=== PATIENT | female | born 1985 | race Caucasian/White ===

== ENCOUNTER 2019-09-05 11:25 | Emergency (ER) | payer OTHER, SELFPAY ==
--- NOTE | ~2019-09-05 | XR_ITS ---
EXAMINATION: XR foot LT min 3V DATE: 09/05/2019 11:48 INDICATION: Left foot injury and pain. TECHNIQUE: 4 views of left foot were obtained. COMPARISON: None. FINDINGS: Bone alignment is normal. No fracture. There is mild osteoarthritis of first metatarsophala ngeal joint. There are enthesophytes at the posterior and plantar aspects of calcaneal tuberosity. IMPRESSION: 1. Mild osteoarthritis of first metatarsophalangeal joint. Reviewed, dictated and finalized at location A.
[2019-09-05 11:37] VITALS: BP 122/59; PULSE 78; RESP 16; TEMP 37.4; O2SAT 98
--- NOTE | 2019-09-05 11:59 | ED.GENADULT ---
HPI - General Adult General Chief complaint: Extremity Injury, Lower Stated complaint: left foot injury Time Seen by Provider: 09/05/19 11:59 Source: patient Mode of arrival: ambulatory Limitations: no limitations History of Present Illness HPI narrative: 33-year-old female patient presents to the the medical center with complaints of left foot/ankle pain that started today. Patient states that she rolled her the left foot whenever she excellently stepped on her hose. Patient states that she heard a pop. Patient states that she did take some ibuprofen for the pain prior to arrival. Denies any numbness of the toes. Patient states it does hurt to walk on it. Patient states she has been using some old crutches that she has had at home. Denies any or breast-feeding at this time. Related Data Home Medications Medication Instructions Recorded Confirmed crisaborole [Eucrisa] 1 applic TOPICAL Q12H 09/05/19 09/05/19 levonorgestrel [Mirena] 1 device INTRAUTERINE ONCE 09/05/19 09/05/19 Allergies Allergy/AdvReac Type Severity Reaction Status Date / Time adhesive Allergy Unknown RASH Verified 09/05/19 11:52 latex Allergy Unknown Rash Verified 09/05/19 11:52 Review of Systems Review of Systems: Narrative: CONSTITUTIONAL: Denies fever, chills, or sweats. EYES: Denies visual changes, redness, or discharge. ENT: Denies rhinorrhea, congestion, sore throat, or otalgia. CARDIOVASCULAR: Denies chest pain, palpitations, or edema. RESPIRATORY: Denies cough or dyspnea. GASTROINTESTINAL: Denies abdominal pain, nausea, vomiting, or diarrhea. GENITOURINARY: Denies dysuria or hematuria. SKIN: Denies rash or itching. MUSCULOSKELETAL: Denies back pain, joint pain, or myalgia. Positive left foot/ankle pain NEUROLOGIC: Denies headache, numbness, or weakness. PSYCHIATRIC: Denies anxiety or depression. PMFSH Surgical History Surgical History (Updated 09/05/19 @ 11:59 by LILIA Brock) Hx of tonsillectomy Comments At the time of my signature I agree with nursing past medical history, surgical, social, and family history. There is no relevant family history pertinent to the presenting complaint. Exam Narrative: Exam Narrative: GENERAL: Well-appearing, well-nourished, and in no acute distress. HEAD: Normocephalic, atraumatic. EYES: PERRLA and EOMI. ENT: Nares clear, no rhinorrhea or epistaxis. Mucous membranes moist. NECK: Supple. No lymphadenopathy CHEST: Clear to auscultation. No respiratory distress. HEART: Regular rate and rhythm. No murmur heard. Normal peripheral pulses. ABDOMEN: Soft, nontender, nondistended, normal active bowel sounds. EXTREMITIES: Patient is unable to bear weight and ambulate on left foot. The L ankle is without obvious asymmetry or deformity when compared to the R ankle. Patient can flex/extend, invert/priya but has increased pain with movement. No obvious surface trauma, ecchymosis. soft tissue swelling noted to the lateral side of the left ankle. Bony tenderness to palpation over the lateral malleolus. Anterior talofibular ligament, posterior talofibular ligament, calcaneofibular ligament nontender and without swelling. No tenderness or deformity of the midfoot or over the proximal fifth metatarsal. Small abrasion noted over the fifth metatarsal. Good DP and posterior tibial pulses and sensation to light touch normal. Talar tilt test is negative for ligament laxity to valgus or vargus stress. Negative anterior draw. Peroneal nerve is intact with strong eversion and plantar flexion. SKIN: Warm, dry, no rash. NEURO: No focal deficits. Alert and oriented x3. Course Vital Signs Vital signs: Vital Signs Temperature 37.4 C 09/05/19 11:37 Pulse Rate 78 09/05/19 11:37 Respiratory Rate 16 09/05/19 11:37 Blood Pressure 122/59 L 09/05/19 11:37 Pulse Oximetry 98 09/05/19 11:37 Temperature 37.4 C 09/05/19 11:37 Pulse Rate 78 09/05/19 11:37 Respiratory Rate 16 09/05/19 11:37 Blood Pr
--- NOTE | 2019-09-05 12:08 | PC.NURSE ---
PT TAKEN TO RADIOLOGY IN WHEELCHAIR
== END 2019-09-05 12:05 | disposition home or self-care (01) ==
PROVIDERS: Emergency Provider Nurse Practitioner Family; PCP Internal Medicine
DX: S93.402A Sprain of unspecified ligament of left ankle, initial encounter (principal); X50.9XXA Other and unspecified overexertion or strenuous movements or postures, initial encounter
CPT/HCPCS: 73630; 99213; G0463

== ENCOUNTER 2021-01-14 15:30 | Outpatient (RCR) | payer OTHER, SELFPAY ==
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
--- NOTE | 2020-12-03 12:29 | PCPTNOTE ---
Patient called & cancelled scheduled appointment this date due to family exposed or positive for COVID.
--- NOTE | 2020-12-15 16:03 | PCPTNOTE ---
Patient called & cancelled scheduled appointment this date due to work issues.
--- NOTE | 2021-01-14 16:28 | PTOPEVAL ---
PHYSICAL THERAPY RE-EVALUATION Thank you for referring Florencia Gamino to [facility].? Florencia was seen for a total of 5 visits. Good progress was made towards pain and soft tissue tension relaxation, increase with sitting and standing tolerance, and ability to perform stretching to help reduce discomfort. She is being referred to a CUSTOMER SERVICE TRAINER specialist in regards to her lower abdominal cramping and pelvic pain. Discussion was had with Florencia in regards to discharge or continuation of treatment. She wants to wait until after CUSTOMER SERVICE TRAINER specialist visit to see if further PT is recommended. I agree with the above. Referring Physician Date Admitting Provider: Attending Provider: Daniel Hooks MD Referring Provider: Therapy Assessment Status Assessment Status Assessment Status Re-evaluation Evaluation Information Problem Diagnosis pelvic and perineal pain Subjective Information Florencia states that she has Query Text:As Reported By Patient/ been trying to be intentional Family in sitting normally - and not shifted to one side. Able to sit for 30 minutes now - will still get soreness - then needs to shift. Standing tolerance - no problems in standing now. Spasms that occur at last treatment lasted until next day. Also had 2-3 episodes of spasms - feels knifelike going up buttocks Did contact MD in regards to the spasms - did receive medication - helped. Also being referred to a CUSTOMER SERVICE TRAINER specialist. Not having loss of urine with sit to stand and doing much better with urge sensations. Overall, Florencia reports feeling so much better. Pain Assessment Timing of Pain Assessment Timing of Pain Assessment Assessment Self Report Pain Assessment Buttock(s) Reported Pain Level 4 Pain Description Aching,Dull,Sharp Lowest Pain Intensity 2 Greatest Pain Intensity 8 Cervical and Lumbar ROM Lumbar ROM Lumbar ROM 75% of Normal Normal Lumbar Segmental Motion Yes Lumbar Comments equal SIJ mobility Pelvic Health Evaluation Pelvic Floor Assessment Permission Received for External/ Yes Internal Perineal Exam External Perineal Body Palpation no tenderness with gluteal muscles or in region where coccyx was removed. Good soft
--- NOTE | 2021-02-18 08:11 | PCPTNOTE ---
PHYSICAL THERAPY DISCHARGE SUMMARY Admitting Provider: Attending Provider: Daniel Hooks MD Patient:Florencia Gamino Date of :1985 Florencia has not returned for any further treatments or called since 01/14/2021 re-evaluation appointment. She is being discharged at this time. Her status is of 01/14/2021 re-evaluation note. Thank you for referring Florencia [facility]. Please review, sign, date and return this discharge summary BROCK. I have been updated about Florencia's current status and I agree with discharge from the above service at this time. Referring Physician Date
== END 2021-02-23 08:44 | disposition home or self-care (01) ==
LOC: ANHHIPT 15:30
PROVIDERS: PCP Internal Medicine; Visit Provider Obstetrics & Gynecology
DX: R10.2 Pelvic and perineal pain (principal)
CPT/HCPCS: 97140; 97162

== ENCOUNTER 2021-01-19 18:21 | Emergency (ER) | payer OTHER, SELFPAY ==
--- NOTE | ~2021-01-19 | CT_ITS ---
EXAMINATION: CT abdomen pelvis wo con DATE: 01/19/2021 19:55 INDICATION: Left flank pain TECHNIQUE: Computed tomography (CT) of the abdomen and pelvis was performed without intravenous contr ast. The dose-length product (DLP) was 785.24 mGy-cm. Automated exposure control and iterative recons truction technique were employed. COMPARISON: 07/27/2017 FINDINGS: Minimal dependent atelectasis is present in the lung bases. The heart size is normal. The l iver, spleen, pancreas, gallbladder, and adrenal glands are normal. The kidneys are unremarkable. No stones are identified in the kidneys, ureters, or bladder. There is no hydronephrosis or hydroureter. No pathologically enlarged abdominal or pelvic lymph nodes are identified. There is no free intraper itoneal gas or evidence of bowel obstruction. An IUD is present in the uterus in expected position. T he appendix is normal. IMPRESSION: 1. No CT correlate for the patient's symptoms. Reviewed, dictated and finalized at location A.
[2021-01-19 18:32] VITALS: BP 139/92; PULSE 100; RESP 16; TEMP 37.2; O2SAT 98
[2021-01-19] MEDS: KETOROLAC 30 MG/ML VIAL (*BKC) IV PUSH (18:42)
[2021-01-19] MEDS: SODIUM CHLORIDE 0.9% IV 1,000 ML 999 ML IV CONT (18:43)
[2021-01-19 18:46] LABS: Basophils Absolute Auto 0.06 K/mm3 (0.00-0.10); Basophils Percent Auto 0.5 % (0.0-1.0); Eosinophils Absolute Auto 0.34 K/mm3 (0.02-0.50); Eosinophils Percent Auto 3.1 % (1.0-6.0); Hemoglobin 13.6 g/dL (12.0-15.0); Immature Granulocyte Absolute 0.04 K/mm3 (0.00-0.00); Immature Granulocyte Percent A 0.4 % (0.0-0.0); Lymphocytes Absolute Auto 3.49 K/mm3 (1.10-4.50); Lymphocytes Percent Auto 31.8 % (18.0-42.0); Mean Corpuscular HGB Conc 33.2 g/dL (32.0-36.0); Mean Corpuscular Hemoglobin 28.5 pg (27.0-31.0); Mean Platelet Volume 10.4 fl (9.2-11.8); Monocytes Percent Auto 4.5 % (2.0-11.0); Neutrophils Absolute Auto 6.6 K/mm3 (1.7-7.2); Neutrophils Percent Auto 59.7 % (50.0-70.0); Platelet Count Result 268 K/mm3 (150-420); Red Blood Count 4.77 M/mm3 (4.20-5.40); Red Cell Distribution Width 12.8 % (11.6-14.4)
[2021-01-19 19:02] LABS: Alanine Aminotransferase 41 U/L (14-59); Albumin Level 3.8 g/dL (3.4-5.0); Alkaline Phosphatase 84 U/L (46-116); Anion Gap 9 mmol/L (8-16); Aspartate Amino Transferase 13 U/L (15-37); Bilirubin,Total 0.2 mg/dL (0.00-1.00); Blood Urea Nitrogen 19 mg/dL (7-18); Carbon Dioxide 28 mmol/L (21-32); Chloride 104 mmol/L (98-108); Estimated CRCL calculation 90 ml/min; Estimated Glomerular Filt Rate > 60; Glucose 138 mg/dL (70-99); Lipase 103 U/L (73-393); Osmolality Calculated 296 mOsm/kg (285-295); Potassium 3.6 mmol/L (3.5-5.1); Sodium 141 mmol/L (136-145); Total Protein 7.2 g/dL (6.4-8.2)
--- NOTE | 2021-01-19 19:31 | PC.NURSE ---
UA walked to lab
[2021-01-19 19:34] LABS: Appearance Urine Clear (Clear); Bilirubin Urine Negative (Negative); Color Urine Light Yellow (Yellow); Glucose Urine UA Negative (Negative); Ketones Urine Negative (Negative); Leukocyte Esterase Ur Negative (Negative); Nitrate Urine Negative (Negative); Protein Urine Negative (Negative); Specific Grav Ur 1.025 (1.010-1.020); Urobilinogen Urine 0.2 mg/dL (0.2-1.0); pH Urine 5.5 (5.0-8.0)
[2021-01-19 19:39] LABS: Add Urine Microscopic? YES; Blood Urine Trace (Negative); RBC Urine 0-2 /hpf (0-2); Squamous Epithelial Cell Urine Few /hpf (Few); WBC Urine 0-3 /hpf (0-3)
[2021-01-19 19:40] LABS: Bacteria Urine Trace /hpf; Pregnancy On Board Control Positive; Urine Pregnancy Test Negative
--- NOTE | 2021-01-19 20:02 | PC.NURSE ---
Pt resting comfortably at this time. Updated on plan of care. Rates pain 2/10. Denies any needs or complaints.
--- NOTE | 2021-01-19 20:21 | ED.FEMALEGU ---
HPI - Female Genitourinary General Chief complaint: Urogenital-Female Stated complaint: Possible Kidney Stone Source: patient Mode of arrival: ambulatory Limitations: no limitations History of Present Illness HPI Narrative: this 35-year-old female presents with some left flank discomfort radiating into her left groin area has a history of kidney stones currently no fever or chills her vitals are stable, there is no nausea vomiting no dysuria no hematuria no diarrhea constipation no chest pain or shortness of breath. MD elicited complaint: flank pain Onset (ago): day(s) Severity: mild Quality of pain: dull Related Data Home Medications Medication Instructions Recorded Confirmed levonorgestrel [Mirena] 1 device INTRAUTERINE ONCE 09/05/19 01/19/21 Allergies Allergy/AdvReac Type Severity Reaction Status Date / Time adhesive Allergy Unknown RASH Verified 01/19/21 20:04 latex Allergy Unknown Rash Verified 01/19/21 20:04 Review of Systems Review of Systems: All systems reviewed & are unremarkable except as noted in HPI and below PMFSH Past Medical History Medical History Acid reflux Surgical History Surgical History H/O lithotripsy History of surgical removal of ganglion cyst left wrist Hx of tonsillectomy Family History Family History Mother Cervical cancer Father Diabetes mellitus Social History Social History Smoking status: Never smoker Alcohol intake: current Substance use: never Exam Const: General: no acute distress Orientation/consciousness: patient oriented x3 HENMT: Head: normal to inspection Eyes: Conjunctivae: conjunctivae normal Pupils: Equal, round and reactive pupils present Neck: Neck: normal visual inspection, no lymphadenopathy and no meningeal signs Chest: Chest palpation & inspection: normal inspection of the chest Resp: Effort & Inspection: normal respiratory effort Auscultation: clear to auscultation bilaterally Cardio: Rate: regular rate Rhythm: regular rhythm GI: GI Palp: Yes Soft to palpation : General: Yes CVA tenderness ( Left) Skin: General skin exam: normal color Rashes: no rashes Neuro: General: patient oriented x3 and moves all extremities Extrem: General: normal to inspection and no pedal edema Psych: Mental Status: mental status grossly normal Affect: normal affect Course Course Emergency Course: CT scan and blood work along with urinalysis reviewed with patient there was no CT findings that correlate with her symptoms patient pain level is markedly improved with some Toradol and IV fluids. Vital Signs Vital signs: Vital Signs Temperature 37.2 C 01/19/21 18:32 Pulse Rate 100 01/19/21 18:32 Respiratory Rate 16 01/19/21 18:32 Blood Pressure 139/92 H 01/19/21 18:32 Pulse Oximetry 98 01/19/21 18:32 Temperature 37.2 C 01/19/21 18:32 Pulse Rate 100 01/19/21 18:32 Respiratory Rate 16 01/19/21 18:32 Blood Pressure 139/92 H 01/19/21 18:32 Pulse Oximetry 98 01/19/21 18:32 MDM - Female Genitourinary Lab Data Result diagrams: 01/19/21 18:42 01/19/21 18:42 Labs: Lab Results 01/19/21 01/19/21 01/19/21 Range/Units 18:42 18:42 19:31 WBC 11.0 H (4.8-10.8) K/mm3 RBC 4.77 (4.20-5.40) M/mm3 Hgb 13.6 (12.0-15.0) g/dL Hct 41.0 (35.0-49.0) % MCV 86.0 (78.0-102.0) fL MCH 28.5 (27.0-31.0) pg MCHC 33.2 (32.0-36.0) g/dL RDW 12.8 (11.6-14.4) % Plt Count 268 (150-420) K/mm3 MPV 10.4 (9.2-11.8) fl Immature Gran % (Auto) 0.4 H (0.0-0.0) % Neut % (Auto) 59.7 (50.0-70.0) % Lymph % (Auto) 31.8 (18.0-42.0) % [place] % (Auto) 4.5 (2.0-11.0) % Eos % (Auto) 3.1 (1.0-6.0) % Baso % (Auto) 0.5
[2021-01-19 20:40] VITALS: BP 122/96; PULSE 74; RESP 16; O2SAT 97
== END 2021-01-19 20:45 | disposition home or self-care (01) ==
PROVIDERS: Emergency Provider Emergency Medicine; PCP Internal Medicine
DX: R10.32 Left lower quadrant pain (principal)
CPT/HCPCS: 36415; 74176; 80053; 81001; 81025; 83690; 85025; 96361; 96374; 99283; 99284; J1885; J7030

== ENCOUNTER 2021-11-04 16:56 | Outpatient (RCR) | payer OTHER, SELFPAY ==
--- NOTE | 2021-11-04 17:38 | PTOPEVAL ---
Thank you for referring Florencia Gamino to [facility].? The patient is scheduled to be seen for therapy? ____x/week for ___ weeks. Please review, sign, date and return this plan of care BROCK. I agree with and certify that the following plan of care is medically necessary. Referring Physician Date Admitting Provider: Attending Provider: Jennifer Valencia, Referring Provider: *PT Outpatient Evaluation Start: 11/04/21 16:57 Freq: Status: Active Protocol: Document 11/04/21 17:05 [facility] (Rec: 11/04/21 17:37 [facility] [id number]) Therapy Assessment Status Assessment Status Assessment Status Evaluation Outpatient Past Medical History Genitourinary History Hx Kidney Stones Yes: hydroneurosis L kidney- stent-stone blasted-another stent placed temporarily Musculoskeletal History Hx Other Musculoskeletal Disorders Yes: COCCYX REMOVED 2015, spinal bifida occulta L4,5, spine abnormalities-extra HEENT History Hx Tonsillectomy Yes Integumentary History Hx Eczema Yes Hx Other Skin Disorders Yes: LEFT WRIST CYST REMOVED Reproductive History Hx Section Yes: X 2 - Evaluation Information Problem Diagnosis bilateral knee pain, patellar tendon pain, PFPS Onset 10/14/21 Additional Evaluation Detail LEFS = 41% functionally declined Subjective Information patient reports she initially Query Text:As Reported By Patient/ injured her knees in the Family millitary back in 2002. she reports she injured it running and was told she had tendonitis. she reports she eventually hurt the R knee as well. she reports she has been to several ortho docs for her knee pain. 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 she reports the L knee is worse than the R knee. she reports she has increased pain with sitting (sharp pains), getting up and down from chairs and on stairs, and squat to pick anything up. Prior Level of Function Comments Additional Prior Level of Function patient reports she has been Comments
== END 2021-11-23 14:54 | disposition home or self-care (01) ==
LOC: CHSPT 16:56
PROVIDERS: Visit Provider Family Medicine Sports Medicine
DX: M25.561 Pain in right knee (principal); M25.562 Pain in left knee; G89.29 Other chronic pain; M22.2X1 Patellofemoral disorders, right knee; M22.2X2 Patellofemoral disorders, left knee; M76.50 Patellar tendinitis, unspecified knee
CPT/HCPCS: 97014; 97110; 97161; G0283

== ENCOUNTER 2022-05-19 00:27 | Day surgery (SDC) | payer OTHER, SELFPAY ==
--- NOTE | 2022-05-11 15:36 | PC.NURSE ---
Report to the Outpatient Waiting Room, entrance under the green pavilion located off [facility], at time 1030 on date 05/19/22. Planned Procedure Time: 1230. Time changes happen often and if your time is changed the preop area will call you the afternoon before. - You and your visitor will be asked to self-screen and do not enter if you have any COVID symptoms. - Only one visitor is requested with a max of two and NO children visitors are allowed at this time. - The patient visitor may be requested to leave or wait in car when not with patient due to distancing restrictions. - A mask is optional within the hospital at this time. Patients may have clear liquids (water, carbonated beverages, clear teas, apple juice) until 3 hours prior to surgery with a maximum of 20 ounces. - No food from midnight until time of surgery Take the following medications with a SIP of water the morning of surgery: CYCLOBENZAPRINE AND/OR TRAMADOL IF NEEDED DO NOT STOP ANY OF YOUR OTHER PRESCRIPTION MEDICATIONS PRIOR TO SURGERY EXCEPT THE FOLLOWING Medications to discontinue per physician: VITAMINS/SUPPLEMENTS Date to take last dose: 05/15/22 Please no make-up, nail wallisian, hairspray, perfume, deodorant, or body powder the day of surgery. No jewelry (including any body piercings) or valuables the day of surgery, leave them at home. Please take a shower or bath the night before, or the morning of, surgery with an antibacterial soap. Wear comfortable, loose fitting clothing. - Jewelry must be removed prior to entering the operating room. Rings and piercings that are not removed may be cut off. - The hospital will not accept responsibility for valuables. - Please leave all valuables, including medications, at home the day of surgery. If you are going home after surgery, a licensed fire truck driver must drive you home. - NO public transportation without another adult if you receive anesthesia. - We recommend that an adult stay with you for 24 hours following discharge. - We also recommend that you do not drive, make important decision, drink alcoholic beverages, or take any drugs that were not prescribed by your health care provider for at least 24 hours after your discharge time. Follow any additional instructions given to you from your surgeon. If you or anyone in your household have experienced Covid symptoms in the past week, please notify your surgeon or the nurse liaison at the phone number below for possible testing. Telephone instructions given to PT - NORM BOTELLO and asked if any additional questions and then verbalized understanding. Patient advised to call surgeon office or pre surgery nurse liaison [phone] if any additional questions.
[2022-05-11 15:44] VITALS: BMI 38.7
[2022-05-19] VITALS (14 sets, daily range): BP systolic 106–138; BP diastolic 47–87; PULSE 63–90; RESP 14–20; TEMP 36.6–36.8; O2SAT 95–100
--- NOTE | 2022-05-19 08:25 | PM.IMHP ---
H&P: HPI History of Present Illness Date/Time: 05/19/22 08:25 Chief Complaint: Pelvic pain Narrative: patient is here with a history of chronic pelvic pain. The pain is significant in the lower abdomen rectal area. She has had a history of endometriosis based on cyclic pain and had a response with [facility]. She did stop or elicit due to insurance coverage issues and her pain resumed. She has been given options of trial of other medications or laparoscopy to confirm and remove endometriosis lesions if present. She has also been given options of Depo Lupron. Review of Systems Review of Systems: All systems reviewed & are unremarkable except as noted in HPI and below Constitutional: Constitutional: Reports no additional constitutional complaints Eyes: Eyes: Reports no additional eye complaints Cardiovascular: Cardiovascular: Reports no additional cardiovascular complaints Respiratory: Respiratory: Reports no additional respiratory complaints Gastrointestinal: Gastrointestinal: Reports no additional gastrointestinal complaints Genitourinary: Genitourinary: Reports no additional female genitourinary complaints and Reports as per HPI Integumentary/Breasts: Skin/Breast: Reports system reviewed and no additional complaints, except as docu Neurologic: Reports system reviewed and no additional complaints, except as documented Psychiatric: Psychiatric: Reports no additional psychiatric complaints Hematologic/Lymphatic: Hematologic/Lymphatic: Reports no additional hematologic/lymphatic complaints PMFSH Past Medical History Medical History Acid reflux Surgical History Surgical History H/O lithotripsy History of back surgery coccygectomy History of surgical removal of ganglion cyst left wrist Hx of tonsillectomy Family History Family History Mother Cervical cancer Father Diabetes mellitus Social History Social History Smoking status: Never smoker Alcohol intake: never Substance use: never Substance use type: does not use Living arrangements: with family Spiritual care concerns: No Meds Home Medications and Allergies Home Medications Medication Instructions Recorded Confirmed Type levonorgestrel 21 mcg/24 hours (8 1 device intrauterine ONCE 09/05/19 05/11/22 History yrs) 52 mg intrauterine device (Mirena) Saccharomyces boulardii 250 mg 250 mg PO BID 06/22/21 05/11/22 History capsule (Daily Probiotic (S. boulardii)) cholecalciferol (vitamin D3) 25 25 mcg PO DAILY 06/22/21 05/11/22 History mcg (1,000 unit) capsule cyanocobalamin (vitamin B-12) 1,000 mcg PO DAILY 06/22/21 05/11/22 History 1,000 mcg capsule tramadol 50 mg tablet 50 mg PO Q6H PRN Pain 06/22/21 05/11/22 History cyclobenzaprine 5 mg tablet 5 mg PO TID PRN muscle spasm #30 02/16/22 05/11/22 Rx tabs Allergies Allergy/AdvReac Type Severity Reaction Status Date / Time adhesive Allergy Unknown RASH Verified 05/11/22 15:30 latex Allergy Unknown Rash Verified 05/11/22 15:30 Exam Const: General: comfortable and no acute distress Orientation/consciousness: oriented to person, oriented to place and oriented to time Eyes: General: appearance normal, both eyes and all related structures Neck: Neck: normal visual inspection Resp: Effort & Inspection: normal respiratory effort Auscultation: clear to auscultation bilaterally Cardio: Rate: regular rate Rhythm: regular rhythm GI: Inspection: normal to inspection GI Palp: Yes No hepatosplenomegaly present Other: Mild lower abdominal tenderness diffusely no rebound : External Female Exam: normal external appearance Speculum Exam - Vagina: normal appearance of the vagina Speculum Exam - Cervix: normal appearance of the
[2022-05-19] MEDS: ACETAMINOPHEN 500 MG TABLET 1000 MG PO (10:06)
[2022-05-19] MEDS: LACTATED RINGERS 1,000 ML 30 ML IV CONT ×2 (10:20→13:06)
[2022-05-19] MEDS: KETOROLAC 15 MG/ML VIAL (*BKC) IV PUSH (10:34)
--- NOTE | 2022-05-19 10:46 | P.PNAN_ITS ---
Anes - Initial Pre Proc Eval Procedure: Operation Date: 05/19/22 12:00 Proposed Procedures p Robotic Assisted Diagnostic Laparoscopy with Possible Resection of Endometriosis - Daniel Hooks MD Date/Time: 05/19/22 10:46 Surgeon: Daniel Hooks MD Pre Op Diagnosis: Pelvic Pain, Endometriosis Patient Data Age: 36 Gender: F Height: 1.52 m Weight: 90.3 kg Last Vital Signs Temp 97.8 F 05/19/22 10:39 Pulse 79 05/19/22 10:39 Resp 16 05/19/22 10:39 BP 115/72 05/19/22 10:39 Pulse Ox 97 05/19/22 10:39 O2 Del Method Room Air 05/19/22 10:39 Allergies Allergy/AdvReac Type Severity Reaction Status Date / Time adhesive Allergy Unknown RASH Verified 05/19/22 10:01 latex Allergy Unknown Rash Verified 05/19/22 10:01 Home Medications Medication Instructions Recorded Confirmed Type levonorgestrel 21 mcg/24 hours (8 1 device intrauterine ONCE 09/05/19 05/11/22 History yrs) 52 mg intrauterine device (Mirena) Saccharomyces boulardii 250 mg 250 mg PO BID 06/22/21 05/11/22 History capsule (Daily Probiotic (S. boulardii)) cholecalciferol (vitamin D3) 25 25 mcg PO DAILY 06/22/21 05/11/22 History mcg (1,000 unit) capsule cyanocobalamin (vitamin B-12) 1,000 mcg PO DAILY 06/22/21 05/11/22 History 1,000 mcg capsule tramadol 50 mg tablet 50 mg PO Q6H PRN Pain 06/22/21 05/11/22 History cyclobenzaprine 5 mg tablet 5 mg PO TID PRN muscle spasm #30 02/16/22 05/11/22 Rx tabs Patient hx anesthesia problems: none Family hx anesthesia problems: none Results Review: All pre-operative results and documents have been reviewed as part of the pre- operative evaluation. [facility] Past Medical History Medical History Acid reflux Surgical History Surgical History H/O lithotripsy History of back surgery coccygectomy History of surgical removal of ganglion cyst left wrist Hx of tonsillectomy Family History Family History Mother Cervical cancer Father Diabetes mellitus Social History Social History Smoking status: Never smoker Alcohol intake: never Substance use: never Substance use type: does not use Living arrangements: with family Spiritual care concerns: No Anes - Eval Final PreProcedure Day of Procedure 05/19/22 10:46 Patient weight: obese Heart: regular rate and rhythm Lungs: clear to auscultation Airway: Mallampati scale class II Neurological: alert and oriented Last oral intake: >/= 8 hours ASA classification: II Emergent: no Anesthetic plan: proceed Anesthesia type and monitoring: general ETT and standard monitoring Results Review: All pre-operative results and documents have been reviewed as part of the pre- operative evaluation. Informed Consent: The patient's anesthetic plan and its attendant risks and benefits were discussed with the patient/family/POA. Questions were solicited and answers provided to the satisfaction of the patient/family/POA.
--- NOTE | 2022-05-19 12:01 | WPDHPUPDATE1 ---
History and Physical Update Update Date/Time: 05/19/22 12:01 History and Physical has been reviewed, including an updated exam of the patient. There are NO changes in the patient's condition. Risks, benefits, and alternatives have been discussed and questions answered. Patient agrees to proceed with procedure.
[2022-05-19] MEDS: BUPivacaine HCL 0.5% PF 30 ML VIAL INFILTRATE (12:35)
--- NOTE | 2022-05-19 13:26 | P.OP_ITS ---
Procedure Note - Detailed Date of Procedure 05/19/22 Pre-op Diagnosis Pelvic Pain, Endometriosis Post-op Diagnosis Same Procedure Performed Diagnostic laparoscopy Lysis of adhesions Surgeon Daniel Hooks MD Commercial Marketing Specialist Johny Anesthesia General Indications Patient with chronic pelvic pain cyclic. Findings Normal uterus fallopian tubes and ovaries no endometriosis implants visualized there was a large band of scar tissue of the omentum to the lower abdominal wall and left pelvic wall. Description of Procedure After informed consent was obtained patient was taken to the operating room and adequate general endotracheal anesthesia was administered. She was prepped and draped in sterile fashion. Attention was turned to the vagina speculum was inserted single-tooth tenaculum placed on the anterior lip of the cervix an acorn uterine manipulator was placed into the cervical canal. A straight catheter was placed in bladder and small amount of urine obtained, clear yellow. Speculum was removed. Attention was turned to the abdomen 2 cm above the umbilicus 5 cc of 0.5% Marcaine was injected subcutaneously a vertical incision was then made subcutaneous tissue was dissected with the clamp a Veress needle was inserted confirmation into the abdomen obtained with normal free flow of fluid and normal peritoneal pressures. A 5 mm port was inserted under laparoscopic visualization confirmation into the abdomen obtained. Attention was turned to the left side of the abdomen 8 cm lateral to the supraumbilical port and 3 cc of% Marcaine was injected subcutaneous and an 8 mm robotic port was inserted under laparoscopic visualization. Attention was turned to the right side of the abdomen and 8 cm to the right of the umbilical port Marcaine was injected and an incision was made and an 8 mm robotic port was inserted under laparoscopic visualization. Patient was placed in Trendelenburg position. The pelvic organs were visualized. The large band of omental tissue that was attached to the lower abdomen towards her left side was lysed with the scissors. Hemostasis was noted. The rest of the pelvic organs were visualized. No endometriosis implants were visualized. The patient was taken out of Trendelenburg position the ports were removed the pneumoperitoneum was released prior to removing the port the skin incisions were closed in a subcuticular fashion with 4-0 Vicryl Dermabond placed. Attention was turned to the vagina the acorn manipulator was removed and the tenaculum was removed hemostasis was noted. Sponge count was correct x2. Patient was extubated in operating room and taken to recovery room in stable condition. Estimated Blood Loss 5 Urine Output 15 Drains No Packing No Pathology None sent Complications No immediate complications Condition Stable Disposition Same day [facility] Billing Surgery - Charge Forward: Surgery Billing
[2022-05-19] MEDS: fentaNYL CITRATE INJ (*CRX) 100 MCG/2 ML VIAL 25 MCG IV PUSH ×2 (13:29→13:33)
[2022-05-19] MEDS: oxyCODONE HCL (*CRX) 5 MG TAB IR PO (14:27)
--- NOTE | 2022-05-19 15:23 | SUR.PHASEII ---
pt met discharge criteria and said her pain was a 4/10. this nurse got the IV out and pt went to the bathroom and pt said she had sudden pain in her abd and she was hunched over. this nurse called dr fleming and she came to bedside. pt had no vaginal bleeding. this nurse and rn darshan placed pt in a stretcher and in room 17.
[2022-05-19] MEDS: SOLIFENACIN 5 MG TABLET PO (15:55)
[2022-05-19] MEDS: CYCLOBENZAPRINE HCL 10 MG TABLET PO (17:00)
--- NOTE | 2022-05-19 17:43 | SUR.PHASEII ---
pt pain improved with nancy quintana this nurse called dr perkins and informed pt improved and will discharge now.
== END 2022-05-19 17:40 | disposition home or self-care (01) ==
PROVIDERS: Visit Provider Obstetrics & Gynecology
PROC: 8E0W4CZ Robotic Assisted Procedure of Trunk Region, Percutaneous Endoscopic Approach (ICD-10-PCS; CPT 49320; principal; 2022-05-19 12:00)
DX: N73.6 Female pelvic peritoneal adhesions (postinfective) (principal); R10.2 Pelvic and perineal pain; E66.9 Obesity, unspecified; Z68.38 Body mass index [BMI] 38.0-38.9, adult; Z87.42 Personal history of other diseases of the female genital tract
CPT/HCPCS: 58660; 36415; 86850; 86900; 86901; A9270; J1100; J1170; J1885; J2250; J2405; J2704; J2710; J3010; J7030; J7120

== ENCOUNTER 2022-05-20 08:26 | Inpatient (IN) | payer OTHER, SELFPAY ==
[2022-05-20] VITALS (12 sets, daily range): BP systolic 122–157; BP diastolic 62–101; PULSE 90–118; RESP 15–28; TEMP 36.4–37.3; O2SAT 90–99; BMI 34.2
--- NOTE | ~2022-05-20 | US_ITS ---
US renal BI 05/20/2022 15:27 Procedure: Realtime transabdominal ultrasound of the kidneys and bladder. Indication: Acute renal injury. Right flank pain. Comparison: No prior studies for comparison. Findings: Renal echotexture is normal bilaterally without hydronephrosis, contour deforming mass or r enal calculus. The right kidney measures 10.7 cm and left kidney measures 11.3 cm. Bladder within no rmal limits. There is moderate ascites. There is localized fluid inferior to the spleen, likely local ized ascites. Impression: 1: Unremarkable renal ultrasound. No stones, masses or hydronephrosis. 2: Moderate ascites. Reviewed, dictated and finalized at location A. TIC SURGEON Impression: 1: Unremarkable renal ultrasound. No stones, masses or hydronephrosis. 2: Moderate ascites.
--- NOTE | ~2022-05-20 | XR_ITS ---
EXAMINATION: XR retrograde pyelogram BI DATE: 05/20/2022 21:00 SAFETY SITTER INDICATION: Acute renal injury TECHNIQUE: Multiple fluoroscopic images from a bilateral retrograde pyelogram are submitted for mika quarles] 194 images. 55 seconds of fluoroscopy. FINDINGS: There is normal retrograde filling of bilateral ureters which are normal in course and tasneem cj. No filling defects or strictures are identified. Renal calyces are normally cupped bilaterally. The bladder is unremarkable. There is an IUD in the pelvis. IMPRESSION: 1. Unremarkable bilateral retrograde pyelogram.. Correlate with real time procedural findings for de tails. Reviewed, dictated and finalized at location A. TY SITTER IMPRESSION: 1. Unremarkable bilateral retrograde pyelogram.. Correlate with real time proc edural findings for details.
--- NOTE | ~2022-05-20 | CT_ITS ---
EXAMINATION: CT abdomen pelvis wo con DATE: 05/20/2022 10:30 INDICATION: Right lower quadrant abdominal pain TECHNIQUE: Computed tomography (CT) of the abdomen and pelvis was performed without intravenous contr ast. Automated exposure control and iterative reconstruction technique were employed. The dose-length product was 987.68 mGy-cm. COMPARISON: 01/19/2021 FINDINGS: Atelectasis at the bilateral lower lungs, moderate in the bilateral lower lobes and mild in the lingu la and right middle lobe. Heart size is normal. No pericardial or pleural effusion. Dependently layer ing sludge in the otherwise unremarkable gallbladder. Liver, spleen, pancreas, bilateral adrenal glan ds and kidneys are normal. No abnormal bowel wall thickening or obstruction. Normal appendix. Bladder and bilateral adnexa are unremarkable. IUD in expected position within the anteverted uterus. Modera te amount of simple fluid attenuation ascites scattered throughout the abdomen and pelvis. There is a lso some retroperitoneal stranding/fluid along the right paracolic gutter. Very small fat-containing umbilical hernia. Small amount of gas and stranding in the subcutaneous fat slightly cephalad to the umbilicus likely related to reported recent surgery. No loculated abscess or free intraperitoneal gas . No pathologically enlarged abdominal or pelvic lymphadenopathy. Bones are unremarkable. IMPRESSION: 1. Nonspecific moderate amount of simple fluid attenuation ascites scattered throughout the abdomen a nd pelvis along with a small amount of right retroperitoneal fluid/stranding along the paracolic gutt er. 2. No abscess, hemoperitoneum, free intraperitoneal gas or other acute intra-abdominal/pelvic process . 3. IUD in expected position within the anteverted uterus. Reviewed, dictated and finalized at location D. ICAL CHEMISTRY PROFESSOR IMPRESSION: 1. Nonspecific moderate amount of simple fluid attenuation ascites scattered th roughout the abdomen and pelvis along with a small amount of right retroperiton eal fluid/stranding along the paracolic gutter. 2. No abscess, hemoperitoneum, free intraperitoneal gas or other acute intra-ab dominal/pelvic process. 3. IUD in expected position within the anteverted uterus.
[2022-05-20] MEDS: SODIUM CHLORIDE 0.9% IV 1,000 ML 999 ML IV CONT ×3 (08:59→12:36)
[2022-05-20] MEDS: HYDROmorphone HCL INJ (*CRX) 1 MG/ML SYR IV PUSH ×5 (08:59→20:17)
--- NOTE | 2022-05-20 09:07 | ED.GENADULT ---
HPI - General Adult General Chief complaint: Urogenital-Female Stated complaint: post op yesterday - unable to urinate x 24 hours Time Seen by Provider: 05/20/22 08:47 History of Present Illness HPI narrative: 36-year-old female presenting to the emergency department for evaluation of lower abdominal pain. Patient an exploratory laparoscopy yesterday by Dr. Hooks for removal of scar tissue secondary to endometriosis. Patient states after the surgery she was having some suprapubic abdominal pain was associated with a bladder spasm. Patient was treated for bladder spasm and felt the symptoms improved. At approximately 2 AM patient states she began having right flank pain and right lower quadrant pain. Patient states since that time the pain is continued to worsen. Patient states that she now has tenderness throughout her entire abdomen. Patient states she did have some food last night but has had decreased p.o. intake. Patient states she has not been passing flatus and has not had a bowel movement. Related Data Home Medications Medication Instructions Recorded Confirmed levonorgestrel 21 mcg/24 hours (8 1 device intrauterine ONCE 09/05/19 05/11/22 yrs) 52 mg intrauterine device (Mirena) Saccharomyces boulardii 250 mg 250 mg PO BID 06/22/21 05/11/22 capsule (Daily Probiotic (S. boulardii)) cholecalciferol (vitamin D3) 25 25 mcg PO DAILY 06/22/21 05/11/22 mcg (1,000 unit) capsule cyanocobalamin (vitamin B-12) 1,000 mcg PO DAILY 06/22/21 05/11/22 1,000 mcg capsule tramadol 50 mg tablet 50 mg PO Q6H PRN Pain 06/22/21 05/11/22 Allergies Allergy/AdvReac Type Severity Reaction Status Date / Time adhesive Allergy Unknown RASH Verified 05/20/22 08:27 latex Allergy Unknown Rash Verified 05/20/22 08:27 Review of Systems Review of Systems: CONSTITUTIONAL: Denies fever, chills, or sweats. EYES: Denies visual changes, redness, or discharge. ENT: Denies rhinorrhea, congestion, sore throat, or otalgia. CARDIOVASCULAR: Denies chest pain, palpitations, or edema. RESPIRATORY: Denies cough or dyspnea. GASTROINTESTINAL: See HPI GENITOURINARY: Denies dysuria or hematuria. SKIN: Denies rash or itching. MUSCULOSKELETAL: Denies back pain, joint pain, or myalgia. NEUROLOGIC: Denies headache, numbness, or weakness. [facility] Past Medical History Medical History Acid reflux Cyclical pelvic pain Surgical History Surgical History History of 2 sections History of laparotomy (05/19/22) History of laser assisted in situ keratomileusis History of lithotripsy History of spinal surgery Coccygectomy. History of surgical removal of ganglion cyst Left wrist. History of tonsillectomy Family History Family History Mother Cervical cancer Father Diabetes mellitus Social History Social History Social History: Surrogate medical decision maker: Cuba Stevenson, spouse. Code status: Full code. Smoking status: Never smoker Alcohol intake: never Substance use: never Substance use type: does not use Living arrangements: with family Additional living arrangements comments: Lives with and 2 children in [place]. 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 Spiritual care concerns: No Exam Narrative: APPEARANCE: Well appearing, no pain, no distress, well-nourished. HEAD: normocephalic, atraumatic. EYES: PERRLA/EOMI, conjunctivae clear. NOSE: Normal no drainage NECK: Supple. No adenopathy, no masses. RESPIRATORY: Airway patent, respirations nonlabored. Clear to auscultation bilaterally, no rales, rhonchi, wheezing. CARDIOVASCULAR: Regular rate and rhythm without murmurs rubs or gallops. ABDOMINAL: Decreased bowel sounds, widely tender abdomen MUSCU
[2022-05-20 09:15] LABS: Basophils Percent Auto 0.2 % (0.2-1.2); Hematocrit 44.4 % (37.0-47.0); Immature Granulocyte Absolute 0.16 K/mm3 (0.00-0.031); Immature Granulocyte Percent A 0.6 % (0-0.5); Lymphocytes Absolute Auto 1.61 K/mm3 (0.9-3.2); Lymphocytes Percent Auto 6.5 % (18.3-44.2); Mean Corpuscular HGB Conc 33.8 g/dl (32-36); Mean Corpuscular Hemoglobin 28.2 pg (26-34); Mean Corpuscular Volume 83.5 fl (80-100); Mean Platelet Volume 10.4 fl (7.4-10.4); Monocytes Absolute Auto 1.1 K/mm3 (0.1-0.6); Monocytes Percent Auto 4.6 % (2.6-8.5); Neutrophils Absolute Auto 21.8 K/mm3 (1.3-6.7); Neutrophils Percent Auto 88.1 % (45.5-73.1); Platelet Count Result 381 k/mm3 (150-375); Red Blood Count 5.32 M/mm3 (4.2-5.4); Red Cell Distribution Width 13.2 % (11.5-14.5); White Blood Count 24.7 K/mm3 (4.5-10.0)
[2022-05-20 09:17] LABS: Appearance Urine Clear (Clear); Bilirubin Urine Negative (Negative); Blood Urine 2+ (Negative); Color Urine Yellow (Yellow); Glucose Urine UA Negative (Negative); Ketones Urine Negative (Negative); Leukocyte Esterase Ur Trace LEU/UL (Negative); Nitrate Urine Negative (Negative); Protein Urine Negative (Negative); Specific Grav Ur <= 1.005 (1.001-1.035); Urobilinogen Urine 0.2 mg/dL (<2.0); pH Urine 5.5 (5.0-9.0)
[2022-05-20 09:23] LABS: RBC Urine 0-2 /hpf (0-2); Squamous Epithelial Cell Urine Occasional /hpf (Few); WBC Urine 16-20 /hpf
[2022-05-20 09:26] LABS: Lactic Acid Reflex 2.5 mmol/L (0.7-2.0)
[2022-05-20 09:27] LABS: Alanine Aminotransferase 26 U/L (6-35); Alkaline Phosphatase 79 U/L (38-126); Anion Gap 14 mmol/L (8-16); Aspartate Amino Transferase 24 U/L (14-36); Bilirubin,Total 0.8 mg/dL (0.2-1.3); Blood Urea Nitrogen 28 mg/dL (7-17); Calcium 9.2 mg/dL (8.4-10.2); Carbon Dioxide 21 mmol/L (22-30); Chloride 98 mmol/L (98-107); Estimated CRCL calculation 28 ml/min; Estimated Glomerular Filt Rate 22; Glucose 168 mg/dL (65-110); Potassium 4.8 mmol/L (3.4-5.0); Sodium 133 mmol/L (137-145)
[2022-05-20 09:38] LABS: Prothrombin Time 13.1 Seconds (11.1-14.7)
[2022-05-20 09:39] LABS: Partial Thromboplastin Time 27.1 SECONDS (22.3-36.8)
[2022-05-20 09:47] LABS: Add Urine Microscopic? YES
[2022-05-20 09:50] LABS: Influenza A QL RT-PCR Negative (Negative); Influenza B QL RT-PCR Negative (Negative); RSV RNA, RT-PCR Negative (Negative); SARS-CoV-2 RNA PCR Negative
--- NOTE | 2022-05-20 11:30 | PC.NURSE ---
Report received from Renee GOMEZ including history and physical and plan of care
[2022-05-20 11:57] LABS: Anion Gap 9 mmol/L (8-16); Blood Urea Nitrogen 27 mg/dL (7-17); Calcium 8.1 mg/dL (8.4-10.2); Carbon Dioxide 21 mmol/L (22-30); Chloride 105 mmol/L (98-107); Estimated CRCL calculation 28 ml/min; Estimated Glomerular Filt Rate 22; Glucose 132 mg/dL (65-110); Potassium 5.2 mmol/L (3.4-5.0); Sodium 135 mmol/L (137-145)
[2022-05-20 12:12] LABS: Reflex Lactic Acid Yes or No Add Lactic
[2022-05-20] MEDS: ONDANSETRON INJ 4 MG/2 ML VIAL IV PUSH ×2 (12:37→20:17)
--- NOTE | 2022-05-20 13:30 | WPDCN ---
Assessment and Plan Assessment and plan (1) Sepsis: Code(s): A41.9 - Sepsis, unspecified organism Status: Acute Assessment and Plan: Patient meets sepsis criteria with tachycardia, tachypnea, leukocytosis, and elevated lactic acid level. Lactic acid has improved with IV fluid rehydration. Her blood pressures have remained stable. Blood cultures obtained and are pending. (2) Acute kidney injury: Code(s): N17.9 - Acute kidney failure, unspecified Status: Acute Assessment and Plan: Etiology not entirely clear. Consider secondary to sepsis, possible bladder or ureteral injury during surgery, drug related versus other. Nephrology has been consulted and their input is greatly appreciated. Monitor strict I/O. Continue IV fluid rehydration and empiric antibiotics (Zosyn). (3) Abdominal pain: Code(s): R10.9 - Unspecified abdominal pain Status: Acute Assessment and Plan: Patient has experienced diffuse abdominal pain since not long after surgery and it now seems to be more on the right side. Her abdomen is distended, firm, and she has some peritoneal findings. Case discussed with Dr. Hooks, agree with Urology consultation. Continue NPO status as she may need to go to the OR today. Analgesics available as needed. (4) Abnormal computed tomography of abdomen and pelvis: Code(s): R93.5 - Abnormal findings on diagnostic imaging of other abdominal regions, including retroperitoneum Status: Acute Assessment and Plan: CT shows a moderate amount of fluid attenuation ascites scattered throughout the abdomen pelvis along with a small amount of right retroperitoneal fluid/stranding along the pericolic gutter. Concerns for possible ureteral or bladder injury from surgery, Urology is being consulted as detailed above. Plan Thank you for allowing us to participate in this patient's care. Please do not hesitate to contact us with any questions. Time spent for this consultation: 70 minutes. HPI Data of Consult Date/Time: 05/20/22 13:30 Requesting Physician: Dr. Daniel Hooks. Consult Narrative Reason for consult: Medical management. Narrative: This is a previously healthy 36-year-old female who is postoperative day 1 status post diagnostic laparoscopy with adhesiolysis for chronic cyclic pelvic pain whom the hospitalist service has been consulted for help with medical management after she was found to have acute kidney injury on labs after presenting to the ED with complaints of abdominal pain and difficulties urinating. Procedure note and anesthesia record were reviewed. The procedure was performed due to concerns for possible endometriosis though no implants were visualized. There was a large band of scar tissue of the omentum to the lower abdominal wall and left pelvic wall and these areas were lysed. Her surgery was performed under general anesthesia with no immediate complications documented and an estimated blood loss of 5 mL. She had about 15 mL of urine out during the procedure. Blood pressures remained stable throughout with MAPS well above 60. She was unable to urinate in the PACU and was complaining of diffuse abdominal spasms at that time which was attributed to possible bladder spasms. She was told to call or return to the hospital if she was unable to urinate within 6 hours following discharge. She was unable to urinate at home and call the on-call physician and was told that she needed to come to the ER if she was unable to urinate by morning. At about 02:00 she developed sharp, stabbing right-sided flank pain radiating to the right lower quadrant and she came in this morning as she was still unable to urinate. Her pain is worse with deep breath and minimal movement. Tramadol and ibuprofen taken last evening did not help much. Her pain continues to intensify and she reports that her abdomen is now firm and distended. She has not had fever, chills, or sweats. She has h
--- NOTE | 2022-05-20 14:42 | PM.IMHP ---
H&P: HPI History of Present Illness Date/Time: 05/20/22 14:42 Chief Complaint: pelvic pain Narrative: Patient is status post POD1 diagnostic laparoscopy yesterday with FAITH of omental tissue from right lower abdominal wall. Prior to discharge she did notice an acute pain when she went to urinate. She was given Vesicare and then pain improved and with abdominal binder. She started having increase abdominal pain at 2am and difficulty urinating and she went to ED this am. CT showed ascites, increase WBC, elevated creatinine, no ureteral or renal dilation. [facility] Past Medical History Medical History Acid reflux Cyclical pelvic pain Surgical History Surgical History History of 2 sections History of laparotomy (05/19/22) History of laser assisted in situ keratomileusis History of lithotripsy History of spinal surgery Coccygectomy. History of surgical removal of ganglion cyst Left wrist. History of tonsillectomy Family History Family History Mother Cervical cancer Father Diabetes mellitus Social History Social History Social History: Surrogate medical decision maker: Cubagatito Gonzalestt, spouse. Code status: Full code. Smoking status: Never smoker Alcohol intake: never Substance use: never Substance use type: does not use Living arrangements: with family Additional living arrangements comments: Lives with and 2 children in [place]. 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 Spiritual care concerns: No Meds Home Medications and Allergies Home Medications Medication Instructions Recorded Confirmed Type levonorgestrel 21 mcg/24 hours (8 1 device intrauterine ONCE 09/05/19 05/11/22 History yrs) 52 mg intrauterine device (Mirena) Saccharomyces boulardii 250 mg 250 mg PO BID 06/22/21 05/11/22 History capsule (Daily Probiotic (S. boulardii)) cholecalciferol (vitamin D3) 25 25 mcg PO DAILY 06/22/21 05/11/22 History mcg (1,000 unit) capsule cyanocobalamin (vitamin B-12) 1,000 mcg PO DAILY 06/22/21 05/11/22 History 1,000 mcg capsule tramadol 50 mg tablet 50 mg PO Q6H PRN Pain 06/22/21 05/11/22 History cyclobenzaprine 5 mg tablet 5 mg PO TID PRN muscle spasm #30 02/16/22 05/11/22 Rx tabs hydrocodone 5 mg-acetaminophen 325 1 tablet PO Q6H PRN pain #10 tabs 05/19/22 Rx mg tablet Allergies Allergy/AdvReac Type Severity Reaction Status Date / Time adhesive Allergy Unknown RASH Verified 05/20/22 08:27 latex Allergy Unknown Rash Verified 05/20/22 08:27 Vital Signs Vital Signs - 24 hr 05/20/22 08:43 05/20/22 09:56 Temperature 99.1 F 98.8 F Pulse Rate 106 H 103 H Respiratory Rate 28 H 24 H Blood Pressure 157/101 H 128/71 Pulse Oximetry 95 93 Oxygen Delivery Room Air Exam Const: General: uncomfortable Eyes: General: appearance normal, both eyes and all related structures Resp: Effort & Inspection: normal respiratory effort GI: Other: abdomen distended tender diffusely no erythema incisions intact Neuro: General: oriented to person, oriented to place and oriented to time Extrem: General: normal to inspection Psych: Appearance: grossly normal H&P: Results Labs Labs: Short CBC 05/20/22 Range/Units 09:03 WBC 24.7 H (4.5-10.0) K/mm3 Hgb 15.0 (12.0-15.0) g/dL Hct 44.4 (37.0-47.0) % Plt Count 381 H (150-375) k/mm3 [facility] 05/20/22 05/20/22 09:03 11:37 Sodium 133 L 135 L Potassium 4.8 5.2 H Chloride 98 105 Carbon Dioxide 21 L 21 L BUN 28 H 27 H Creatinine 2.50 H 2.50 H Glucose 168 H 132 H Calcium 9.2 8.1 L Liver Function 05/20/22 Range/Units 09:03 Total Bilirubin 0.8 (0.2-1.3) mg/dL AST 24 (14-36) U/L ALT 26 (6-35) U/L
[2022-05-20 16:15] LABS: Complement C3 135 mg/dL (88-165)
[2022-05-20 16:17] LABS: Erythrocyte Sedimentation Rate 21 mm/hr (0-20)
--- NOTE | 2022-05-20 16:17 | ADMGEN ---
This patient, Florencia Gamino, was admitted to IMU Room 201-01. Patient/family oriented to hospital policies and general routines including ID bracelet, bed and alarms, visiting hours, pain management, procedures, bathroom and other care routines, personal items, smoking policy, room service/diet, and visiting hours. Information on how to activate the Rapid Response Team has been discussed. Patient/Family are encouraged to report perceived risks to care and to ask questions if they do not understand what they are told or what they should do.
[2022-05-20 16:18] LABS: Creatine Kinase < 20 U/L (30-135)
[2022-05-20 16:27] LABS: CRP 14.2 mg/dL (<1.0)
[2022-05-20] MEDS: SODIUM CHLORIDE 0.9% IV 1,000 ML 125 ML IV CONT (16:31)
[2022-05-20] MEDS: ACETAMINOPHEN 325 MG TABLET 650 MG PO (16:31)
--- NOTE | 2022-05-20 17:00 | PC.NURSE ---
To OR per [Imani GOMEZ and Ana Red], IV [20 in left AC ]. Report given to [ Ludivina].
--- NOTE | 2022-05-20 17:03 | WPDURCON ---
Assessment and Plan Assessment and plan (1) Pelvic pain: Code(s): R10.2 - Pelvic and perineal pain Status: Acute (2) Acute kidney injury: Code(s): N17.9 - Acute kidney failure, unspecified Status: Acute Assessment and Plan: Abdominal pain/ distension, acute kidney injury and intraperitoneal fluid one day following diagnostic laparoscopy. This is all suggestive of a urine leak either from either a bladder or a ureteral injury. I will plan diagnostic cystoscopy and bilateral retrograde pyelography. I may also do an intraoperative cystogram to identify any possible source for urinary extravasation. I discussed the patient that there we may identify things (such as a ureteral injury or intraperitoneal bladder injury) that would require additional surgery that cannot be performed through the cystoscope and would require either open or robotic repair. We do not have a robotic surgical team available tonight. If such an injuries is identified we will likely defer definitive intervention until tomorrow we can approach things robotically. Urology Consult Note HPI Date Seen: 05/20/22 Requesting Physician: Daniel Hooks MD Primary Care Provider: POWER LINEWORKER PHYSICIAN Consult Narrative Narrative: Florencia Gamino is a 36 year old female, previously unknown to our practice, who is 1 day status post diagnostic laparoscopy with lysis of adhesions. Around 2:03 a.m. she awoke with abdominal and right flank pain. Evaluation in the emergency department shows acute kidney injury in the axial imaging shows a fluid collection in the peritoneal cavity consistent with a probable urine. Patient denies fevers chills or gross hematuria. She has not been able to urinate since early this morning and does not appear to have significant bladder distention on her CT scan. Review of Systems Cardiovascular: Cardiovascular: Denies chest pain, Denies lightheadedness, Denies palpitations and Denies dyspnea Respiratory: Respiratory: Denies dyspnea Gastrointestinal: Gastrointestinal: Reports abdominal pain, Denies diarrhea, Reports nausea and Denies vomiting Genitourinary: Genitourinary: Denies hematuria, Reports urinary frequency and Denies dysuria Endocrine: Endocrine: Denies palpitations PMFSH Past Medical History Medical History Acid reflux Cyclical pelvic pain Surgical History Surgical History History of 2 sections History of laparotomy (05/19/22) History of laser assisted in situ keratomileusis History of lithotripsy History of spinal surgery Coccygectomy. History of surgical removal of ganglion cyst Left wrist. History of tonsillectomy Family History Family History Mother Cervical cancer Father Diabetes mellitus Social History Social History Social History: Surrogate medical decision maker: Cuba Stevenson, spouse. Code status: Full code. Smoking status: Never smoker Alcohol intake: never Substance use: never Substance use type: does not use Living arrangements: with family Additional living arrangements comments: Lives with and 2 children in [place]. 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 Spiritual care concerns: No Meds Home Medications and Allergies Home Medications Medication Instructions Recorded Confirmed Type levonorgestrel 21 mcg/24 hours (8 1 device intrauterine ONCE 09/05/19 05/11/22 History yrs) 52 mg intrauterine device (Mirena) Saccharomyces boulardii 250 mg 250 mg PO BID 06/22/21 05/11/22 History capsule (Daily Probiotic (S. boulardii)) cholecalciferol (vitamin D3) 25 25 mcg PO DAILY 06/22/21 05/11/22 History mcg (1,000 unit) capsule cyanocobalamin (vitamin B-12)
[2022-05-20] MEDS: LACTATED RINGERS 1,000 ML 30 ML IV CONT (17:10)
--- NOTE | 2022-05-20 17:11 | PM.EVENT ---
Event Note Event Note Event Note: Consult received for NEVILLE/ARF. Unable to see patient today as out of room for procedure (taken to OR by Urology as noted by consultation). Will follow-up tomorrow.
--- NOTE | 2022-05-20 17:28 | WPDANESEPP ---
Anes - Eval Pre Procedure Procedure: Operation Date: 05/20/22 17:00 Proposed Procedures p Cysto, RPG, Stone Ext, Stent Placement - Mikael Saunders MD Date/Time: 05/20/22 17:28 Surgeon: Chip Preop Diagnosis: Abd pain Pre Op Diagnosis: postop abdominal pain,acute kidney injury Patient Data Age: 36 Gender: F Height: 1.52 m Weight: 91 kg Last Vital Signs Temp 37.2 C 05/20/22 17:17 Pulse 118 H 05/20/22 17:17 Resp 20 05/20/22 17:17 BP 136/76 05/20/22 17:17 Pulse Ox 92 05/20/22 17:17 O2 Del Method Room Air 05/20/22 17:17 Allergies Allergy/AdvReac Type Severity Reaction Status Date / Time adhesive Allergy Unknown RASH Verified 05/20/22 08:27 latex Allergy Unknown Rash Verified 05/20/22 08:27 Home Medications Medication Instructions Recorded Confirmed Type levonorgestrel 21 mcg/24 hours (8 1 device intrauterine ONCE 09/05/19 05/11/22 History yrs) 52 mg intrauterine device (Mirena) Saccharomyces boulardii 250 mg 250 mg PO BID 06/22/21 05/11/22 History capsule (Daily Probiotic (S. boulardii)) cholecalciferol (vitamin D3) 25 25 mcg PO DAILY 06/22/21 05/11/22 History mcg (1,000 unit) capsule cyanocobalamin (vitamin B-12) 1,000 mcg PO DAILY 06/22/21 05/11/22 History 1,000 mcg capsule tramadol 50 mg tablet 50 mg PO Q6H PRN Pain 06/22/21 05/11/22 History cyclobenzaprine 5 mg tablet 5 mg PO TID PRN muscle spasm #30 02/16/22 05/11/22 Rx tabs hydrocodone 5 mg-acetaminophen 325 1 tablet PO Q6H PRN pain #10 tabs 05/19/22 Rx mg tablet Laboratory Tests 05/20/22 05/20/22 05/20/22 09:03 09:03 09:03 WBC 24.7 K/mm3 H K/mm3 (4.5-10.0) RBC 5.32 M/mm3 M/mm3 (4.2-5.4) Hgb 15.0 g/dL g/dL (12.0-15.0) Hct 44.4 % % (37.0-47.0) MCV 83.5 fl fl (80-100) MCH 28.2 pg pg (26-34) MCHC 33.8 g/dl g/dl (32-36) RDW 13.2 % % (11.5-14.5) Plt Count 381 k/mm3 H k/mm3 (150-375) MPV 10.4 fl fl (7.4-10.4) Immature Gran % (Auto) 0.6 % H % (0-0.5) Neut % (Auto) 88.1 % H % (45.5-73.1) Lymph % (Auto) 6.5 % L % (18.3-44.2) [place] % (Auto) 4.6 % % (2.6-8.5) Eos % (Auto) 0.0 % % (0-4.4) Baso % (Auto) 0.2 % % (0.2-1.2) Lymph # (Auto) 1.61 K/mm3 K/mm3 (0.9-3.2) [place] # (Auto) 1.1 K/mm3 H K/mm3 (0.1-0.6) Eos # (Auto) 0.0 K/mm3 K/mm3 (0-0.3) Baso # (Auto) 0.0 K/mm3 K/mm3 (0.0-0.1) Abs Immat Gran (auto) 0.16 K/mm3 H K/mm3 (0.00-0.031) Absolute Neuts (auto) 21.8 K/mm3 H K/mm3 (1.3-6.7) Absolute Nucleated RBC 0.0 K/mm3 K/mm3 (0.0-0.012) Nucleated RBC % 0.0 % % (0.0-0.2) ESR PT 13.1 Seconds Seconds (11.1-14.7) INR 1.0 APTT 27.1 SECONDS SECONDS (22.3-36.8) Sodium Potassium Chloride Carbon Dioxide Anion Gap BUN Creatinine Estim Creat Clear Calc Estimated GFR Glucose Serum Osmolality Lactic Acid Calcium Total Bilirubin AST ALT Alkaline Phosphatase Total Creatine Kinase C-Reactive Protein Total Protein Albumin Urine Color Yellow (Yellow) Urine Appearance Clear (Clear) Urine pH 5.5 (5.0-9.0) Ur Specific [place] <= 1.005 (1.001-1.035) Urine Protein Negative mg/dL mg/dL (Negative) Urine Glucose (UA) Negative mg/dL mg/dL (Negative) Urine Ketones Negative mg/dL mg/dL (Negative) Ur Blood (Man) 2+ H (Negative) Urine Nitrate Negative (Negative) Urine Bilirubin Negative (Negative) Urine Urobilinogen 0
--- NOTE | 2022-05-20 19:09 | PC.NURSE ---
This patient, Florencia Gamino, was received from [OR ] on 05/20/22 at 1905. Patient/family oriented to unit policies and routines
[2022-05-20 20:59] LABS: Glucose Point of Care 152 mg/dl (65-105)
--- NOTE | 2022-05-20 21:59 | P.OP_ITS ---
Procedure Note - Detailed Date of Procedure 05/20/22 Pre-op Diagnosis postop abdominal pain,acute kidney injury Post-op Diagnosis Other (Injury to bladder dome with intraperitoneal urinary extravasation) Procedure Performed Cystoscopy, bilateral retrograde pyelography, intraoperative cystogram Surgeon Mikael Saunders MD Anesthesia General Findings 1. Normal bilateral retrograde pyelogram 2. Cystoscopy showing an injury in the bladder dome and cystogram showing intraperitoneal extravasation Description of Procedure patient is brought to the operative suite where she has prepped draped in routine sterile fashion while in dorsal lithotomy position after the uneventful induction of a general LMA anesthetic. Cystoscopy is undertaken with a 19 F rigid cystoscope. Urethra and bladder neck were endoscopically normal. The bladder shows an area of injury in the dome but is otherwise without significant findings. Bladder mucosa without hyperemia and there is no intravesical foreign body or neoplasm. She has a single orthotopic ureteral orifice bilaterally. Retrograde pyelography with 8F bulb-tipped catheters is normal on both sides, showing an absence of filling defects obstruction or extravasation. This point I placed an 18 F silicone urethral catheter. [place] cystogram shows intraperitoneal extravasation from the bladder dome and a volume of approximately 300 cc. Catheter is in place to drainage and left indwelling. I had had discussions with the patient and her about findings which may necessitate robotic intervention and are absence of a robotic team in the evening. In light of that I opted to leave the indwelling catheter and plan robotic bladder injury tomorrow. Urine Output 250 Drains Yes Packing No Pathology None sent Complications No immediate complications Condition Stable Disposition PACU
[2022-05-21] VITALS (22 sets, daily range): BP systolic 97–134; BP diastolic 55–79; PULSE 78–107; RESP 16–20; TEMP 36.4–37.2; O2SAT 91–99
[2022-05-21 00:12] LABS: Creatinine Urine 49.4 mg/dL; Total Protein Urine Random 24 mg/dL; Ur Ttl Prot Creatinine Ratio 0.49 mg/mg (0-0.20)
[2022-05-21 00:17] LABS: Potassium Urine Random 21.3 meq/L; Sodium Urine Random 9 meq/L
[2022-05-21] MEDS: HYDROmorphone HCL INJ (*CRX) 1 MG/ML SYR IV PUSH ×5 (00:17→20:15)
[2022-05-21 02:08] LABS: Eosinophil Urine None Seen % (None Seen); Urine Eos QC 2nd Tech Confirmed
[2022-05-21] MEDS: SODIUM CHLORIDE 0.9% IV 1,000 ML 125 ML IV CONT ×3 (02:50→18:35)
[2022-05-21] MEDS: ACETAMINOPHEN 325 MG TABLET 650 MG PO ×3 (02:53→23:20)
[2022-05-21 04:06] LABS: Basophils Percent Auto 0.1 % (0.2-1.2); Hematocrit 37.2 % (37.0-47.0); Immature Granulocyte Absolute 0.06 K/mm3 (0.00-0.031); Immature Granulocyte Percent A 0.4 % (0-0.5); Lymphocytes Absolute Auto 1.17 K/mm3 (0.9-3.2); Lymphocytes Percent Auto 8.1 % (18.3-44.2); Mean Corpuscular HGB Conc 32.3 g/dl (32-36); Mean Corpuscular Hemoglobin 28.4 pg (26-34); Mean Corpuscular Volume 88.2 fl (80-100); Mean Platelet Volume 10.3 fl (7.4-10.4); Monocytes Absolute Auto 0.8 K/mm3 (0.1-0.6); Monocytes Percent Auto 5.7 % (2.6-8.5); Neutrophils Absolute Auto 12.3 K/mm3 (1.3-6.7); Neutrophils Percent Auto 85.7 % (45.5-73.1); Platelet Count Result 245 k/mm3 (150-375); Red Blood Count 4.22 M/mm3 (4.2-5.4); Red Cell Distribution Width 13.6 % (11.5-14.5); White Blood Count 14.4 K/mm3 (4.5-10.0)
[2022-05-21 04:20] LABS: Alanine Aminotransferase 16 U/L (6-35); Albumin Level 3.5 g/dL (3.5-5.1); Alkaline Phosphatase 58 U/L (38-126); Anion Gap 6 mmol/L (8-16); Aspartate Amino Transferase 13 U/L (14-36); Bilirubin,Total 0.5 mg/dL (0.2-1.3); Blood Urea Nitrogen 14 mg/dL (7-17); Calcium 7.8 mg/dL (8.4-10.2); Carbon Dioxide 23 mmol/L (22-30); Chloride 109 mmol/L (98-107); Estimated CRCL calculation 73 ml/min; Estimated Glomerular Filt Rate > 60; Glucose 122 mg/dL (65-110); Magnesium 2.2 mg/dL (1.6-2.3); Phosphorus 3.1 mg/dL (2.5-4.5); Potassium 4.2 mmol/L (3.4-5.0); Sodium 138 mmol/L (137-145)
--- NOTE | 2022-05-21 07:47 | PM.IMPN ---
Progress Note: A&P Assessment and Plan (1) Sepsis: Code(s): A41.9 - Sepsis, unspecified organism Status: Acute Assessment and Plan: Patient meets sepsis criteria with tachycardia, tachypnea, leukocytosis, and elevated lactic acid level. Lactic acid has improved with IV fluid rehydration. [place] related to peritonitis. Her blood pressures have remained stable. Blood cultures NGTD. (2) Perforation of bladder during operative procedure: Code(s): N99.72 - Accidental puncture and laceration of a genitourinary system organ or structure during other procedure Status: Acute Assessment and Plan: Patient has experienced diffuse abdominal pain not long after a diagnostic laparoscopy with adhesiolysis on 05/19. -CT A/P showing moderate amount of ascites and right retroperitoneal fluid/stranding. -Renal US normal with moderate ascites. -Retrograde pyelogram okay but cystoscopy showing an injury in the bladder dome with intraperitoneal extravasation. -Robotic assisted repair of a bladder injury 05/21 Patient has tolerated the procedure well. Continue pain control. Out of bed. Appreciate Urology input (3) Acute kidney injury: Code(s): N17.9 - Acute kidney failure, unspecified Status: Acute Assessment and Plan: Consider secondary to sepsis but more likely related to urine extravasation into the abd cavity resulting in elevaed Cr. Cr normal now. Continue empiric abx. Nephrology was consulted and their input. (4) Abdominal pain: Code(s): R10.9 - Unspecified abdominal pain Status: Acute Assessment and Plan: As above Subjective Date/time seen: 05/21/22 07:47 Interval history: 36yo female with recent diagnostic laparoscopy with adhesiolysis for chronic cyclic pelvic pain whom the hospitalist service has been consulted for help with medical management after she was found to have acute kidney injury after presenting to the ED with complaints of abdominal pain and difficulties urinating. Patient is back from surgery. Pain reasonablly well controlled. No CP or SOB. ABle to take deeper breaths now. Exam Narrative: AF 97.5 98/58 79 16 99% ra Gen - NARD Chest - clear anteriroly and in the flanks CV - RRR S1/S2. Tele showing no significant dysrhythmias Abd - soft, hypoactive BS, diffusely tenderness. Drain in place with serosang fluid in tubing. multiple small abd incisions dry and intact Ext - No pedal edema Psych - Nml mood and affect Skin - Warm and dry Objective Data Vital Signs Vital Signs: Vital Signs - 24 hr 05/20/22 08:43 05/20/22 09:56 05/20/22 17:17 Temperature 99.1 F 98.8 F 98.9 F Pulse Rate 106 H 103 H 118 H Respiratory Rate 28 H 24 H 20 Blood Pressure 157/101 H 128/71 136/76 Pulse Oximetry 95 93 92 Oxygen Delivery Room Air Room Air Oxygen Flow Rate 05/20/22 16:23 05/20/22 16:40 05/20/22 18:15 Temperature 97.5 F L 98.9 F Pulse Rate 113 H 109 H Respiratory Rate 18 15 Blood Pressure 150/86 H 122/75 Pulse Oximetry 94 99 Oxygen Delivery Room Air Simple Face Mask Oxygen Flow Rate 6 05/20/22 18:30 05/20/22 18:45 05/20/22 19:05 Temperature 98.2 F Pulse Rate 102 H 105 H 108 H Respiratory Rate 18 15 18 Blood Pressure 134/62 124/65 137/68 Pulse Oximetry 98 92 91 Oxygen Delivery Simple Face Mask Room Air Oxygen Flow Rate 6 05/20/22 20:00 05/20/22 20:00 05/20/22 21:30 Temperature 97.9 F Pulse Rate 97 107 H Respiratory Rate 20 Blood Pressure 124/70 Pulse Oximetry 90 Oxygen Delivery Room Air Oxygen Flow Rate 05/20/22 22:00 05/20/22 23:51 05/21/22 00:16 Temperature 98.1 F Pulse Rate 90 90 93 Respiratory Rate 20 20 Blood Pressure 124/72 Pulse Oximetry 90 92 Oxygen Delivery Room Air Oxygen Flow Rate 05/21/22 00:00 05/21/22 02:00 05/21/22 04:00 Temperature Pulse Rate 93 87 87 Respiratory Rate Blood Pressure Pulse Oximetry Oxygen Delivery Oxygen Andrew
[2022-05-21] MEDS: ONDANSETRON INJ 4 MG/2 ML VIAL IV PUSH ×3 (09:11→20:15)
--- NOTE | 2022-05-21 10:20 | PM.GYNPNOP ---
TILE LAYER DRAINAGE - A/P Assessment and plan (1) History of cystostomy: Code(s): Z98.890 - Other specified postprocedural states Status: Acute Assessment and Plan: Incidental cystotomy s/p lap FAITH. Scheduled for repair today. Creatine normal. Urology consult appreciated. Postoperative Procedures: Procedures Operation Date: 05/20/22 17:00 Actual Procedure Side Surgeon p Cystoscopy, bilateral retrograde pyleograms, cystogram Mikael Saunders MD Operation Date: 05/21/22 14:00 <No data on this case meets the specified criteria> Time Spent With Patient Time: Total time spent is greater than 50% in coordination of care (as documented) at patient's floor/unit and/or counseling patient: Time with patient: less than 15 minutes TILE LAYER DRAINAGE- PN:Yessica Post-Op Subjective Date/time seen: 05/21/22 10:20 Interval history: She states pain somewhat better. Has some upper chest congestion. No SOB. Exam Const: General: no acute distress Eyes: General: appearance normal, both eyes and all related structures Resp: Effort & Inspection: normal respiratory effort GI: Other: less distended, tender no erythema Neuro: General: oriented to person, oriented to place and oriented to time Extrem: General: normal to inspection and no calf tenderness TILE LAYER DRAINAGE - PN: Obj Data Vital Signs Vital Signs: Vital Signs - 24 hr 05/20/22 17:17 05/20/22 16:23 05/20/22 16:40 Temperature 98.9 F 97.5 F L Pulse Rate 118 H 113 H Respiratory Rate 20 18 Blood Pressure 136/76 150/86 H Pulse Oximetry 92 94 Oxygen Delivery Room Air Room Air Oxygen Flow Rate 05/20/22 18:15 05/20/22 18:30 05/20/22 18:45 Temperature 98.9 F Pulse Rate 109 H 102 H 105 H Respiratory Rate 15 18 15 Blood Pressure 122/75 134/62 124/65 Pulse Oximetry 99 98 92 Oxygen Delivery Simple Face Mask Simple Face Mask Room Air Oxygen Flow Rate 6 6 05/20/22 19:05 05/20/22 20:00 05/20/22 20:00 Temperature 98.2 F Pulse Rate 108 H 97 Respiratory Rate 18 Blood Pressure 137/68 Pulse Oximetry 91 Oxygen Delivery Room Air Oxygen Flow Rate 05/20/22 21:30 05/20/22 22:00 05/20/22 23:51 Temperature 97.9 F Pulse Rate 107 H 90 90 Respiratory Rate 20 20 Blood Pressure 124/70 Pulse Oximetry 90 90 Oxygen Delivery Room Air Oxygen Flow Rate 05/21/22 00:16 05/21/22 00:00 05/21/22 02:00 Temperature 98.1 F Pulse Rate 93 93 87 Respiratory Rate 20 Blood Pressure 124/72 Pulse Oximetry 92 Oxygen Delivery Oxygen Flow Rate 05/21/22 04:00 05/21/22 04:00 05/21/22 04:36 Temperature 98.1 F Pulse Rate 87 87 88 Respiratory Rate 20 20 Blood Pressure 126/71 Pulse Oximetry 92 93 Oxygen Delivery Room Air Oxygen Flow Rate 05/21/22 06:00 05/21/22 08:00 05/21/22 09:50 Temperature 97.6 F Pulse Rate 83 99 Respiratory Rate 16 Blood Pressure 132/68 Pulse Oximetry 93 91 Oxygen Delivery Room Air Oxygen Flow Rate Intake/Output Intake/Output: Intake & Output 05/18/22 05/19/22 05/20/22 05/21/22 23:59 23:59 23:59 23:59 Intake Total 3100 1700 Output Total 740 3700 Balance 2360 -2000 Meds/Results Medications: Active Medications Generic Name Dose Route Start Last Admin Trade Name Freq PRN Reason Stop Dose Admin Acetaminophen 650 mg 05/20/22 14:16 05/21/22 09:06 Acetaminophen 325 Mg Tablet PO 650 mg Q6H PRN Administration Mild Pain (1-3) or Fever Hydromorphone HCl 1 mg 05/20/22 11:51 05/21/22 09:05 Hydromorphone Hcl Inj (*Crx) 1 Mg/Ml Syr IV PUSH 1 mg Q4H PRN Administration Pain Rated 7-10 Sodium Chloride 1,000 mls @ 125 mls/hr 05/20/22 11:55 05/21/22 02:50 Normal Saline Iv IV CONT 125 mls/hr .Q8H VINAY Administration Piperacillin Sod/Tazobactam Sod 2.25 gm in 50 mls @ 100 mls/hr 05/21/22 00:00 05/21/22 06:21 Zosyn 2.25 Gm/D5w 50 Ml IVPB Infused Q6HR VINAY Infusion Ondansetron HCl 4 mg 05/20/22 11:51 05/21/22 09:11
[2022-05-21] MEDS: LACTATED RINGERS 1,000 ML 30 ML IV CONT ×2 (13:00→16:16)
--- NOTE | 2022-05-21 13:33 | WPDANESEPPF ---
Anes - Initial Pre Proc Eval Procedure: Operation Date: 05/20/22 17:00 Proposed Procedures p Cysto, RPG, Stone Ext, Stent Placement - Mikael Saunders MD Operation Date: 05/21/22 14:00 Proposed Procedures p Robotic Repair Of Bladder Injury - Mikael Saunders MD Date/Time: 05/21/22 13:33 Surgeon: Daniel Hooks MD Pre Op Diagnosis: postop abdominal pain,acute kidney injury Patient Data Age: 36 Gender: F Height: 1.63 m Weight: 90.3 kg Last Vital Signs Temp 98.9 F 05/21/22 11:16 Pulse 93 05/21/22 12:00 Resp 16 05/21/22 11:16 BP 121/65 05/21/22 11:16 Pulse Ox 95 05/21/22 11:16 O2 Del Method Room Air 05/21/22 09:50 O2 Flow Rate 6 05/20/22 18:30 Allergies Allergy/AdvReac Type Severity Reaction Status Date / Time adhesive Allergy Unknown RASH Verified 05/21/22 13:28 latex Allergy Unknown Rash Verified 05/21/22 13:28 Home Medications Medication Instructions Recorded Confirmed Type levonorgestrel 21 mcg/24 hours (8 1 device intrauterine ONCE 09/05/19 05/20/22 History yrs) 52 mg intrauterine device (Mirena) Saccharomyces boulardii 250 mg 250 mg PO BID 06/22/21 05/20/22 History capsule (Daily Probiotic (S. boulardii)) cholecalciferol (vitamin D3) 25 25 mcg PO DAILY 06/22/21 05/20/22 History mcg (1,000 unit) capsule cyanocobalamin (vitamin B-12) 1,000 mcg PO DAILY 06/22/21 05/20/22 History 1,000 mcg capsule tramadol 50 mg tablet 50 mg PO Q6H PRN Pain 06/22/21 05/20/22 History cyclobenzaprine 5 mg tablet 5 mg PO TID PRN muscle spasm #30 02/16/22 05/20/22 Rx tabs hydrocodone 5 mg-acetaminophen 325 1 tablet PO Q6H PRN pain #10 tabs 05/19/22 05/20/22 Rx mg tablet Laboratory Tests 05/20/22 05/20/22 05/20/22 09:03 09:03 09:03 WBC RBC Hgb Hct MCV MCH MCHC RDW Plt Count MPV Immature Gran % (Auto) Neut % (Auto) Lymph % (Auto) [place] % (Auto) Eos % (Auto) Baso % (Auto) Lymph # (Auto) [place] # (Auto) Eos # (Auto) Baso # (Auto) Abs Immat Gran (auto) Absolute Neuts (auto) Absolute Nucleated RBC Nucleated RBC % ESR Sodium Potassium Chloride Carbon Dioxide Anion Gap BUN Creatinine Estim Creat Clear Calc Estimated GFR Glucose POC Capillary Glucose Serum Osmolality Calcium Phosphorus Magnesium Total Bilirubin AST ALT Alkaline Phosphatase Total Creatine Kinase C-Reactive Protein Total Protein Albumin Urine Eosinophils None seen % % (None Seen) Urine Osmolality Pending Ur Random Creatinine Pending U Random Total Protein 24 mg/dL mg/dL Ur Random Sodium 9 meq/L meq/L Ur Random Potassium 21.3 meq/L meq/L Ur Random Chloride Pending U Random Chloride/Creat Pending Urine Creatinine 49.4 mg/dL mg/dL Protein/Creat Ratio 2 0.49 mg/mg H mg/mg (0-0.20) Complement C3 Complement C4 Tot Complement (CH50) 05/20/22 05/20/22 05/20/22 15:43 15:43 15:43 WBC RBC Hgb Hct MCV MCH MCHC RDW Plt Count MPV Immature Gran % (Auto) Neut % (Auto) Lymph % (Auto) [place] % (Auto) Eos % (Auto) Baso % (Auto) Lymph # (Auto) [place] # (Auto)
--- NOTE | 2022-05-21 14:18 | WPDHPUPDATE1 ---
History and Physical Update Update Date/Time: 05/21/22 14:18 History and Physical has been reviewed, including an updated exam of the patient. There are NO changes in the patient's condition. Risks, benefits, and alternatives have been discussed and questions answered. Patient agrees to proceed with procedure.
--- NOTE | 2022-05-21 14:39 | WPDANESPN ---
Anes - Prog Note Post-Op Date/Time: 05/21/22 14:39 Vital Signs: Last Vital Signs Temp 37.1 C 05/21/22 12:49 Pulse 107 H 05/21/22 12:49 Resp 16 05/21/22 12:49 BP 134/72 05/21/22 12:49 Pulse Ox 93 05/21/22 12:49 O2 Del Method Room Air 05/21/22 12:49 O2 Flow Rate 6 05/20/22 18:30 Pain Score (VAS): 0 I/O: Intake & Output 05/20/22 05/21/22 05/21/22 23:59 07:59 15:59 Intake Total 100 1700 1000 Output Total 490 3700 450 Balance -390 -2000 550 Laboratory Tests 05/21/22 03:28 05/21/22 03:28 05/20/22 05/20/22 05/20/22 09:03 09:03 09:03 WBC RBC Hgb Hct MCV MCH MCHC RDW Plt Count MPV Immature Gran % (Auto) Neut % (Auto) Lymph % (Auto) [place] % (Auto) Eos % (Auto) Baso % (Auto) Lymph # (Auto) [place] # (Auto) Eos # (Auto) Baso # (Auto) Abs Immat Gran (auto) Absolute Neuts (auto) Absolute Nucleated RBC Nucleated RBC % ESR Sodium Potassium Chloride Carbon Dioxide Anion Gap BUN Creatinine Estim Creat Clear Calc Estimated GFR Glucose POC Capillary Glucose Serum Osmolality Calcium Phosphorus Magnesium Total Bilirubin AST ALT Alkaline Phosphatase Total Creatine Kinase C-Reactive Protein Total Protein Albumin Urine Eosinophils None seen Urine Osmolality Pending Ur Random Creatinine Pending U Random Total Protein 24 Ur Random Sodium 9 Ur Random Potassium 21.3 Ur Random Chloride Pending U Random Chloride/Creat Pending Urine Creatinine 49.4 Protein/Creat Ratio 2 0.49 H Complement C3 Complement C4 Tot Complement (CH50) 05/20/22 05/20/22 05/20/22 15:43 15:43 15:43 WBC RBC Hgb Hct MCV MCH MCHC RDW Plt Count MPV Immature Gran % (Auto) Neut % (Auto) Lymph % (Auto) [place] % (Auto) Eos % (Auto) Baso % (Auto) Lymph # (Auto) [place] # (Auto) Eos # (Auto) Baso # (Auto) Abs Immat Gran (auto) Absolute Neuts (auto) Absolute Nucleated RBC Nucleated RBC % ESR 21 H Sodium Potassium Chloride Carbon Dioxide Anion Gap BUN Creatinine Estim Creat Clear Calc Estimated GFR Glucose POC Capillary Glucose Serum Osmolality Pending Calcium Phosphorus Magnesium Total Bilirubin AST ALT Alkaline Phosphatase Total Creatine Kinase < 20 L C-Reactive Protein 14.2 H Total Protein Albumin Urine Eosinophils Urine Osmolality Ur Random Creatinine U Random Total Protein Ur Random Sodium Ur Random Potassium Ur Random Chloride U Random Chloride/Creat Urine Creatinine Protein/Creat Ratio 2 Complement C3 Complement C4 Tot Complement (CH50) 05/20/22 05/20/22 05/20/22 15:43 15:43 20:24 WBC RBC Hgb Hct MCV MCH MCHC RDW Plt Count MPV Immature Gran % (Auto) Neut % (Auto) Lymph % (Auto) [place] % (Auto) Eos % (Auto) Baso % (Auto) Lymph # (Auto) [place] # (Auto) Eos # (Auto) Baso # (Auto) Abs Immat Gran (auto) Absolute Neuts (auto) Absolute Nucleated RBC Nucleated RBC % ESR Sodium Potassium Chloride Carbon Dioxide Anion Gap BUN Creatinine Estim Creat Clear Calc Estimated GFR Glucose POC Capillary Glucose 152 H Serum Osmolality Calcium Phosphorus Magnesium Total Bilirubin AST ALT Alkaline Phosphatase Total Creatine Kinase C-Reactive Protein Total Protein Albumin Urine Eosinophils Urine Osmolality Ur Random Creatinine U Random Total Protein Ur Random Sodium Ur Random Potassium Ur Random Chloride U Random Chloride/Creat Urine Creatinine Protein/Creat Ratio 2 Complement C3 135 Complement C4 37.8 Tot Compleme
--- NOTE | 2022-05-21 16:50 | P.OP_ITS ---
Procedure Note - Detailed Date of Procedure 05/21/22 Pre-op Diagnosis Bladder injury with intraperitoneal urinary extravasation Post-op Diagnosis Same Procedure Performed Robotic assisted repair of a bladder injury Surgeon Mikael Saunders MD Anesthesia General Description of Procedure patient brought the operative suite received prepped draped in routine sterile fashion while in dorsal lithotomy position. Robotic trocars were placed at the site of her recent trocar placement for diagnostic laparoscopy. A camera port is placed at the supraumbilical incision. Two robotic trocars were placed proximally 10 cm laterally to that and a 4th, new trocar site is placed midway between the camera and the left trocar site. Inspection of the abdomen and pelvis was undertaken. There was a moderate amount of urinary ascites which is evacuated using the suction device. The patient was placed in a 20 degree Trendelenburg position which allows for easy visualization of the dome of the bladder. I can identify the cystotomy. We confirmed by filling her bladder with 50cc of indigo stained saline. Using a running 2-0 Vicryl I closed the cystotomy site in 2 layers, 1st in the mucosa itself followed by an imbricating layer of bladder adventitia. We then flattened the patient and I was able to secure omentum over the site of the cystotomy using interrupted 2-0 Vicryl. After closing just the 1st mucosal area refilled her bladder with 150 cc and saw no signs of extravasation. I placed a 10 mm CANDELARIO drain in the pelvis and secured with a 3-0 nylon. Trocars removed and the incisions were closed with 4- 0 Vicryl subcuticular. Blood loss was approximately 5 cc. Estimated Blood Loss -5.0 Urine Output 250 Drains Yes Pathology None sent Complications No immediate complications Condition Stable Disposition PACU
[2022-05-21] MEDS: fentaNYL CITRATE INJ (*CRX) 100 MCG/2 ML VIAL 25 MCG IV PUSH ×2 (16:56→16:59)
[2022-05-22] MEDS: ONDANSETRON INJ 4 MG/2 ML VIAL IV PUSH ×2 (00:21→09:26)
[2022-05-22] MEDS: HYDROmorphone HCL INJ (*CRX) 1 MG/ML SYR IV PUSH ×6 (00:21→21:15)
[2022-05-22] MEDS: SODIUM CHLORIDE 0.9% IV 1,000 ML 125 ML IV CONT ×2 (00:32→09:18)
[2022-05-22] MEDS: ACETAMINOPHEN 325 MG TABLET 650 MG PO ×4 (03:34→22:45)
[2022-05-22 03:54] VITALS: BP 108/57; PULSE 81; RESP 20; TEMP 36.4; O2SAT 98
[2022-05-22 06:11] LABS: Basophils Percent Auto 0.3 % (0.2-1.2); Eosinophils Percent Auto 0.3 % (0-4.4); Hematocrit 31.7 % (37.0-47.0); Immature Granulocyte Absolute 0.04 K/mm3 (0.00-0.031); Immature Granulocyte Percent A 0.4 % (0-0.5); Lymphocytes Absolute Auto 2.12 K/mm3 (0.9-3.2); Lymphocytes Percent Auto 23.3 % (18.3-44.2); Mean Corpuscular HGB Conc 31.5 g/dl (32-36); Mean Corpuscular Volume 88.8 fl (80-100); Mean Platelet Volume 10.3 fl (7.4-10.4); Monocytes Absolute Auto 0.7 K/mm3 (0.1-0.6); Monocytes Percent Auto 7.6 % (2.6-8.5); Neutrophils Absolute Auto 6.2 K/mm3 (1.3-6.7); Neutrophils Percent Auto 68.1 % (45.5-73.1); Platelet Count Result 209 k/mm3 (150-375); Red Blood Count 3.57 M/mm3 (4.2-5.4); Red Cell Distribution Width 13.8 % (11.5-14.5); White Blood Count 9.1 K/mm3 (4.5-10.0)
[2022-05-22 06:27] LABS: Albumin Level 3.1 g/dL (3.5-5.1); Anion Gap 3 mmol/L (8-16); Blood Urea Nitrogen 10 mg/dL (7-17); Calcium 7.4 mg/dL (8.4-10.2); Carbon Dioxide 27 mmol/L (22-30); Chloride 104 mmol/L (98-107); Estimated CRCL calculation 118 ml/min; Estimated Glomerular Filt Rate > 60; Glucose 91 mg/dL (65-110); Magnesium 2.1 mg/dL (1.6-2.3); Phosphorus 2.8 mg/dL (2.5-4.5); Potassium 3.8 mmol/L (3.4-5.0); Sodium 134 mmol/L (137-145)
[2022-05-22 08:00] VITALS: BP 112/57; PULSE 79; RESP 24; TEMP 36.7; O2SAT 93
--- NOTE | 2022-05-22 10:05 | PM.GYNPNOP ---
SOLVENT STATION ATTENDANT - A/P Postoperative Procedures: Procedures Operation Date: 05/20/22 17:00 Actual Procedure Side Surgeon p Cystoscopy, bilateral retrograde pyleograms, cystogram Mikael Saunders MD Operation Date: 05/21/22 14:00 Actual Procedure Side Surgeon p Robotic Repair Of Bladder Injury, Cystoscopy Not Applicable Mikael Saunders MD Postoperative day: 1 Postoperative status: doing well and other (decent ISAÍAS output in last 12 hours. ) Postoperative plan: other (Per Dr. Callejas, nilson for dc home with isaías and gilman. Plan septra DS BID x 5 days and Ditropan 5 mg TID PRN spasm. Awaiting hospitalist ok for dc. ) Time Spent With Patient Time: Total time spent is greater than 50% in coordination of care (as documented) at patient's floor/unit and/or counseling patient: Time with patient: less than 15 minutes SOLVENT STATION ATTENDANT- PN:Subj Post-Op Subjective Date/time seen: 05/22/22 10:05 Subjective: patient reports feeling better, patient has no complaints and pain is well controlled Exam Const: General: comfortable and no acute distress GI: GI Palp: Yes abdominal tenderness (appropriate post op) SOLVENT STATION ATTENDANT - PN: Obj Data Vital Signs Vital Signs: Vital Signs - 24 hr 05/21/22 10:33 05/21/22 11:16 05/21/22 12:00 Temperature 98.9 F Pulse Rate 98 97 93 Respiratory Rate 16 Blood Pressure 121/65 Pulse Oximetry 95 Oxygen Delivery Oxygen Flow Rate 05/21/22 12:49 05/21/22 16:16 05/21/22 16:30 Temperature 98.8 F 97.5 F L Pulse Rate 107 H 93 79 Respiratory Rate 16 20 16 Blood Pressure 134/72 99/79 L 98/58 L Pulse Oximetry 93 96 99 Oxygen Delivery Room Air Simple Face Mask Simple Face Mask Oxygen Flow Rate 8 8 05/21/22 16:45 05/21/22 17:00 05/21/22 17:15 Temperature Pulse Rate 85 78 86 Respiratory Rate 20 18 20 Blood Pressure 107/63 102/67 97/55 L Pulse Oximetry 98 94 95 Oxygen Delivery Simple Face Mask Nasal Cannula Nasal Cannula Oxygen Flow Rate 8 2 2 05/21/22 17:30 05/21/22 18:09 05/21/22 18:21 Temperature 97.6 F Pulse Rate 78 96 Respiratory Rate 16 18 Blood Pressure 102/57 L 114/67 Pulse Oximetry 94 96 97 Oxygen Delivery Nasal Cannula Nasal Cannula Oxygen Flow Rate 2 2 05/21/22 20:00 05/21/22 20:37 05/21/22 23:36 Temperature 97.5 F L Pulse Rate 93 Respiratory Rate 20 Blood Pressure 112/63 Pulse Oximetry 97 97 Oxygen Delivery Nasal Cannula Room Air Oxygen Flow Rate 2 05/22/22 03:54 05/22/22 08:00 05/22/22 08:00 Temperature 97.6 F 98.0 F Pulse Rate 81 79 79 Respiratory Rate 20 24 H 24 H Blood Pressure 108/57 L 112/57 L Pulse Oximetry 98 93 93 Oxygen Delivery Room Air Oxygen Flow Rate Intake/Output Intake/Output: Intake & Output 05/19/22 05/20/22 05/21/22 05/22/22 23:59 23:59 23:59 23:59 Intake Total 3100 3000 2390 Output Total 740 6534 765 Balance 3574 -4364 1623 Meds/Results Medications: Active Medications Generic Name Dose Route Start Last Admin Trade Name Freq PRN Reason Stop Dose Admin Acetaminophen 650 mg 05/20/22 14:16 05/22/22 03:34 Acetaminophen 325 Mg Tablet PO 650 mg Q6H PRN Administration Mild Pain (1-3) or Fever Hydromorphone HCl 1 mg 05/20/22 11:51 05/22/22 09:17 Hydromorphone Hcl Inj (*Crx) 1 Mg/Ml Syr IV PUSH 1 mg Q4H PRN Administration Pain Rated 7-10 Sodium Chloride 1,000 mls @ 125 mls/hr 05/20/22 11:55 05/22/22 09:18 Normal Saline Iv IV CONT 125 mls/hr .Q8H VINAY Administration Piperacillin Sod/Tazobactam Sod 2.25 gm in 50 mls @ 100 mls/hr 05/21/22 00:00 05/22/22 07:21 Zosyn 2.25 Gm/D5w 50 Ml IVPB 0 mls/hr Q6HR VINAY Infusion Ondansetron HCl 4 mg 05/20/22 11:51 05/22/22 09:26 Ondansetron Inj 4 Mg/2 Ml Vial IV PUSH 4 mg Q4H PRN Administration Nausea Radiology Results: ITS Impressions Abdomen/Pelvis CT 05/20/22 10:32 IMPRESSION: 1. Nonspecific moderate amount of simple fluid attenuation ascites scattered throughout the abdomen and pelvis a
--- NOTE | 2022-05-22 12:32 | PC.NURSE ---
This patient, Florencia Gamino, was transferred to [[id number] ] on 05/22/22 at 1155. Personal belongings sent with patient. Report given to [Karin GOMEZ ]. Appropriate documentation sent with patient.
--- NOTE | 2022-05-22 12:34 | PC.NURSE ---
This patient, Florencia Gamino, was received from IMU on 05/22/22 at 1155. Report received from PATRICIA Ramos. Patient/family oriented to unit policies and routines
--- NOTE | 2022-05-22 14:35 | P.PNAN_ITS ---
Anes - Prog Note Post-Op Date/Time: 05/22/22 14:35 Cardiovascular status: normal Respiratory status: normal Airway patency: baseline Mental status: baseline Post-Op hydration status: normal Vital Signs: Last Vital Signs Temp 36.7 C 05/22/22 08:00 Pulse 79 05/22/22 08:00 Resp 24 H 05/22/22 08:00 BP 112/57 L 05/22/22 08:00 Pulse Ox 93 05/22/22 08:00 O2 Del Method Room Air 05/22/22 08:00 O2 Flow Rate 2 05/21/22 20:00 Pain Score (VAS): 06/11 I/O: Intake & Output 05/21/22 05/22/22 05/22/22 23:59 07:59 15:59 Intake Total 250 1664 826 Output Total 2384 250 515 Balance -2134 1414 311 Laboratory Tests 05/22/22 05:21 05/22/22 05:21 05/22/22 05/22/22 05:21 05:21 WBC 9.1 RBC 3.57 L Hgb 10.0 L Hct 31.7 L MCV 88.8 MCH 28.0 MCHC 31.5 L RDW 13.8 Plt Count 209 MPV 10.3 Immature Gran % (Auto) 0.4 Neut % (Auto) 68.1 Lymph % (Auto) 23.3 [place] % (Auto) 7.6 Eos % (Auto) 0.3 Baso % (Auto) 0.3 Lymph # (Auto) 2.12 [place] # (Auto) 0.7 H Eos # (Auto) 0.0 Baso # (Auto) 0.0 Abs Immat Gran (auto) 0.04 H Absolute Neuts (auto) 6.2 Absolute Nucleated RBC 0.0 Nucleated RBC % 0.0 Sodium 134 L Potassium 3.8 Chloride 104 Carbon Dioxide 27 Anion Gap 3 L BUN 10 Creatinine 0.60 L Estim Creat Clear Calc 118 Estimated GFR > 60 Glucose 91 Calcium 7.4 L Phosphorus 2.8 Magnesium 2.1 Albumin 3.1 L Microbiology 05/20/22 09:03 Urine Catheterized Urine Culture - Final Post-procedural complaints: none Patient Feedback: Patient satisfied with anesthetic care.
--- NOTE | 2022-05-22 14:39 | WPDUROPN2 ---
Progress Note: A&P Assessment and Plan (1) Perforation of bladder during operative procedure: Code(s): N99.72 - Accidental puncture and laceration of a genitourinary system organ or structure during other procedure Status: Acute Assessment and Plan: Continue with CANDELARIO and Cavazos catheter at this point time. Patient needs to increase ambulation. Patient will hold off on discharged and be re-evaluated in the morning. Hopefully CANDELARIO drainage will decrease further neck be removed prior to patient's discharge. Patient will be discharged home with Cavazos catheter with a catheter cystogram scheduled at 7-10 days Subjective Subjective Date/Time Seen: 05/22/22 14:39 Post Op day: 1 (Robotic repair of incidental cystotomy) Interval history: Patient is doing well overall however has not been ambulating and has not been passing any flatus. Patient still feels somewhat weak. Review of Systems Review of Systems: All systems reviewed & are unremarkable except as noted in HPI and below Exam Const: General: cooperative Resp: Effort & Inspection: normal respiratory effort Cardio: Rate: regular rate Rhythm: regular rhythm GI: Inspection: non-distended GI Palp: Yes Soft to palpation Urinary Catheter: Urinary Catheter: patent and draining and urine pink Objective Data Vital Signs Vital Signs: Vital Signs - 24 hr 05/21/22 16:16 05/21/22 16:30 05/21/22 16:45 Temperature 36.4 C L Pulse Rate 93 79 85 Respiratory Rate 20 16 20 Blood Pressure 99/79 L 98/58 L 107/63 Pulse Oximetry 96 99 98 Oxygen Delivery Simple Face Mask Simple Face Mask Simple Face Mask Oxygen Flow Rate 8 8 8 05/21/22 17:00 05/21/22 17:15 05/21/22 17:30 Temperature Pulse Rate 78 86 78 Respiratory Rate 18 20 16 Blood Pressure 102/67 97/55 L 102/57 L Pulse Oximetry 94 95 94 Oxygen Delivery Nasal Cannula Nasal Cannula Nasal Cannula Oxygen Flow Rate 2 2 2 05/21/22 18:09 05/21/22 18:21 05/21/22 20:00 Temperature 36.4 C Pulse Rate 96 Respiratory Rate 18 Blood Pressure 114/67 Pulse Oximetry 96 97 97 Oxygen Delivery Nasal Cannula Nasal Cannula Oxygen Flow Rate 2 2 05/21/22 20:37 05/21/22 23:36 05/22/22 03:54 Temperature 36.4 C L 36.4 C Pulse Rate 93 81 Respiratory Rate 20 20 Blood Pressure 112/63 108/57 L Pulse Oximetry 97 98 Oxygen Delivery Room Air Oxygen Flow Rate 05/22/22 08:00 05/22/22 08:00 Temperature 36.7 C Pulse Rate 79 79 Respiratory Rate 24 H 24 H Blood Pressure 112/57 L Pulse Oximetry 93 93 Oxygen Delivery Room Air Oxygen Flow Rate Intake/Output Intake/Output: Intake & Output 05/19/22 05/20/22 05/21/22 05/22/22 23:59 23:59 23:59 23:59 Intake Total 3100 3000 2490 Output Total 740 6534 765 Balance 3789 -4456 8610 Meds/Results Medications: Active Medications Generic Name Dose Route Start Last Admin Trade Name Freq PRN Reason Stop Dose Admin Acetaminophen 650 mg 05/20/22 14:16 05/22/22 10:49 Acetaminophen 325 Mg Tablet PO 650 mg Q6H PRN Administration Mild Pain (1-3) or Fever Hydromorphone HCl 1 mg 05/20/22 11:51 05/22/22 13:10 Hydromorphone Hcl Inj (*Crx) 1 Mg/Ml Syr IV PUSH 1 mg Q4H PRN Administration Pain Rated 7-10 Sodium Chloride 1,000 mls @ 125 mls/hr 05/20/22 11:55 05/22/22 09:18 Normal Saline Iv IV CONT 125 mls/hr .Q8H VINAY Administration Piperacillin Sod/Tazobactam Sod 2.25 gm in 50 mls @ 100 mls/hr 05/21/22 00:00 05/22/22 12:31 Zosyn 2.25 Gm/D5w 50 Ml IVPB Infused Q6HR VINAY Infusion Ondansetron HCl 4 mg 05/20/22 11:51 05/22/22 09:26 Ondansetron Inj 4 Mg/2 Ml Vial IV PUSH 4 mg Q4H PRN Administration Nausea Radiology Results: ITS Impressions Abdomen/Pelvis CT 05/20/22 10:32 IMPRESSION: 1. Nonspecific moderate amount of simple fluid attenuation ascites scattered throughout the abdomen and pelvis along with a small amount of right retroperitoneal fluid/stranding along the
[2022-05-22 16:00] VITALS: BP 109/52; PULSE 96; RESP 17; TEMP 36.6; O2SAT 91
--- NOTE | 2022-05-22 16:04 | PM.IMPN ---
Progress Note: A&P Assessment and Plan (1) Sepsis: Code(s): A41.9 - Sepsis, unspecified organism Status: Acute Assessment and Plan: Patient meets sepsis criteria with tachycardia, tachypnea, leukocytosis, and elevated lactic acid level. Lactic acid has improved with IV fluid rehydration. [place] related to peritonitis. Her blood pressures have remained stable. Blood cultures NGTD. Urine culture negative. (2) Perforation of bladder during operative procedure: Code(s): N99.72 - Accidental puncture and laceration of a genitourinary system organ or structure during other procedure Status: Acute Assessment and Plan: Patient experienced diffuse abdominal pain not long after a diagnostic laparoscopy with adhesiolysis on 05/19. -CT A/P showing moderate amount of ascites and right retroperitoneal fluid/stranding. -Renal US normal with moderate ascites. -Retrograde pyelogram okay but cystoscopy showing an injury in the bladder dome with intraperitoneal extravasation. -Robotic assisted repair of a bladder injury 05/21 Patient tolerated the bladder repair well. Increase activity level. Cultures are negative. laboratory values are within normal limits. Okay for discharge from medical standpoint. (3) Acute kidney injury: Code(s): N17.9 - Acute kidney failure, unspecified Status: Acute Assessment and Plan: Consider secondary to sepsis but more likely related to urine extravasation into the abd cavity resulting in elevated Cr. Cr normal now. Continue empiric abx. Nephrology was consulted and appreciate their input. (4) Abdominal pain: Code(s): R10.9 - Unspecified abdominal pain Status: Acute Assessment and Plan: As above Subjective Date/time seen: 05/22/22 16:04 Interval history: 36yo female with recent diagnostic laparoscopy with adhesiolysis for chronic cyclic pelvic pain whom the hospitalist service has been consulted for help with medical management after she was found to have acute kidney injury after presenting to the ED with complaints of abdominal pain and difficulties urinating. patient has not been out of bed much. No flatus or bowel movements. Pain is reasonably well controlled. She is not eating very much. Exam Narrative: AF 98.0 112/57 79 24 93% ra Gen - NARD Chest - lungs clear anteriorly And in the flanks. CV - RRR S1/S2 Abd - soft. Obese. Incisions are clean, dry and intact. Drain in place with serosanguineous fluid in the bulb. Ext - No pedal edema Psych - Nml mood and affect Skin - Warm and dry Objective Data Vital Signs Vital Signs: Vital Signs - 24 hr 05/21/22 16:16 05/21/22 16:30 05/21/22 16:45 Temperature 97.5 F L Pulse Rate 93 79 85 Respiratory Rate 20 16 20 Blood Pressure 99/79 L 98/58 L 107/63 Pulse Oximetry 96 99 98 Oxygen Delivery Simple Face Mask Simple Face Mask Simple Face Mask Oxygen Flow Rate 8 8 8 05/21/22 17:00 05/21/22 17:15 05/21/22 17:30 Temperature Pulse Rate 78 86 78 Respiratory Rate 18 20 16 Blood Pressure 102/67 97/55 L 102/57 L Pulse Oximetry 94 95 94 Oxygen Delivery Nasal Cannula Nasal Cannula Nasal Cannula Oxygen Flow Rate 2 2 2 05/21/22 18:09 05/21/22 18:21 05/21/22 20:00 Temperature 97.6 F Pulse Rate 96 Respiratory Rate 18 Blood Pressure 114/67 Pulse Oximetry 96 97 97 Oxygen Delivery Nasal Cannula Nasal Cannula Oxygen Flow Rate 2 2 05/21/22 20:37 05/21/22 23:36 05/22/22 03:54 Temperature 97.5 F L 97.6 F Pulse Rate 93 81 Respiratory Rate 20 20 Blood Pressure 112/63 108/57 L Pulse Oximetry 97 98 Oxygen Delivery Room Air Oxygen Flow Rate 05/22/22 08:00 05/22/22 08:00 Temperature 98.0 F Pulse Rate 79 79 Respiratory Rate 24 H 24 H Blood Pressure 112/57 L Pulse Oximetry 93 93 Oxygen Delivery Room Air Oxygen Flow Rate Intake/Output Intake/Output: Intake & Output 05/19/22 05/20/22 05/21/22 05/22/22 23:5
[2022-05-22 22:53] VITALS: BP 115/72; PULSE 84; RESP 16; TEMP 36.2; O2SAT 92
[2022-05-23] MEDS: HYDROmorphone HCL INJ (*CRX) 1 MG/ML SYR IV PUSH ×2 (01:17→05:09)
[2022-05-23] MEDS: ACETAMINOPHEN 325 MG TABLET 650 MG PO ×2 (05:01→12:40)
[2022-05-23 07:35] VITALS: BP 118/76; PULSE 88; RESP 18; TEMP 36.2; O2SAT 90
--- NOTE | 2022-05-23 08:41 | PM.GYNPNOP ---
DIRECTOR OF BUSINESS CONTINUITY - A/P Postoperative Procedures: Procedures Operation Date: 05/20/22 17:00 Actual Procedure Side Surgeon p Cystoscopy, bilateral retrograde pyleograms, cystogram Mikael Saunders MD Operation Date: 05/21/22 14:00 Actual Procedure Side Surgeon p Robotic Repair Of Bladder Injury, Cystoscopy Not Applicable Mikael Saunders MD Postoperative day: 2 Postoperative status: doing well Postoperative plan: other (Waiting for renal consult put in by hospitalist. Likely dc home. ) Time Spent With Patient Time: Total time spent is greater than 50% in coordination of care (as documented) at patient's floor/unit and/or counseling patient: Time with patient: less than 15 minutes DIRECTOR OF BUSINESS CONTINUITY- PN:Subj Post-Op Subjective Date/time seen: 05/23/22 08:41 Interval history: increased ambulation less weak pain well controlled no nausea Subjective: patient reports feeling better Exam Narrative: inc c/d/i CANDELARIO drain removed as minimal output last 12+ hours DIRECTOR OF BUSINESS CONTINUITY - PN: Obj Data Vital Signs Vital Signs: Vital Signs - 24 hr 05/22/22 16:00 05/22/22 22:53 05/23/22 07:35 Temperature 97.9 F 97.2 F L 97.1 F L Pulse Rate 96 84 88 Respiratory Rate 17 16 18 Blood Pressure 109/52 L 115/72 118/76 Pulse Oximetry 91 92 90 Intake/Output Intake/Output: Intake & Output 05/20/22 05/21/22 05/22/22 05/23/22 23:59 23:59 23:59 23:59 Intake Total 3100 3000 3285 700 Output Total 740 6534 2115 1350 Balance 2360 -3534 1170 -650 Meds/Results Medications: Active Medications Generic Name Dose Route Start Last Admin Trade Name Freq PRN Reason Stop Dose Admin Acetaminophen 650 mg 05/20/22 14:16 05/23/22 05:01 Acetaminophen 325 Mg Tablet PO 650 mg Q6H PRN Administration Mild Pain (1-3) or Fever Hydromorphone HCl 1 mg 05/20/22 11:51 05/23/22 05:09 Hydromorphone Hcl Inj (*Crx) 1 Mg/Ml Syr IV PUSH 1 mg Q4H PRN Administration Pain Rated 7-10 Piperacillin Sod/Tazobactam Sod 2.25 gm in 50 mls @ 100 mls/hr 05/21/22 00:00 05/23/22 07:11 Zosyn 2.25 Gm/D5w 50 Ml IVPB 0 mls/hr Q6HR VINAY Infusion Ondansetron HCl 4 mg 05/20/22 11:51 05/22/22 09:26 Ondansetron Inj 4 Mg/2 Ml Vial IV PUSH 4 mg Q4H PRN Administration Nausea Radiology Results: ITS Impressions Abdomen/Pelvis CT 05/20/22 10:32 IMPRESSION: 1. Nonspecific moderate amount of simple fluid attenuation ascites scattered throughout the abdomen and pelvis along with a small amount of right retroperitoneal fluid/stranding along the paracolic gutter. 2. No abscess, hemoperitoneum, free intraperitoneal gas or other acute intra-abdominal/pelvic process. 3. IUD in expected position within the anteverted uterus. Renal Ultrasound 05/20/22 15:29 Impression: 1: Unremarkable renal ultrasound. No stones, masses or hydronephrosis. 2: Moderate ascites. Retrograde Pyelogram 05/20/22 21:00 IMPRESSION: 1. Unremarkable bilateral retrograde pyelogram.. Correlate with real time procedural findings for details. Labs 05/22/22 05:21 05/22/22 05:21 Labs: Laboratory Results - last 24 hr 05/20/22 15:43 Serum Osmolality 283
--- NOTE | 2022-05-23 09:24 | PM.OBPNLAB ---
Pain Control Date/time seen: 05/23/22 09:24 Comments: u/s- DESTIN 8.5, BPP 6/8 (-2 breathing), growth and dopplers ok Plan AROm Pelvic Exam Dilation (cm): 3 Effacement (%): 70 station: -2 Amniotic membrane status: Ruptured (AROM with meconium noted) Status status: Category ll Comments: 150's with good variability
[2022-05-23] MEDS: HYDROcodone/acetaminophen (*CRX) 5-325 MG TABLET 1 TAB PO ×2 (09:36→15:07)
--- NOTE | 2022-05-23 12:42 | PM.IMPN ---
Progress Note: A&P Assessment and Plan (1) Sepsis: Code(s): A41.9 - Sepsis, unspecified organism Status: Acute Assessment and Plan: Patient meets sepsis criteria with tachycardia, tachypnea, leukocytosis, and elevated lactic acid level. Lactic acid has improved with IV fluid rehydration. [place] related to peritonitis. Her blood pressures have remained stable. Blood cultures NGTD. Urine culture negative. SpO2 90% but felt related to atelectasis (seen on CT) from abd pain. STOP BANG score of 1. Should improve with activity and decreased abd pain. Continue abx to complete a course. Okay for discharge from medical standpoint. (2) Perforation of bladder during operative procedure: Code(s): N99.72 - Accidental puncture and laceration of a genitourinary system organ or structure during other procedure Status: Acute Assessment and Plan: Patient experienced diffuse abdominal pain not long after a diagnostic laparoscopy with adhesiolysis on 05/19. -CT A/P showing moderate amount of ascites and right retroperitoneal fluid/stranding. -Renal US normal with moderate ascites. -Retrograde pyelogram okay but cystoscopy showing an injury in the bladder dome with intraperitoneal extravasation. -Robotic assisted repair of a bladder injury 05/21 Patient tolerated the bladder repair well. Increase activity level. Home with abx. Home with Cavazos. Follow up with urology. (3) Acute kidney injury: Code(s): N17.9 - Acute kidney failure, unspecified Status: Acute Assessment and Plan: Consider secondary to sepsis but more likely related to urine extravasation into the abd cavity resulting in elevated Cr. Cr normal now. Continue empiric abx. Nephrology was consulted and appreciate their input. (4) Abdominal pain: Code(s): R10.9 - Unspecified abdominal pain Status: Acute Assessment and Plan: As above Subjective Date/time seen: 05/23/22 12:42 Interval history: 36yo female with recent diagnostic laparoscopy with adhesiolysis for chronic cyclic pelvic pain whom the hospitalist service has been consulted for help with medical management after she was found to have acute kidney injury after presenting to the ED with complaints of abdominal pain and difficulties urinating. No issues overnight. Increase crampy abd pain with removal of the drain. Eating okay. Passing flatus, no BMs. Abd pain overall is better. Exam Narrative: AF 118/76 88 18 90% ra Gen - NARD Chest - lungs CTA bilaterally CV - RRR S1/S2 Abd - soft. Obese. Incisions are clean, dry and intact. Ext - No pedal edema Psych - Nml mood and affect Skin - Warm and dry Objective Data Vital Signs Vital Signs: Vital Signs - 24 hr 05/22/22 16:00 05/22/22 22:53 05/23/22 07:35 Temperature 97.9 F 97.2 F L 97.1 F L Pulse Rate 96 84 88 Respiratory Rate 17 16 18 Blood Pressure 109/52 L 115/72 118/76 Pulse Oximetry 91 92 90 Oxygen Delivery 05/23/22 09:15 Temperature Pulse Rate Respiratory Rate Blood Pressure Pulse Oximetry Oxygen Delivery Room Air Intake/Output Intake/Output: Intake & Output 05/20/22 05/21/22 05/22/22 05/23/22 23:59 23:59 23:59 23:59 Intake Total 3100 3000 3285 1150 Output Total 740 6534 2115 1350 Balance 2360 -1344 1170 -200 Meds/Results Medications: Active Medications Generic Name Dose Route Start Last Admin Trade Name Freq PRN Reason Stop Dose Admin Acetaminophen 650 mg 05/20/22 14:16 05/23/22 12:40 Acetaminophen 325 Mg Tablet PO 650 mg Q6H PRN Administration Mild Pain (1-3) or Fever Hydrocodone Bitart/Acetaminophen 1 tab 05/23/22 09:26 05/23/22 09:36 Hydrocodone/Acetaminophen (*Crx) 5-325 Mg Tablet PO 1 tab Q6H PRN Administration Pain Rated 4-6 Hydromorphone HCl 1 mg 05/20/22 11:51 05/23/22 05:09 Hydromorphone Hcl Inj (*Crx) 1 Mg/Ml Syr IV PUSH 1 mg Q4H PRN Administration Pain Rated 7-10 [place]
--- NOTE | 2022-05-23 14:03 | WPDUROPN2 ---
Progress Note: A&P Assessment and Plan (1) Perforation of bladder during operative procedure: Code(s): N99.72 - Accidental puncture and laceration of a genitourinary system organ or structure during other procedure Status: Acute Assessment and Plan: Doing well at this time. Patient to be discharged home today. Will plan on catheter cystogram in 7-10 days and patient is to call the office for scheduling has not heard from Dr. Saunders office Subjective Subjective Date/Time Seen: 05/23/22 14:03 Principal diagnosis: Bladder injury Interval history: patient is doing well at this time. CANDELARIO is out. Ambulating and passing flatus. Review of Systems Review of Systems: All systems reviewed & are unremarkable except as noted in HPI and below Exam Const: General: cooperative, comfortable and no acute distress Urinary Catheter: Urinary Catheter: patent and draining and urine clear Objective Data Vital Signs Vital Signs: Vital Signs - 24 hr 05/22/22 16:00 05/22/22 22:53 05/23/22 07:35 Temperature 36.6 C 36.2 C L 36.2 C L Pulse Rate 96 84 88 Respiratory Rate 17 16 18 Blood Pressure 109/52 L 115/72 118/76 Pulse Oximetry 91 92 90 Oxygen Delivery 05/23/22 09:15 Temperature Pulse Rate Respiratory Rate Blood Pressure Pulse Oximetry Oxygen Delivery Room Air Intake/Output Intake/Output: Intake & Output 05/20/22 05/21/22 05/22/22 05/23/22 23:59 23:59 23:59 23:59 Intake Total 3100 3000 3285 1644 Output Total 740 6534 2115 1350 Balance 2360 -3534 1170 294 Meds/Results Medications: Active Medications Generic Name Dose Route Start Last Admin Trade Name Freq PRN Reason Stop Dose Admin Acetaminophen 650 mg 05/20/22 14:16 05/23/22 12:40 Acetaminophen 325 Mg Tablet PO 650 mg Q6H PRN Administration Mild Pain (1-3) or Fever Hydrocodone Bitart/Acetaminophen 1 tab 05/23/22 09:26 05/23/22 09:36 Hydrocodone/Acetaminophen (*Crx) 5-325 Mg Tablet PO 1 tab Q6H PRN Administration Pain Rated 4-6 Hydromorphone HCl 1 mg 05/20/22 11:51 05/23/22 05:09 Hydromorphone Hcl Inj (*Crx) 1 Mg/Ml Syr IV PUSH 1 mg Q4H PRN Administration Pain Rated 7-10 Piperacillin Sod/Tazobactam Sod 2.25 gm in 50 mls @ 100 mls/hr 05/21/22 00:00 05/23/22 12:33 Zosyn 2.25 Gm/D5w 50 Ml IVPB Infused Q6HR VINAY Infusion Ondansetron HCl 4 mg 05/20/22 11:51 05/22/22 09:26 Ondansetron Inj 4 Mg/2 Ml Vial IV PUSH 4 mg Q4H PRN Administration Nausea Radiology Results: ITS Impressions Abdomen/Pelvis CT 05/20/22 10:32 IMPRESSION: 1. Nonspecific moderate amount of simple fluid attenuation ascites scattered throughout the abdomen and pelvis along with a small amount of right retroperitoneal fluid/stranding along the paracolic gutter. 2. No abscess, hemoperitoneum, free intraperitoneal gas or other acute intra-abdominal/pelvic process. 3. IUD in expected position within the anteverted uterus. Renal Ultrasound 05/20/22 15:29 Impression: 1: Unremarkable renal ultrasound. No stones, masses or hydronephrosis. 2: Moderate ascites. Retrograde Pyelogram 05/20/22 21:00 IMPRESSION: 1. Unremarkable bilateral retrograde pyelogram.. Correlate with real time procedural findings for details. Labs Labs: Laboratory Results - last 24 hr 05/20/22 15:43 Serum Osmolality 283
[2022-05-25 20:46] LABS: Osmolality, Urine 177 mOsm/kg (50-1200)
[2022-05-26 12:52] LABS: Complement Total CH50 >60 U/mL (31-60)
[2022-05-26 13:40] LABS: Chloride Rand Ur <20 mmol/L (32-290); Creatinine Random Urine 46 mg/dL (20-275)
--- NOTE | 2022-06-02 11:12 | PM.DS ---
DS: Admitting Diagnosis Discharge Date 05/23/22 Admitting Diagnosis Pelvic pain DS: Discharge Diagnosis Discharge Diagnosis Plan Incidental cystotomy DS: Summary Hospital Course Reason for hospitalization: Pelvic pain Hospital Course: She was admitted through ED with complaints of pelvic pain with urination. She was one day status post laparoscopy for FAITH. She also had elevated creatinine. Abdominal ascites fluid seen on CT. She had symptoms consistent with cytotomy. Urology was consulted. She had a diagnostic cystoscopy in the evening of admission and it was repaired the next day laparoscopicly by Urology. Post operatively she did well. She had an indwelling catheter. Creatinine normalized. Her pain improved. She was discharged to home on POD2. Status at Discharge Functional status at discharge: independent ambulation Overall status at discharge: patient is progressing back to baseline Time Spent with Patient Time attestation: Total time spent providing and/or coordinating discharge services: Specific discharge activities: Hospitalist consultation. Exam Const: General: no acute distress Resp: Effort & Inspection: normal respiratory effort GI: Other: abdomen, incisions healing, mild tenderness mid and right, no guarding or rebound Urinary Catheter: Urinary Catheter: patent and draining Extrem: General: normal to inspection and no calf tenderness Psych: Appearance: grossly normal DS: Data Procedures/Treatments: Urology consultation. Repair of cystotomy. Discharge Plan Discharge Attending physician on discharge: Daniel Hooks Consulting providers: Daniel Hooks ; Xavier Spring ; Mikael Saunders ; Franny Pineda ; Giovanny Urban ; Sergio Winston ; Devyn Callejas Discharging Clinician: Edna Amador Patient Disposition: Home, Self-Care Activity: may shower, may drive after 2 weeks and pelvic rest Diet: regular Wound Care Instructions: incision open to air Patient Instructions: Antibiotic Form, Pain Management (DC), Cavazos Catheter Placement and Care (DC) Stand Alone Forms: General Discharge Information Follow-up/Referrals: Mikael Saunders MD [Physician] - Call for Appointment Daniel Hooks MD [Physician] - Call for Appointment Discharge Medications: New sulfamethoxazole-trimethoprim [Bactrim DS] 800-160 mg tablet 1 tablet PO Q12H Qty: 10 0RF oxybutynin chloride 5 mg tablet 5 mg PO TID PRN (Reason: bladder spasms) Qty: 30 0RF Continued Mirena 20 mcg/24 hours (5 yrs) 52 mg Intrauterine Device 1 device INTRAUTERINE ONCE tramadol 50 mg tablet 50 mg PO Q6H PRN (Reason: Pain) Saccharomyces boulardii [Daily Probiotic (S. boulardii)] 250 mg capsule 250 mg PO BID cyanocobalamin (vitamin B-12) 1,000 mcg capsule 1,000 mcg PO DAILY cholecalciferol (vitamin D3) 25 mcg (1,000 unit) capsule 25 mcg PO DAILY hydrocodone-acetaminophen 5-325 mg tablet 1 tablet PO Q6H PRN (Reason: pain) Qty: 10 0RF cyclobenzaprine 5 mg tablet 5 mg PO TID PRN (Reason: muscle spasm) Qty: 30 0RF Date of admission: 05/20/22 11:52 Primary Care Provider: PHYSICIAN,CUTTING AND SPLICING SUPERVISOR Admitting Provider: Daniel Hooks Attending physician on admission: Edna Amador Condition: Stable
== END 2022-05-23 16:00 | disposition home or self-care (01) | DRG 908 ==
LOC: ANHED 09:15 → ANHIMU 14:41 → ANH3MEDSUR 05-21 10:58 → ANHIMU 05-21 10:58 → ANH3MEDSUR 05-22 12:07
PROVIDERS: Internal Medicine; Physician Assistant; Urology; Admitting Provider Obstetrics & Gynecology; Emergency Provider Emergency Medicine; Visit Provider Obstetrics & Gynecology Gynecology
PROC: 0T9B80Z Drainage of Bladder with Drainage Device, Via Natural or Artificial Opening Endoscopic (ICD-10-PCS; CPT 52352; principal; 2022-05-20 17:00)
PROC: 0VT04ZZ Resection of Prostate, Percutaneous Endoscopic Approach (ICD-10-PCS; CPT 55867; principal; 2022-05-21 14:00)
DX: N99.72 Accidental puncture and laceration of a genitourinary system organ or structure during other procedure (principal); N17.8 Other acute kidney failure; N99.0 Postprocedural (acute) (chronic) kidney failure; Z20.822 Contact with and (suspected) exposure to COVID-19; K21.9 Gastro-esophageal reflux disease without esophagitis; E66.9 Obesity, unspecified; Z68.36 Body mass index [BMI] 36.0-36.9, adult
CPT/HCPCS: 36415; 51701; 74176; 74420; 76775; 80048; 80053; 80069; 81001; 82436; 82550; 82570; 82948; 83605; 83735; 83930; 83935; 84100; 84133; 84156; 84300; 85025; 85610; 85652; 85730; 85999; 86140; 86160; 86162; 87040; 87086; 87637; 96361; 96374; 96376; 99285; A9270; C1758; C1769; J1100; J1170; J2250; J2405; J2543; J2704; J3010; J7030; J7120

== ENCOUNTER 2022-06-02 13:33 | Outpatient (CLI) | payer OTHER, SELFPAY ==
--- NOTE | ~2022-06-02 | XR_ITS ---
XR cystogram DATE: 06/02/2022 14:15 INDICATION: Laparoscopic exploratory surgery with bladder injury 13 days ago TECHNIQUE: Fluoroscopy and spot images were obtained, including senior hr business partner image of the pelvis, fluoroscop y and spot images during filling of the bladder with 200 CC through an existing Cavazos catheter. Spot postevacuation image. 7 images 0.7 minutes fluoroscopy time DAP: 21.4 COMPARISON: None FINDINGS: An IUD is noted. There is no evidence of extravasation of contrast material from the bladder lumen. No vesicoureteral reflux. No intraluminal bladder lesion. IMPRESSION: No evidence of bladder leakage Reviewed, dictated and finalized at [facility]. Reviewed, dictated and finalized at [facility]. GER LAUNDRY
== END 2022-06-02 13:34 | disposition home or self-care (01) ==
LOC: ANHIMG 13:35
PROVIDERS: PCP Internal Medicine; Visit Provider Nurse Practitioner Adult Health
DX: S37.20XA Unspecified injury of bladder, initial encounter (principal); T14.90XA Injury, unspecified, initial encounter
CPT/HCPCS: 51600; 74430; Q9967

== ENCOUNTER 2022-08-31 12:15 | Outpatient (CLI) | payer OTHER, SELFPAY ==
--- NOTE | ~2022-08-31 | US_ITS ---
EXAMINATION: US retroperitoneal comp DATE: 08/31/2022 12:37 INDICATION: absence of bladder sensation TECHNIQUE: Multiple grayscale and Doppler ultrasound images of the kidneys were obtained. COMPARISON: Retrograde pyelogram 05/20/2022, renal ultrasound 05/20/2022, and CT abdomen pelvis 05/20/19 23 FINDINGS: The right kidney measures 11.3 x 5.1 x 5.0 cm. The left kidney measures 11.4 x 4.7 x 5.3 cm. The kidn eys demonstrate normal parenchymal echogenicity. There is no hydronephrosis. The bladder is partially distended, grossly normal. IMPRESSION: Bladder not well evaluated due to lack of full distention, otherwise unremarkable renal sonogram find ings. Reviewed, dictated and finalized at [facility]. IMPRESSION: Bladder not well evaluated due to lack of full distention, otherwise unremarkab le renal sonogram findings.
== END 2022-08-31 12:16 | disposition home or self-care (01) ==
LOC: CHSIMG 12:17
PROVIDERS: PCP Internal Medicine; Visit Provider Nurse Practitioner Adult Health
DX: R39.89 Other symptoms and signs involving the genitourinary system (principal)
CPT/HCPCS: 76770

== ENCOUNTER 2023-03-02 16:23 | Emergency (ER) | payer OTHER, SELFPAY ==
--- NOTE | ~2023-03-02 | CT_ITS ---
EXAMINATION: CT abdomen pelvis wo con DATE: 03/02/2023 17:57 INDICATION: LEFT flank pain/HX OF KIDNEY STONES TECHNIQUE: Computed tomography (CT) of the abdomen and pelvis was performed without intravenous contr ast. Automated exposure control and iterative reconstruction technique were employed. The dose-length product was 1170.17 mGy-cm. COMPARISON: 05/20/2022. FINDINGS: Lower thorax: Unremarkable Liver: Normal. Biliary/Gallbladder: Gallbladder is collapsed. No bile duct dilation. Pancreas: No mass or duct dilation. Spleen: Normal. Adrenals:No mass. Kidneys: No suspicious mass, obstructing stone, or hydronephrosis. GI tract: No small or large bowel dilation. Normal appendix. Mesentery/Peritoneum: No ascites, mass, or free air. Retroperitoneum: No mass. Pelvis: IUD, asymmetrically positioned within the uterus. Otherwise the pelvic organs are within norm al limits. Soft Tissues: Soft tissues and body wall unremarkable. Bones: No acute osseous finding. IMPRESSION: No CT evidence of obstructive uropathy. IUD is asymmetrically positioned within the uterine body. Correlate with pelvic symptoms. Consider pe lvic ultrasound. Reviewed, dictated and finalized at location [facility]. LOINER IMPRESSION: No CT evidence of obstructive uropathy. IUD is asymmetrically positioned within the uterine body. Correlate with pelvic symptoms. Consider pelvic ultrasound.
[2023-03-02 16:25] VITALS: BP 140/84; PULSE 81; RESP 18; TEMP 37.1; O2SAT 98
--- NOTE | 2023-03-02 16:57 | ED.ABDPAIN ---
HPI - Abdominal Pain General Chief Complaint: Urogenital-Female Stated Complaint: kidney stone Time Seen by Provider: 03/02/23 16:40 Source: patient Mode of arrival: ambulatory Limitations: no limitations History of Present Illness HPI narrative: 37-year-old female with a history of C-sections x2, left ureteric stone status post cystoscopy with stent placement in 2017, laparoscopic lysis of adhesions in May of this year complicated by bladder injury status post urological repair, presents to the ER with a 2 day history of -- lower back pain -- decreased urination in spite of adequate fluid input. -- Chills without any fever MD elicited complaint: other ( back pain) Pertinent past history: kidney stones Onset (ago): day(s) ( 2 days) Pain Consistency: intermittent Location: other ( lower back) Severity: moderate Quality: aching Radiation: none Migration to: no migration Exacerbating factors: nothing Relieving factors: nothing Associated symptoms: chills Related Data Home Medications Medication Instructions Recorded Confirmed levonorgestrel 21 mcg/24 hours (8 1 device intrauterine ONCE 09/05/19 05/20/22 yrs) 52 mg intrauterine device (Mirena) Saccharomyces boulardii 250 mg 250 mg PO BID 06/22/21 05/20/22 capsule (Daily Probiotic (S. boulardii)) cholecalciferol (vitamin D3) 25 25 mcg PO DAILY 06/22/21 05/20/22 mcg (1,000 unit) capsule cyanocobalamin (vitamin B-12) 1,000 mcg PO DAILY 06/22/21 05/20/22 1,000 mcg capsule tramadol 50 mg tablet 50 mg PO Q6H PRN Pain 06/22/21 05/20/22 Allergies Allergy/AdvReac Type Severity Reaction Status Date / Time adhesive Allergy Unknown RASH Verified 06/09/22 15:38 latex Allergy Unknown Rash Verified 06/09/22 15:38 Review of Systems Review of Systems: All systems reviewed & are unremarkable except as noted in HPI and below Constitutional: Constitutional: Reports as per HPI and Reports no additional constitutional complaints Eyes: Eyes: Reports as per HPI and Reports no additional eye complaints ENT: Reports system reviewed and no additional complaints, except as documented and Reports as per HPI Cardiovascular: Cardiovascular: Reports as per HPI and Reports no additional cardiovascular complaints Respiratory: Respiratory: Reports as per HPI and Reports no additional respiratory complaints Gastrointestinal: Gastrointestinal: Reports as per HPI and Reports no additional gastrointestinal complaints Genitourinary: Genitourinary: Reports no additional female genitourinary complaints Musculoskeletal: Musculoskeletal: Reports no additional musculoskeletal complaints, Reports as per HPI and Reports back pain Integumentary/Breasts: Skin/Breast: Reports system reviewed and no additional complaints, except as docu and Reports as per HPI Neurologic: Reports system reviewed and no additional complaints, except as documented and Reports as per HPI Psychiatric: Psychiatric: Reports no additional psychiatric complaints and Reports as per HPI Endocrine: Endocrine: Reports no additional endocrine complaints and Reports as per HPI Hematologic/Lymphatic: Hematologic/Lymphatic: Reports no additional hematologic/lymphatic complaints and Reports as per HPI Allergic/Immunologic: Allergic/Immunologic: Reports no additional allergic/immunologic complaints and Reports as per HPI PMFSH Past Medical History Medical History Acid reflux Cyclical pelvic pain History of cystogram Surgical History Surgical History H/O cystoscopy History of 2 sections History of laparotomy (05/19/22) History of laser assisted in situ keratomileusis History of lithotripsy History of spinal surgery Coccygectomy. History of surgical removal of ganglion cyst Left wrist. History of tonsillectomy S/P laparoscopy Family History Family History (Reviewed 03/02/23 @ 17:23 by
[2023-03-02 17:09] LABS: Appearance Urine Clear (Clear); Bilirubin Urine Negative (Negative); Blood Urine 1+ (Negative); Color Urine Light Yellow (Yellow); Glucose Urine UA Negative (Negative); Ketones Urine Negative (Negative); Leukocyte Esterase Ur Negative LEU/UL (Negative); Nitrate Urine Negative (Negative); Protein Urine Negative (Negative); Specific Grav Ur 1.015 (1.010-1.020); Urobilinogen Urine 0.2 mg/dL (0.2-1.0)
[2023-03-02 17:13] LABS: Add Urine Microscopic? YES; Bacteria Urine 1+ /hpf; Squamous Epithelial Cell Urine Few /hpf (Few); WBC Urine None seen /hpf (0-3)
[2023-03-02 17:18] LABS: Pregnancy On Board Control Positive; Urine Pregnancy Test Negative
[2023-03-02 17:42] LABS: Basophils Absolute Auto 0.07 K/mm3 (0.00-0.10); Basophils Percent Auto 0.7 % (0.0-1.0); Eosinophils Absolute Auto 0.26 K/mm3 (0.02-0.50); Eosinophils Percent Auto 2.4 % (1.0-6.0); Hematocrit 40.9 % (35.0-49.0); Hemoglobin 13.2 g/dL (12.0-15.0); Immature Granulocyte Percent A 0.9 % (0.0-0.0); Lymphocytes Absolute Auto 3.12 K/mm3 (1.10-4.50); Lymphocytes Percent Auto 29.1 % (18.0-42.0); Mean Corpuscular HGB Conc 32.3 g/dL (32.0-36.0); Mean Corpuscular Hemoglobin 27.9 pg (27.0-31.0); Mean Corpuscular Volume 86.5 fL (78.0-102.0); Mean Platelet Volume 10.2 fl (9.2-11.8); Monocytes Absolute Auto 0.59 K/mm3 (0.10-0.90); Monocytes Percent Auto 5.5 % (2.0-11.0); Neutrophils Absolute Auto 6.6 K/mm3 (1.7-7.2); Neutrophils Percent Auto 61.4 % (50.0-70.0); Platelet Count Result 268 K/mm3 (150-420); Red Blood Count 4.73 M/mm3 (4.20-5.40); White Blood Count 10.7 K/mm3 (4.8-10.8)
[2023-03-02 18:03] LABS: Lactic Acid Reflex 0.6 mmol/L (0.4-2.0)
[2023-03-02 18:09] LABS: Alanine Aminotransferase 34 U/L (14-59); Albumin Level 3.9 g/dL (3.4-5.0); Alkaline Phosphatase 76 U/L (46-116); Anion Gap 8 mmol/L (8-16); Aspartate Amino Transferase 14 U/L (15-37); Bilirubin,Total 0.2 mg/dL (0.00-1.00); Blood Urea Nitrogen 13 mg/dL (7-18); Calcium 9.2 mg/dL (8.5-10.1); Carbon Dioxide 28 mmol/L (21-32); Chloride 104 mmol/L (98-108); Estimated CRCL calculation 111 ml/min; Estimated Glomerular Filt Rate > 60; Glucose 100 mg/dL (70-99); Osmolality Calculated 290 mOsm/kg (285-295); Sodium 140 mmol/L (136-145)
[2023-03-02 18:11] LABS: Lipase 28 U/L (16-77)
[2023-03-02 18:20] VITALS: BP 132/69; PULSE 75; RESP 20; O2SAT 97
== END 2023-03-02 18:41 | disposition home or self-care (01) ==
PROVIDERS: Emergency Provider Internal Medicine Critical Care Medicine; PCP Internal Medicine
DX: M54.50 Low back pain, unspecified (principal)
CPT/HCPCS: 36415; 74176; 80053; 81001; 81025; 83605; 83690; 85025; 99284

== ENCOUNTER 2023-10-26 00:13 | Day surgery (SDC) | payer OTHER, SELFPAY ==
[2023-10-18 15:36] VITALS: BMI 37.8
--- NOTE | 2023-10-18 16:03 | PC.NURSE ---
Report to the Outpatient Waiting Room, entrance under the green pavilion located off [facility], at time __1100 on date ___[id number]____. Planned Procedure Time: __1300 . Time changes happen often and if your time is changed the preop area will call you the afternoon before. - You and your visitor will be asked to self-screen and do not enter if you have any COVID symptoms. - A mask is optional within the hospital at this time. Patients may have clear liquids (water, carbonated beverages, clear teas, apple juice) until 3 hours prior to surgery with a maximum of 20 ounces. stop at 1000 - No food from midnight until time of surgery - Take the following medications with a SIP of water the morning of surgery: ____Nextxtliss. tramadol (prn), methocarbamol (prn) DO NOT STOP ANY OF YOUR OTHER PRESCRIPTION MEDICATIONS PRIOR TO SURGERY ?EXCEPT THE FOLLOWING: Medications to discontinue per physician DO NOT TAKE SEMAGLUTIDE FROM NOW UNTIL TIME OF SURGERY (LAST DOSE WAS ON 10-16-2023) HOLD ALL SUPPLEMENTS FOR 3 DAYS PRIOR TO SURGERY (LAST DOSE TO TAKE: 10-22-2023) Please no make-up, nail sri lankan, hairspray, perfume, deodorant, or body powder the day of surgery. No jewelry (including any body piercings) or valuables the day of surgery, leave them at home. Please take a shower or bath the night before, or the morning of, surgery with an antibacterial soap. Wear comfortable, loose fitting clothing. - Jewelry must be removed prior to entering the operating room. Rings and piercings that are not removed may be cut off. - The hospital will not accept responsibility for valuables. - Please leave all valuables, including medications, at home the day of surgery. If you are going home after surgery, a licensed wrecker driver must drive you home. - NO public transportation without another adult if you receive anesthesia. - We recommend that an adult stay with you for 24 hours following discharge. - We also recommend that you do not drive, make important decision, drink alcoholic beverages, or take any drugs that were not prescribed by your health care provider for at least 24 hours after your discharge time. Follow any additional instructions given to you from your surgeon. If you or anyone in your household have experienced Covid symptoms in the past week, please notify your surgeon or the nurse liaison at the phone number below for possible testing. Telephone instructions given to ____patient (Florencia) and asked if any additional questions and then verbalized understanding. Patient advised to call surgeon office or pre surgery nurse liaison [phone] if any additional questions.
[2023-10-26 11:18] VITALS: BP 112/69; PULSE 73; RESP 16; TEMP 36.5; O2SAT 99
[2023-10-26] MEDS: LACTATED RINGERS 1,000 ML 30 ML IV CONT (11:25)
[2023-10-26] MEDS: ACETAMINOPHEN 500 MG TABLET 1000 MG PO (11:34)
--- NOTE | 2023-10-26 11:42 | PM.IMHP ---
H&P: HPI History of Present Illness Date/Time: 10/26/23 11:42 Chief Complaint: Irregular bleeding. Narrative: 37 y/o who has a progestin containing IUD, but has had continued irregular bleeding. She is interested in surgical management of her problem. Her has a vasectomy scheduled for next week. [facility] Past Medical History Medical History Acid reflux Cyclical pelvic pain History of cystogram Surgical History Surgical History H/O cystoscopy History of 2 sections History of laparotomy (05/19/22) History of laser assisted in situ keratomileusis History of lithotripsy History of spinal surgery Coccygectomy. History of surgical removal of ganglion cyst Left wrist. History of tonsillectomy S/P laparoscopy Family History Family History Mother Cervical cancer Father Diabetes mellitus Social History Social History Social History: Surrogate medical decision maker: Cuba Yaneziott, spouse. Code status: Full code. Smoking status: Never smoker Second hand tobacco smoke exposure: No Alcohol intake: current Drinks per week: 0 Alcohol use details: very rare/ social Substance use: never Substance use type: does not use Lack of Transportation: No Lack of Food: Never True Current Housing: I Have Housing Concerned About Future Housing: No Difficulty Paying Gas/Electric Bills: No Difficulty Paying for Meds: No Currently Unemployed: No Education: Bachelor's Degree Difficulty w/ Childcare or Family Care: No Living arrangements: with family Additional living arrangements comments: Lives with and 2 children in [place]. 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 Spiritual care concerns: No Meds Home Medications and Allergies Home Medications Medication Instructions Recorded Confirmed Type Saccharomyces boulardii 250 mg 250 mg PO BID 06/22/21 10/26/23 History capsule (Daily Probiotic (S. boulardii)) cyanocobalamin (vitamin B-12) 1,000 mcg PO DAILY 06/22/21 10/26/23 History 1,000 mcg capsule tramadol 50 mg tablet 50 mg PO Q6H PRN Pain 06/22/21 10/26/23 History levonorgestrel 21 mcg/24 hr (up to 1 device intrauterine ONCE 03/29/23 10/26/23 History 8 years) 52 mg intrauterine device (Mirena) methocarbamol 750 mg tablet 1,500 mg PO TID PRN vaginal spasms 03/29/23 10/26/23 Rx #90 tabs Nextstellis 3 mg PO DAILY 10/18/23 10/26/23 History crisaborole 2 % topical ointment 60 applic topical HS 10/18/23 10/26/23 History (Eucrisa) semaglutide (weight loss) 1 mg/0.5 1 mg subcut WEEKLY 10/18/23 10/26/23 History mL subcutaneous pen injector Allergies Allergy/AdvReac Type Severity Reaction Status Date / Time adhesive Allergy Unknown RASH Verified 10/26/23 11:29 latex Allergy Unknown Rash Verified 10/26/23 11:29 Vital Signs Vital Signs - 24 hr 10/26/23 11:18 Temperature 36.5 C Pulse Rate 73 Respiratory Rate 16 Blood Pressure 112/69 Pulse Oximetry 99 Oxygen Delivery Room Air Assessment and Plan Assessment and plan (1) Metrorrhagia: Code(s): N92.1 - Excessive and frequent menstruation with irregular cycle Status: Acute Assessment and Plan: A: Metrorrhagia, refractory to conservative management. P: We have reviewed medical as well as surgical treatment options, and she prefers the latter. Specifically, I have offered her a hysteroscopy, removal of IUD, dilation and sharp curettage, and endometrial ablation. She understands risks of surgery to include risks of anesthesia, risks of pain, infection, bleeding, blood products, thromboembolic phenomena and damage to adjacent structures such as bowel, bladder, ureters, blood vessels and nerves. She understands
--- NOTE | 2023-10-26 12:03 | WPDHPUPDATE1 ---
History and Physical Update Update Date/Time: 10/26/23 12:03 History and Physical has been reviewed, including an updated exam of the patient. There are NO changes in the patient's condition. Risks, benefits, and alternatives have been discussed and questions answered. Patient agrees to proceed with procedure.
--- NOTE | 2023-10-26 12:24 | WPDANESEPPF ---
Anes - Initial Pre Proc Eval Procedure: Operation Date: 10/26/23 13:00 Proposed Procedures p Hysteroscopy Dilation and Curettage with Shayla Endometrial Ablation - Joe Avila MD Date/Time: 10/26/23 12:24 Surgeon: Joe Avila MD Pre Op Diagnosis: irregular bleeding,Dysmenorrhea Patient Data Age: 37 Gender: F Height: 1.52 m Weight: 86.5 kg Last Vital Signs Temp 36.5 C 10/26/23 11:18 Pulse 73 10/26/23 11:18 Resp 16 10/26/23 11:18 BP 112/69 10/26/23 11:18 Pulse Ox 99 10/26/23 11:18 O2 Del Method Room Air 10/26/23 11:18 Allergies Allergy/AdvReac Type Severity Reaction Status Date / Time adhesive Allergy Unknown RASH Verified 10/26/23 11:29 latex Allergy Unknown Rash Verified 10/26/23 11:29 Home Medications Medication Instructions Recorded Confirmed Type Saccharomyces boulardii 250 mg 250 mg PO BID 06/22/21 10/26/23 History capsule (Daily Probiotic (S. boulardii)) cyanocobalamin (vitamin B-12) 1,000 mcg PO DAILY 06/22/21 10/26/23 History 1,000 mcg capsule tramadol 50 mg tablet 50 mg PO Q6H PRN Pain 06/22/21 10/26/23 History levonorgestrel 21 mcg/24 hr (up to 1 device intrauterine ONCE 03/29/23 10/26/23 History 8 years) 52 mg intrauterine device (Mirena) methocarbamol 750 mg tablet 1,500 mg PO TID PRN vaginal spasms 03/29/23 10/26/23 Rx #90 tabs Nextstellis 3 mg PO DAILY 10/18/23 10/26/23 History crisaborole 2 % topical ointment 60 applic topical HS 10/18/23 10/26/23 History (Eucrisa) semaglutide (weight loss) 1 mg/0.5 1 mg subcut WEEKLY 10/18/23 10/26/23 History mL subcutaneous pen injector Patient hx anesthesia problems: none Family hx anesthesia problems: none Results Review: All pre-operative results and documents have been reviewed as part of the pre-operative evaluation. [facility] Past Medical History Medical History Acid reflux Cyclical pelvic pain History of cystogram Surgical History Surgical History H/O cystoscopy History of 2 sections History of laparotomy (05/19/22) History of laser assisted in situ keratomileusis History of lithotripsy History of spinal surgery Coccygectomy. History of surgical removal of ganglion cyst Left wrist. History of tonsillectomy S/P laparoscopy Family History Family History Mother Cervical cancer Father Diabetes mellitus Social History Social History Social History: Surrogate medical decision maker: Cubacarmela Gamino, spouse. Code status: Full code. Smoking status: Never smoker Second hand tobacco smoke exposure: No Alcohol intake: current Drinks per week: 0 Alcohol use details: very rare/ social Substance use: never Substance use type: does not use Lack of Transportation: No Lack of Food: Never True Current Housing: I Have Housing Concerned About Future Housing: No Difficulty Paying Gas/Electric Bills: No Difficulty Paying for Meds: No Currently Unemployed: No Education: Bachelor's Degree Difficulty w/ Childcare or Family Care: No Living arrangements: with family Additional living arrangements comments: Lives with and 2 children in [place]. 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 Spiritual care concerns: No Anes - Eval Final PreProcedure Day of Procedure 10/26/23 12:24 Patient weight: obese Heart: regular rate and rhythm Lungs: clear to auscultation Airway: Mallampati scale class II Neurological: alert and oriented Last oral intake: >/= 8 hours ASA classification: II Emergent: no Anesthetic plan: proceed Anesthesia type and monitoring: general GIVS and standard monitoring Results Review: All pre-operative results and documents have been reviewed as part of the pre-
[2023-10-26] MEDS: KETOROLAC 15 MG/ML VIAL (*BKC) IV PUSH (12:45)
[2023-10-26] MEDS: LIDOCAINE HCL 1% LOCAL INJ 20 ML VIAL 10 ML INFILTRATE (12:55)
[2023-10-26 13:31] VITALS: BP 102/49; PULSE 83; RESP 14; O2SAT 99
--- NOTE | 2023-10-26 13:36 | P.OP_ITS ---
Procedure Note - Detailed Date of Procedure 10/26/23 Pre-op Diagnosis Metrorrhagia Post-op Diagnosis Same Procedure Performed Removal of IUD Hysteroscopy Removal of submucous myoma Dilation and sharp curettage Endometrial ablation Surgeon Joe Avila MD Anesthesia MAC and Local (1% lidocaine) Findings There was an apparent anterior fundal submucous myoma. Otherwise, the endometrial cavity was unremarkable. Both tubal ostia were seen. Description of Procedure The patient was taken to the operating room where she was prepared and draped in the usual sterile fashion in the dorsal lithotomy position. The bladder was drained with a red rubber catheter. A sterile speculum was placed into the vagina. The IUD strings were grasped with a ring forceps. The IUD was removed, intact, and discarded. The anterior lip of the cervix was grasped with single-t ooth tenaculum. Ten mL of 1% lidocaine was administered in a paracervical block. The cervix was then gently dilated using Hegar dilators until a 7 mm dilator could be passed. Hysteroscopy was performed using sterile saline as a distention medium. Findings are as noted above. The Aveta Flex blade was advanced and the submucous myoma shaved down nearly flush with the endometrial wall. Sharp curettage was then performed, and endometrial curettings were collected on a Telfa pad and passed off to be sent to pathology. Finally, the the Shayla device was advanced and endometrial ablation commenced without difficulty. The device was withdrawn and a second look was taken using the hysteroscope. Excellent coverage of the endometrial cavity was noted. The tenaculum was removed. Hemostasis was excellent. Sponge, lap, needle and instrument counts were correct. The patient was awakened and taken to the recovery room in stable condition. I was present and scrubbed through the entire procedure. Implants None Estimated Blood Loss 10 Drains No Packing No Pathology Yes (Endometrial curettings and submucous myoma) Complications None Condition Stable Disposition PACU
[2023-10-26 14:00] VITALS: BP 102/59; PULSE 65; RESP 20
[2023-10-26] MEDS: oxyCODONE HCL (*CRX) 5 MG TAB IR PO (14:01)
[2023-10-26 14:30] VITALS: BP 102/67; PULSE 68; RESP 20
[2023-10-26 14:45] VITALS: BP 100/62; PULSE 60; RESP 20
[2023-10-26 17:04] LABS: BEDSIDEPREGUCG Negative
== END 2023-10-26 14:50 | disposition home or self-care (01) ==
PROVIDERS: PCP Internal Medicine; Visit Provider Obstetrics & Gynecology
PROC: 0U5B8ZZ Destruction of Endometrium, Via Natural or Artificial Opening Endoscopic (ICD-10-PCS; CPT 58563; principal; 2023-10-26 13:00)
DX: N92.1 Excessive and frequent menstruation with irregular cycle (principal); D25.0 Submucous leiomyoma of uterus; Z79.85 Long-term (current) use of injectable non-insulin antidiabetic drugs; E66.9 Obesity, unspecified; Z68.37 Body mass index [BMI] 37.0-37.9, adult
CPT/HCPCS: 58563; 58561; 88305; A9270; J1100; J1885; J2250; J2405; J2704; J3010; J7120

== ENCOUNTER 2023-12-08 22:32 | Inpatient (IN) | payer OTHER, SELFPAY ==
--- NOTE | ~2023-12-08 | XR_ITS ---
EXAMINATION: XR cystogram DATE: 12/12/2023 12:29 INDICATION: Bladder injury. TECHNIQUE: Water-soluble contrast was gravity-infused through the patient's Cavazos catheter. Multiple fluoroscopic images were obtained. Fluoroscopy exposure time was 2.3 minutes. The total number of robe ges was 8. COMPARISON: CT abdomen and pelvis 12/10/2023 FINDINGS: There is no extraluminal leakage of contrast. No ureteral reflux. IMPRESSION: 1. No extraluminal leakage of contrast. Reviewed, dictated and finalized at location A.
--- NOTE | ~2023-12-08 | CT_ITS ---
Non-contrast CT scan of the Abdomen and Pelvis Clinical indication: Possible cystotomy Technique: 2.5 mm axial scans were obtained through the abdomen and pelvis without intravenous or or al contrast. Dose reduction technique was used on this scan by utilizing automated exposure control a nd iterative reconstruction technique. The dose-length product (DLP) was 1603.86 mGy-cm. COMPARISON: 12/09/2023 Findings: Images through the lung bases reveal mild bibasilar atelectatic changes. There is no evidence of renal or ureteral calculi. The kidneys and the ureters are nondilated. The liver, spleen, pancreas, and adrenals appear normal. Gallstones are present. There is no aortic a neurysm. There is no evidence of bowel obstruction. Images through the pelvis were performed. Urinary bladder collapsed around Cavazos catheter. Small to m oderate abdominopelvic ascites present. Small amount of pneumoperitoneum present in the pelvis. There is also small amount of soft tissue gas along the inferior, anterior abdominal wall. Status post int erval hysterectomy. Impression: Status post interval hysterectomy, with small to moderate abdominopelvic ascites and small amount of free air in the pelvis, which is likely postoperative in nature. Urinary bladder collapsed around a Cavazos catheter. If there is concern for bladder perforation, then CT cystogram would be advised for further evaluation. Cholelithiasis. Reviewed, dictated and finalized at location . Impression: Status post interval hysterectomy, with small to moderate abdominopelvic ascite s and small amount of free air in the pelvis, which is likely postoperative in nature. Urinary bladder collapsed around a Cavazos catheter. If there is concern for blad kaylen perforation, then CT cystogram would be advised for further evaluation. Cholelithiasis.
--- NOTE | ~2023-12-08 | US_ITS ---
EXAMINATION: US venous doppler [facility] DATE: 12/09/2023 09:20 INDICATION: Left lower limb pain TECHNIQUE: Grayscale ultrasound images without and with compression and Doppler ultrasound images of the left lower extremity veins were obtained. COMPARISON: None. FINDINGS: The visualized portions of left common femoral vein, profunda (deep) femoral vein, femoral vein, popl iteal vein, peroneal veins, posterior tibial veins, gastrocnemius vein and proximal to mid greater sa phenous vein are patent. IMPRESSION: 1. No deep venous thrombosis in the left lower limb. Reviewed, dictated and finalized at location A.
--- NOTE | ~2023-12-08 | CT_ITS ---
CT of the Abdomen and Pelvis: Indication: Abdominal pain Technique: 2.5 mm axial scans were obtained through the abdomen and pelvis following intravenous adm inistration of 100 cc of Omnipaque 350. Dose reduction technique was used on this scan by utilizing a utomated exposure control and iterative reconstruction technique. The dose-length product (DLP) was 7 63.05 mGy-cm. COMPARISON: 03/02/2023 Findings: Scans through the lung bases are unremarkable. The liver, spleen, pancreas, gallbladder, adrenals and kidneys are within normal limits. No evidence of aortic aneurysm. No lymphadenopathy. No bowel obstruction or bowel wall thickening. There is no evidence to suggest acute appendicitis. Images through the pelvis were performed. Urinary bladder unremarkable. Suspected fibroid towards the fundus. No other adnexal mass seen. No ascites. Impression: Probable uterine fibroid, otherwise unremarkable exam. Reviewed, dictated and finalized at [facility]. Impression: Probable uterine fibroid, otherwise unremarkable exam.
--- NOTE | ~2023-12-08 | XR_ITS ---
Supine and upright views of the abdomen Clinical history: Bladder extravasation Findings: Bowel gas pattern is nonspecific. No evidence for obstruction or free air. Cavazos catheter a nd small amount of contrast are present in the urinary bladder. No definite evidence of bladder extra vasation. No abnormal mass lesion or calcification is seen. Osseous structures are intact. Impression: Cavazos catheter and small amount of contrast in urinary bladder. No gross bladder extravasation seen o n this exam. Consider CT cystogram for further evaluation. Reviewed, dictated and finalized at location M. Impression: Cavazos catheter and small amount of contrast in urinary bladder. No gross bladde r extravasation seen on this exam. Consider CT cystogram for further evaluation .
[2023-12-08 22:50] VITALS: BP 148/93; PULSE 114; RESP 15; TEMP 36.4; O2SAT 99
[2023-12-08 23:04] LABS: Basophils Absolute Auto 0.1 K/mm3 (0.0-0.1); Basophils Percent Auto 0.5 % (0.2-1.2); Eosinophils Absolute Auto 0.3 K/mm3 (0-0.3); Eosinophils Percent Auto 2.1 % (0-4.4); Hemoglobin 10.7 g/dL (12.0-15.0); Immature Granulocyte Absolute 0.08 K/mm3 (0.00-0.031); Immature Granulocyte Percent A 0.6 % (0-0.5); Lymphocytes Percent Auto 34.3 % (18.3-44.2); Mean Corpuscular HGB Conc 33.4 g/dl (32-36); Mean Corpuscular Volume 86.7 fl (80-100); Mean Platelet Volume 10.3 fl (7.4-10.4); Monocytes Absolute Auto 0.6 K/mm3 (0.1-0.6); Monocytes Percent Auto 4.7 % (2.6-8.5); Neutrophils Absolute Auto 7.6 K/mm3 (1.3-6.7); Neutrophils Percent Auto 57.8 % (45.5-73.1); Platelet Count Result 313 k/mm3 (150-375); Red Blood Count 3.69 M/mm3 (4.2-5.4); Red Cell Distribution Width 13.7 % (11.5-14.5); White Blood Count 13.1 K/mm3 (4.5-10.0)
[2023-12-08 23:15] LABS: Prothrombin Time 13.9 Seconds (11.1-14.7)
[2023-12-08 23:16] LABS: Alanine Aminotransferase 14 U/L (6-35); Albumin Level 4.1 g/dL (3.5-5.1); Alkaline Phosphatase 64 U/L (38-126); Anion Gap 10 mmol/L (4-12); Aspartate Amino Transferase 21 U/L (14-36); Bilirubin,Total 0.1 mg/dL (0.2-1.3); Blood Urea Nitrogen 20 mg/dL (7-17); Carbon Dioxide 23 mmol/L (22-30); Chloride 103 mmol/L (98-107); Estimated CRCL calculation 105 ml/min; Estimated Glomerular Filt Rate > 60; Glucose 123 mg/dL (65-110); Partial Thromboplastin Time 26.8 Seconds (22.3-36.8); Sodium 136 mmol/L (137-145)
[2023-12-09] VITALS (21 sets, daily range): BP systolic 102–142; BP diastolic 49–91; PULSE 90–128; RESP 14–20; TEMP 36.1–37.5; O2SAT 97–100
[2023-12-09] MEDS: KETOROLAC 15 MG/ML VIAL (*BKC) IV PUSH ×2 (01:58→11:22)
[2023-12-09] MEDS: SODIUM CHLORIDE 0.9% IV 1,000 ML 999 ML IV CONT ×2 (01:58→03:18)
--- NOTE | 2023-12-09 02:20 | ED.FEMALEGU ---
HPI - Female Genitourinary General Chief complaint: Vaginal Bleeding <Virginia Sheppard APRN - Last Filed: 12/09/23 04:00> Stated complaint: vaginal bleeding <Virginia Sheppard APRN - Last Filed: 12/09/23 04:00> Time Seen by Provider: 12/09/23 01:04 <Virginia Sheppard APRN - Last Filed: 12/09/23 04:00> Source: patient <Virginia Sheppard APRN - Last Filed: 12/09/23 04:00> Mode of arrival: ambulatory <Virginia Sheppard APRN - Last Filed: 12/09/23 04:00> Limitations: no limitations <Virginia Sheppard APRN - Last Filed: 12/09/23 04:00> History of Present Illness HPI Narrative: Pt is a 38-year-old female who presents to the ER with complaints of heavy vaginal bleeding. She reports she started her period on 11/23/23. Her OBGYN put her on TXA approximate 1 1/2 weeks ago, but it did not relieve the heavy vaginal bleeding. Pt endorses lower abdominal pain, especially in the RLQ. She reports she is going through a pad every 1/2 hour. Pt contacted her OBGYN and he advised her to come into the ER. Pt denies chest pain, shortness of breath, or lower extremity pain. <Virginia Sheppard APRN - Last Filed: 12/09/23 04:00> MD elicited complaint: vaginal bleeding <Virginia Sheppard APRN - Last Filed: 12/09/23 04:00> Related Data Home medications: Home Medications Medication Instructions Recorded Confirmed Saccharomyces boulardii 250 mg 250 mg PO BID 06/22/21 10/26/23 capsule (Daily Probiotic (S. boulardii)) cyanocobalamin (vitamin B-12) 1,000 mcg PO DAILY 06/22/21 10/26/23 1,000 mcg capsule crisaborole 2 % topical ointment 60 applic topical HS 10/18/23 10/26/23 (Eucrisa) semaglutide (weight loss) 1 mg/0.5 1 mg subcut WEEKLY 10/18/23 10/26/23 mL subcutaneous pen injector <Virginia Sheppard APRN - Last Filed: 12/09/23 04:00> Allergies/Adverse reactions: Allergies Allergy/AdvReac Type Severity Reaction Status Date / Time adhesive Allergy Unknown RASH Verified 10/26/23 11:29 latex Allergy Unknown Rash Verified 10/26/23 11:29 <Virginia Sheppard APRN - Last Filed: 12/09/23 04:00> Review of Systems Review of Systems: All systems reviewed & are unremarkable except as noted in HPI and below <Virginia Sheppard APRN - Last Filed: 12/09/23 04:00> [facility] Past Medical History Medical History: Medical History Acid reflux Cyclical pelvic pain History of cystogram <Virginia Sheppard APRN - Last Filed: 12/09/23 04:00> Surgical History Surgical History: Surgical History H/O cystoscopy History of 2 sections History of laparotomy (05/19/22) History of laser assisted in situ keratomileusis History of lithotripsy History of spinal surgery Coccygectomy. History of surgical removal of ganglion cyst Left wrist. History of tonsillectomy S/P laparoscopy <Virginia Sheppard APRN - Last Filed: 12/09/23 04:00> Family History Family History: Family History Mother Cervical cancer Father Diabetes mellitus <Virginia Sheppard APRN - Last Filed: 12/09/23 04:00> Social History Social History: Social History Social History: Surrogate medical decision maker: [place] Gamino, spouse. Code status: Full code. Smoking status: Never smoker Second hand tobacco smoke exposure: No Alcohol intake: current Drinks per week: 0 Alcohol use details: very rare/ social Substance use: never Substance use type: does not use Lack of Transportation: No Lack of Food: Never True Current Housing: I Have Housing Concerned About Future Housing: No Difficulty Paying Gas/Electric Bills: No Difficulty Paying for Meds: No Currently Unemployed: No Education: Bachelor's Degree Difficulty
[2023-12-09 02:45] LABS: BEDSIDEPREGUCG Negative
[2023-12-09] MEDS: MORPHINE SULFATE (*CRX) 2 MG/ML INJ IV PUSH (03:38)
[2023-12-09] MEDS: TRANEXAMIC ACID 1,000MG/ISO100 1,000 MG/100 ML BAG 200 MG IVPB (03:43)
[2023-12-09] MEDS: ONDANSETRON INJ 4 MG/2 ML VIAL IV PUSH (04:16)
[2023-12-09] MEDS: DEXTROSE 5%/0.45% SOD CHL 1,000 ML 125 ML IV CONT ×3 (05:15→23:50)
[2023-12-09 06:34] LABS: Hemoglobin 7.9 g/dL (12.0-15.0)
--- NOTE | 2023-12-09 08:51 | PM.IMHP ---
H&P: HPI History of Present Illness Date/Time: 12/09/23 08:51 Chief Complaint: Heavy bleeding Narrative: 38 y/o with a fibroid uterus and heavy, irregular vaginal bleeding. She had an endometrial ablation and removal of submucous myoma recently, but bleeding has continued to be problematic. She has tried Lysteda recently, and is currently taking a combined oral contraceptive. She phoned me yesterday passing palm sized clots for several hours, so I asked her to go the ED. In the ED she was tachycardic with a Hgb of 10. She was admitted for observation and her hgb dropped to 7.9. Bleeding has tapered after a dose of TXA 1 g IV. She also mentions she has a tightness behind her left knee. Review of Systems Review of Systems: All systems reviewed & are unremarkable except as noted in HPI and below PMFSH Past Medical History Medical History Acid reflux Cyclical pelvic pain History of cystogram Surgical History Surgical History H/O cystoscopy History of 2 sections History of laparotomy (05/19/22) History of laser assisted in situ keratomileusis History of lithotripsy History of spinal surgery Coccygectomy. History of surgical removal of ganglion cyst Left wrist. History of tonsillectomy S/P laparoscopy Family History Family History Mother Cervical cancer Father Diabetes mellitus Social History Social History Social History: Surrogate medical decision maker: [place] Gamino, spouse. Code status: Full code. Smoking status: Never smoker Second hand tobacco smoke exposure: No Alcohol intake: current Drinks per week: 0 Alcohol use details: very rare/ social Substance use: never Substance use type: does not use Lack of Transportation: No Lack of Food: Never True Current Housing: I Have Housing Concerned About Future Housing: No Difficulty Paying Gas/Electric Bills: No Difficulty Paying for Meds: No Currently Unemployed: No Education: Bachelor's Degree Difficulty w/ Childcare or Family Care: No Living arrangements: with family Additional living arrangements comments: Lives with and 2 children in [place]. 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 Spiritual care concerns: No Meds Home Medications and Allergies Home Medications Medication Instructions Recorded Confirmed Type Saccharomyces boulardii 250 mg 250 mg PO BID 06/22/21 10/26/23 History capsule (Daily Probiotic (S. boulardii)) cyanocobalamin (vitamin B-12) 1,000 mcg PO DAILY 06/22/21 10/26/23 History 1,000 mcg capsule methocarbamol 750 mg tablet 1,500 mg PO TID PRN vaginal spasms 03/29/23 10/26/23 Rx #90 tabs crisaborole 2 % topical ointment 60 applic topical HS 10/18/23 10/26/23 History (Eucrisa) semaglutide (weight loss) 1 mg/0.5 1 mg subcut WEEKLY 10/18/23 10/26/23 History mL subcutaneous pen injector oxycodone-acetaminophen 5 mg-325 1 - 2 tablet PO Q6H PRN pain #30 10/26/23 Rx mg tablet (Percocet) tabs Allergies Allergy/AdvReac Type Severity Reaction Status Date / Time adhesive Allergy Unknown RASH Verified 10/26/23 11:29 latex Allergy Unknown Rash Verified 10/26/23 11:29 Vital Signs Vital Signs - 24 hr 12/08/23 22:50 12/09/23 00:47 12/09/23 00:52 Temperature 36.4 C 36.6 C Pulse Rate 114 H 113 H 103 H Respiratory Rate 15 18 Blood Pressure 148/93 H 140/91 H 125/69 Pulse Oximetry 99 97 Oxygen Delivery Room Air 12/09/23 00:53 12/09/23 00:54 12/09/23 02:59 Temperature 36.6 C Pulse Rate 109 H 128 H 112 H Respiratory Rate 19 Blood Pressure 137/87 107/66 142/90 H Pulse Oximetry 100 Oxygen Delivery 12/09/23 05:25 12/09/23 05:25 Temperature 36.1 C L Pulse Rate 93 Respir
--- NOTE | 2023-12-09 10:30 | PC.NURSE ---
Consents signed for Total Abdominal Hysterectomy with Bilateral Salpingectomy as well as a Transfusion of Blood or Blood Components Consent. Original will be given to OR, Pre-Op RN and then placed on patient's chart.
--- NOTE | 2023-12-09 11:06 | WPDANESEPPF ---
Anes - Initial Pre Proc Eval Procedure: Operation Date: 12/09/23 12:00 Proposed Procedures p Total Abdominal Hysterectomy with Bilateral Salpingectomy - Joe Avila MD Date/Time: 12/09/23 11:06 Surgeon: Joe Avila MD Pre Op Diagnosis: Vaginal bleeding Patient Data Age: 38 Gender: F Height: 1.52 m Weight: 88 kg Last Vital Signs Temp 97.2 F L 12/09/23 08:30 Pulse 95 12/09/23 08:30 Resp 16 12/09/23 08:30 BP 102/49 L 12/09/23 08:30 Pulse Ox 100 12/09/23 08:30 O2 Del Method Room Air 12/09/23 05:25 Allergies Allergy/AdvReac Type Severity Reaction Status Date / Time adhesive Allergy Unknown RASH Verified 12/09/23 11:04 latex Allergy Unknown Rash Verified 12/09/23 11:04 Home Medications Medication Instructions Recorded Confirmed Type Saccharomyces boulardii 250 mg 250 mg PO BID 06/22/21 12/09/23 History capsule (Daily Probiotic (S. boulardii)) cyanocobalamin (vitamin B-12) 1,000 mcg PO DAILY 06/22/21 12/09/23 History 1,000 mcg capsule methocarbamol 750 mg tablet 1,500 mg PO TID PRN vaginal spasms 03/29/23 12/09/23 Rx #90 tabs crisaborole 2 % topical ointment 60 applic topical HS 10/18/23 12/09/23 History (Eucrisa) semaglutide (weight loss) 1 mg/0.5 1 mg subcut WEEKLY 10/18/23 12/09/23 History mL subcutaneous pen injector oxycodone-acetaminophen 5 mg-325 1 - 2 tablet PO Q6H PRN pain #30 10/26/23 12/09/23 Rx mg tablet (Percocet) tabs Laboratory Tests 12/08/23 12/09/23 12/09/23 22:57 02:42 06:28 WBC 13.1 H K/mm3 (4.5-10.0) RBC 3.69 L M/mm3 (4.2-5.4) Hgb 10.7 L g/dL 7.9 L g/dL (12.0-15.0) (12.0-15.0) Hct 32.0 L % 24.0 L % (37.0-47.0) (37.0-47.0) MCV 86.7 fl (80-100) MCH 29.0 pg (26-34) MCHC 33.4 g/dl (32-36) RDW 13.7 % (11.5-14.5) Plt Count 313 k/mm3 (150-375) MPV 10.3 fl (7.4-10.4) Immature Gran % (Auto) 0.6 H % (0-0.5) Neut % (Auto) 57.8 % (45.5-73.1) Lymph % (Auto) 34.3 % (18.3-44.2) Elmore % (Auto) 4.7 % (2.6-8.5) Eos % (Auto) 2.1 % (0-4.4) Baso % (Auto) 0.5 % (0.2-1.2) Lymph # (Auto) 4.50 H K/mm3 (0.9-3.2) Elmore # (Auto) 0.6 K/mm3 (0.1-0.6) Eos # (Auto) 0.3 K/mm3 (0-0.3) Baso # (Auto) 0.1 K/mm3 (0.0-0.1) Abs Immat Gran (auto) 0.08 H K/mm3 (0.00-0.031) Absolute Neuts (auto) 7.6 H K/mm3 (1.3-6.7) Absolute Nucleated RBC 0.000 K/mm3 (0.0-0.012) Nucleated RBC % 0.0 % (0.0-0.2) PT 13.9 Seconds (11.1-14.7) INR 1.0 APTT 26.8 Seconds (22.3-36.8) Sodium 136 L mmol/L (137-145) Potassium 4.0 mmol/L (3.4-5.0) Chloride 103 mmol/L (98-107) Carbon Dioxide 23 mmol/L (22-30) Anion Gap 10 mmol/L (4-12) BUN 20 H D mg/dL (7-17) Creatinine 0.60 L mg/dL (0.7-1.0) Estim Creat Clear Calc 105 ml/min Estimated GFR > 60 (59 - ) Glucose 123 H mg/dL (65-110) Calcium 9.0 mg/dL (8.4-10.2) Total Bilirubin 0.1 L mg/dL (0.2-1.3) AST 21 U/L (14-36) ALT 14 U/L (6-35) Alkaline Phosphatase 64 U/L (38-126) Total Protein 7.0 g/dL (6.3-8.2) Albumin 4.1 g/dL (3.5-5.1) POC Urine HCG, Qual Negative Blood Type A Positive Antibody Screen Negative Screen TNP Baby's Blood Type Not Reportable Baby's SHAKIR Not Reportable Doses of RhIg Required 0 Patient hx anesthesia problems: none Family hx anesthesia problems: none Results Review: All pre-operative results and documents have been reviewed as part of the pre-operative evaluation. [facility] Past Medical History Medical History (
--- NOTE | 2023-12-09 11:07 | PC.NURSE ---
Per Imani Greer RN, patient arrived on the floor from the ER @ 0445 to room 286.
[2023-12-09] MEDS: ACETAMINOPHEN 500 MG TABLET 1000 MG PO (11:22)
[2023-12-09] MEDS: LACTATED RINGERS 1,000 ML 30 ML IV CONT ×2 (11:41→13:43)
--- NOTE | 2023-12-09 11:54 | WPDHPUPDATE1 ---
History and Physical Update Update Date/Time: 12/09/23 11:54 History and Physical has been reviewed, including an updated exam of the patient. There are NO changes in the patient's condition. Risks, benefits, and alternatives have been discussed and questions answered. Patient agrees to proceed with procedure.
--- NOTE | 2023-12-09 13:43 | W.PM.PROC2 ---
Procedure Note - Detailed Date of Procedure 12/09/23 Pre-op Diagnosis Heavy vaginal bleeding Fibroid uterus Post-op Diagnosis Same Procedure Performed Total abdominal hysterectomy with bilateral salpingectomies Surgeon Joe Avila MD Anesthesia General Findings Enlarged uterus. Normal-appearing tubes and ovaries. Description of Procedure The patient was taken to the operating room where general endotracheal anesthesia was administered. She was prepared and draped in the usual sterile fashion in the dorsal supine position. The bladder was drained with Cavazos catheter. She was given cefazolin preoperatively. A Pfannenstiel skin incision was made along the previous scar line and carried through to the underlying layer of the fascia. The fascia was nicked in the midline and the incision extended laterally. The peritoneum was tented and entered sharply. The incision was extended superiorly and inferiorly with good visualization of the bladder. The pelvis was inspected with the findings noted above. The Jassi retractor was placed and bowel packed away with moistened laparotomy sponges. The round ligaments were divided bilaterally and tagged with 0-vicryl. The Fallopian tubes were dissected off the ovaries. The uteroovarian ligaments bilaterally were divided. The anterior and posterior leaves of the broad ligament were divided. The bladder was carefully dissected off the lower uterine segment and cervix. The uterine arteries were divided. The cervix was amputated from the vaginal cuff and the specimen was passed off to be sent to pathology. The vaginal cuff was reapproximated using 0 Vicryl. The pelvis was irrigated with warmed normal saline. The vaginal cuff and pedicles were inspected and found to be hemostatic. The fascial layer was reapproximated with a running subcuticular stitch of 0 Vicryl. The skin was closed with a running subcuticular stitch of 4 0 Vicryl. Dermaflex was applied externally. Sponge, lap, needle and instrument counts were correct. The patient was awakened and taken to the recovery room in stable condition. I was present and scrubbed through the entire procedure. Implants None Estimated Blood Loss 120 Urine Output 500 Drains Yes (Cavazos) Packing No Pathology Yes (Uterus, cervix and bilateral Fallopian tubes) Complications None Condition Stable Disposition PACU
[2023-12-09] MEDS: fentaNYL CITRATE INJ (*CRX) 100 MCG/2 ML VIAL 25 MCG IV PUSH ×7 (14:06→15:12)
--- NOTE | 2023-12-09 14:37 | SUR.PHASEI ---
RN paged Dr. Avila in regards to bloody urine.
[2023-12-09] MEDS: SIMETHICONE 80 MG TAB.CHEW PO ×4 (15:50→23:40)
[2023-12-09] MEDS: MORPHINE SULFATE PCA (*CRX) 30 MG/30 ML SYR IV CONT (16:05)
--- NOTE | 2023-12-09 17:49 | PC.NURSE ---
1520 This patient, Florencia Gamino, was received from PACU on 12/09/23 at 1520. Patient/family oriented to unit policies and routines. 1530 Pharmacy called, RN requested Morphine LEARNING ANALYST medication. 1600 RN received Morphine LEARNING ANALYST medication from pharmacy sales assistant. 1605 Morphine LEARNING ANALYST started.
[2023-12-09] MEDS: ENOXAPARIN 40 MG/0.4 ML SYRINGE SUB-Q (20:37)
[2023-12-10] VITALS (7 sets, daily range): BP systolic 102–122; BP diastolic 60–70; PULSE 90–100; RESP 16–20; TEMP 36.9–37.7; O2SAT 95–99
[2023-12-10 03:52] LABS: Basophils Percent Auto 0.3 % (0.2-1.2); Eosinophils Percent Auto 0.1 % (0-4.4); Hematocrit 22.7 % (37.0-47.0); Hemoglobin 7.3 g/dL (12.0-15.0); Immature Granulocyte Absolute 0.09 K/mm3 (0.00-0.031); Immature Granulocyte Percent A 0.7 % (0-0.5); Lymphocytes Absolute Auto 1.83 K/mm3 (0.9-3.2); Lymphocytes Percent Auto 13.6 % (18.3-44.2); Mean Corpuscular HGB Conc 32.2 g/dl (32-36); Mean Corpuscular Hemoglobin 28.6 pg (26-34); Mean Platelet Volume 10.3 fl (7.4-10.4); Monocytes Absolute Auto 0.8 K/mm3 (0.1-0.6); Monocytes Percent Auto 5.7 % (2.6-8.5); Neutrophils Absolute Auto 10.7 K/mm3 (1.3-6.7); Neutrophils Percent Auto 79.6 % (45.5-73.1); Platelet Count Result 251 k/mm3 (150-375); Red Blood Count 2.55 M/mm3 (4.2-5.4); Red Cell Distribution Width 14.2 % (11.5-14.5); White Blood Count 13.5 K/mm3 (4.5-10.0)
--- NOTE | 2023-12-10 06:09 | PM.GYNPNOP ---
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 P: Transition to PO pain meds. Plan home tomorrow. (2) Menometrorrhagia: Code(s): N92.1 - Excessive and frequent menstruation with irregular cycle Status: Acute Postoperative Procedures: Procedures Operation Date: 12/09/23 12:00 Actual Procedure Side Surgeon p Total Abdominal Hysterectomy with Bilateral Salpingectomy Not Applicable Joe Avila MD Postoperative day: 1 Time Spent With Patient Time with patient: less than 15 minutes DIRECTOR OF CAREER SERVICES- PN:Subj Post-Op Subjective Date/time seen: 12/10/23 06:09 Pain OK today. Exam Narrative: AVSS I/O OK. Excellent urine output. Urine clear. ABD soft, nontender. Incision c/d/i. EXT nontender DIRECTOR OF CAREER SERVICES - PN: Obj Data Vital Signs Vital Signs: Vital Signs - 24 hr 12/09/23 08:30 12/09/23 11:38 12/09/23 13:43 Temperature 36.2 C L 37.2 C 36.1 C L Pulse Rate 95 90 102 H Respiratory Rate 16 16 18 Blood Pressure 102/49 L 120/58 L 124/52 L Pulse Oximetry 100 99 100 Oxygen Delivery Room Air Simple Face Mask Oxygen Flow Rate 10 12/09/23 13:55 12/09/23 14:10 12/09/23 14:25 Temperature 37.5 C Pulse Rate 91 92 96 Respiratory Rate 16 18 15 Blood Pressure 116/68 128/77 131/79 Pulse Oximetry 100 100 97 Oxygen Delivery Simple Face Mask Simple Face Mask Room Air Oxygen Flow Rate 10 10 12/09/23 14:40 12/09/23 14:55 12/09/23 16:05 Temperature 37.3 C Pulse Rate 95 96 Respiratory Rate 16 14 16 Blood Pressure 132/77 139/78 Pulse Oximetry 97 97 99 Oxygen Delivery Room Air Room Air Oxygen Flow Rate 12/09/23 17:05 12/09/23 15:35 12/09/23 18:10 Temperature 36.5 C 36.7 C Pulse Rate 103 H 103 H Respiratory Rate 16 16 18 Blood Pressure 131/76 122/67 Pulse Oximetry 99 99 98 Oxygen Delivery Oxygen Flow Rate 12/09/23 18:10 12/09/23 19:05 12/09/23 23:40 Temperature 37.0 C Pulse Rate 106 H Respiratory Rate 18 16 18 Blood Pressure 124/66 Pulse Oximetry 98 99 98 Oxygen Delivery Oxygen Flow Rate 12/09/23 21:05 12/09/23 23:40 12/10/23 01:30 Temperature Pulse Rate Respiratory Rate 18 20 16 Blood Pressure Pulse Oximetry 98 98 99 Oxygen Delivery Oxygen Flow Rate 12/10/23 03:30 12/10/23 03:30 12/10/23 05:30 Temperature 36.9 C Pulse Rate 96 Respiratory Rate 18 18 20 Blood Pressure 102/60 Pulse Oximetry 98 98 98 Oxygen Delivery Oxygen Flow Rate Intake/Output Intake/Output: Intake & Output 12/07/23 12/08/23 12/09/23 12/10/23 23:59 23:59 23:59 23:59 Intake Total 4649 6 Output Total 3160 1000 Balance 1489 994 Meds/Results Medications: Active Medications Generic Name Dose Route Start Last Admin Trade Name Freq PRN Reason Stop Dose Admin Cyanocobalamin 1,000 mcg 12/10/23 09:00 Cyanocobalamin 1,000 Mcg Tablet PO DAILY VINAY Enoxaparin Sodium 40 mg 12/09/23 21:00 12/09/23 20:37 Enoxaparin 40 Mg/0.4 Ml Syringe SUB-Q 40 mg Q24H VINAY Administration Dextrose/Sodium Chloride 1,000 mls @ 125 mls/hr 12/09/23 15:13 12/09/23 23:50 Dextrose 5% Sodium Chloride 0.45% IV CONT 125 mls/hr .Q8H VINAY Administration Morphine Sulfate 30 mg in 30 mls @ 0 mls/hr 12/09/23 15:13 12/10/23 05:30 Morphine Sulfate [employer] Server IV CONT 0 mg/hr PRN PRN 0 mls/hr INCOME TAX INVESTIGATOR Management Infusion Protocol 0 MG/HR Methocarbamol 1,500 mg 12/09/23 15:13 Methocarbamol 750 Mg Tablet PO TID PRN vaginal spasms Metoclopramide HCl 10 mg 12/09/23 15:13 Metoclopramide Hcl Inj 10 Mg/2 Ml Vial IV PUSH Q6H PRN Nausea Miscellaneous Information 1 each 12/10/23 00:01 Med Rec Order Clarification XX 01/09/24 00:00 CLARIFY VINAY Non-Formulary Medication 60 applic 12/09/23 21:00 Crisaborole [Eucrisa] TOPICAL 01/08/24 20:59
[2023-12-10] MEDS: IBUPROFEN 600 MG TABLET PO ×3 (07:29→20:06)
[2023-12-10] MEDS: SIMETHICONE 80 MG TAB.CHEW PO ×4 (07:30→20:53)
[2023-12-10] MEDS: DOCUSATE SODIUM 100 MG CAPSULE PO ×2 (07:31→20:50)
--- NOTE | 2023-12-10 08:12 | P.PNAN_ITS ---
Anes - Prog Note Post-Op Date/Time: 12/10/23 08:12 Cardiovascular status: normal Respiratory status: normal Airway patency: baseline Mental status: baseline Post-Op hydration status: normal Vital Signs: Last Vital Signs Temp 36.9 C 12/10/23 03:30 Pulse 96 12/10/23 03:30 Resp 20 12/10/23 05:30 BP 102/60 12/10/23 03:30 Pulse Ox 98 12/10/23 05:30 O2 Del Method Room Air 12/09/23 14:55 O2 Flow Rate 10 12/09/23 14:10 Pain Score (VAS): 3 I/O: Intake & Output 12/09/23 12/10/23 12/10/23 23:59 07:59 15:59 Intake Total 1008 6 Output Total 2100 1000 Balance -1092 994 Laboratory Tests 12/10/23 03:45 12/08/23 22:57 12/10/23 03:45 WBC 13.5 H RBC 2.55 L Hgb 7.3 L Hct 22.7 L MCV 89.0 MCH 28.6 MCHC 32.2 RDW 14.2 Plt Count 251 MPV 10.3 Immature Gran % (Auto) 0.7 H Neut % (Auto) 79.6 H Lymph % (Auto) 13.6 L [place] % (Auto) 5.7 Eos % (Auto) 0.1 Baso % (Auto) 0.3 Lymph # (Auto) 1.83 [place] # (Auto) 0.8 H Eos # (Auto) 0.0 Baso # (Auto) 0.0 Abs Immat Gran (auto) 0.09 H Absolute Neuts (auto) 10.7 H Absolute Nucleated RBC 0.000 Nucleated RBC % 0.0 Post-procedural complaints: none Patient Feedback: Patient satisfied with anesthetic care.
[2023-12-10] MEDS: CYANOCOBALAMIN 1,000 MCG TABLET 1000 MCG PO (09:15)
[2023-12-10] MEDS: oxyCODONE/ACETAMINOPHEN (*CRX) 5-325 MG TABLET 1 TABLET PO (09:16)
[2023-12-10] MEDS: oxyCODONE/ACETAMINOPHEN (*CRX) 10-325 MG TABLET 1 TAB PO ×3 (13:05→20:26)
[2023-12-10] MEDS: methocarbamoL 750 MG TABLET 1500 MG PO (17:36)
[2023-12-10] MEDS: PHENAZOPYRIDINE HCL 100 MG TABLET 200 MG PO (17:59)
[2023-12-10] MEDS: DEXTROSE 5%/0.45% SOD CHL 1,000 ML 125 ML IV CONT (19:19)
--- NOTE | 2023-12-10 20:25 | PC.NURSE ---
1845 PT CALLS OUT WITH COMPLAINTS OF INCREASED ABDOMINAL AND BLADDER PAIN. PT STATES THAT SHE HAS ONLY VOIDED 50 CC OF URINE TODAY. PT BLADDER SCANNED, 186 MLS OF URINE NOTED. ORDERS RECEIVED TO PLACE STOUT CATHETER. STOUT CATHETER PLACED, NO URINE RETURN NOTED. STOUT FLUSHED WITH 10 ML NORMAL SALINE. URINE RETURNED BLOODY AND SCANT AMOUNT.
[2023-12-10] MEDS: ENOXAPARIN 40 MG/0.4 ML SYRINGE SUB-Q (20:51)
[2023-12-10] MEDS: NACL 0.9% IRRIGATION POUR BOTTLE 500 ML 1000 ML (22:20)
--- NOTE | 2023-12-10 22:40 | PC.NURSE ---
12/10/[address] Saunders here in room talking and assessing patient.
--- NOTE | 2023-12-10 22:43 | PC.NURSE ---
12/10/2023 at [address] to get [address] done. Patient transferred from bed to wheelchair without difficulty.
--- NOTE | 2023-12-10 23:07 | WPDURCON ---
Assessment and Plan Assessment and plan (1) Postoperative urinary retention: Code(s): N99.89 - Other postprocedural complications and disorders of genitourinary system; R33.8 - Other retention of urine Status: Acute Assessment and Plan: Postoperative urinary retention with suggestion of a very small extraperitoneal bladder leak on CT cystogram (poor quality cystogram) Would recommend leaving the indwelling catheter into we contain a formal cystogram under fluoroscopy on Tuesday morning. If there is a small extraperitoneal leak it would he heals spontaneously with catheter drainage for 7-10 days. Urology Consult Note HPI Date Seen: 12/10/23 Requesting Physician: Joe Avlia MD Primary Care Provider: Bernard Cruz, Consult Narrative Narrative: Florencia Gamino is a pleasant young lady who I became from a with a couple years ago when she had an inadvertent small cystotomy during laparoscopy with lysis of adhesions. This was fixed robotically with no significant long-term sequela. Currently, she is status post abdominal hysterectomy. Immediately postoperative she had an indwelling catheter was draining freely with clear urine. With catheter removal earlier today she had difficulty voiding. Bladder scan showed a volume of approximately 160 cc. With urethral catheter replacement, however, little urine was returned. Irrigation by the nursing staff, again, yielded little return. Upon examination when I arrived I can see that the Cavazos catheter had been placed or slipped into her vagina. With replacement we drained about 400 cc of clear urine. Surprisingly, I did do a CT cystogram and there is perhaps a very small amount of extravasation confined to the pelvis. This cystogram was of poor quality however, performed by myself simply in the CT room. It was not done under fluoroscopy. At the very worst, I think this represents a small extraperitoneal bladder leak. Review of Systems Cardiovascular: Cardiovascular: Denies chest pain, Denies lightheadedness, Denies palpitations and Denies dyspnea Respiratory: Respiratory: Denies dyspnea Gastrointestinal: Gastrointestinal: Denies diarrhea, Denies nausea and Denies vomiting Genitourinary: Genitourinary: Denies hematuria and Denies dysuria Endocrine: Endocrine: Denies palpitations PMFSH Past Medical History Medical History Acid reflux Cyclical pelvic pain History of cystogram Surgical History Surgical History H/O cystoscopy History of 2 sections History of laparotomy (05/19/22) History of laser assisted in situ keratomileusis History of lithotripsy History of spinal surgery Coccygectomy. History of surgical removal of ganglion cyst Left wrist. History of tonsillectomy S/P laparoscopy Family History Family History Mother Cervical cancer Father Diabetes mellitus Social History Social History Social History: Surrogate medical decision maker: [place] Stevenson, spouse. Code status: Full code. Smoking status: Never smoker Second hand tobacco smoke exposure: Yes (Rarely) Alcohol intake: unknown Drinks per week: 0 Alcohol use details: very rare/ social Substance use: never Substance use type: does not use Do You Feel Safe in your Home?: Yes Lack of Transportation: YES Lack of Food: Never True Current Housing: I Have Housing Concerned About Future Housing: No Difficulty Paying Gas/Electric Bills: No Difficulty Paying for Meds: No Currently Unemployed: YES Education: Master's Degree or Higher Difficulty w/ Childcare or Family Care: No Living arrangements: with family Additional living arrangements comments: Lives with and 2 children in [place]. Additional occupa
[2023-12-11] MEDS: IBUPROFEN 600 MG TABLET PO ×3 (01:53→18:03)
--- NOTE | 2023-12-11 05:33 | PM.GYNPNOP ---
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 Now with postop urinary retention. P: Appreciate Dr. Saunders's input. Plan to leave gilman in place today and repeat imaging tomorrow per his recommendation. Otherwise, routine postop care. 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 Tolerating diet. Exam Narrative: AVSS I/O OK ABD soft, nontender, fundus firm. Incision c/d/i. EXT nontender. SCDs in place and functioning. MOISTURE CONDITIONER OPERATOR - PN: Obj Data Vital Signs Vital Signs: Vital Signs - 24 hr 12/10/23 07:24 12/10/23 07:24 12/10/23 07:24 Temperature 37.1 C Pulse Rate 90 Respiratory Rate 16 16 Blood Pressure 109/61 Pulse Oximetry 97 97 Oxygen Delivery Room Air 12/10/23 13:12 12/10/23 13:12 12/10/23 19:22 Temperature 37.0 C 37.7 C H Pulse Rate 91 97 Respiratory Rate 18 16 Blood Pressure 121/69 117/70 Pulse Oximetry 95 96 Oxygen Delivery Room Air 12/10/23 22:55 Temperature 37.0 C Pulse Rate 100 Respiratory Rate 16 Blood Pressure 122/70 Pulse Oximetry 97 Oxygen Delivery Intake/Output Intake/Output: Intake & Output 12/08/23 12/09/23 12/10/23 12/11/23 23:59 23:59 23:59 23:59 Intake Total 4649 3876.4 Output Total 3160 2025 200 Balance 1489 1851.4 -200 Meds/Results Medications: Active Medications Generic Name Dose Route Start Last Admin Trade Name Freq PRN Reason Stop Dose Admin Cyanocobalamin 1,000 mcg 12/10/23 09:00 12/10/23 09:15 Cyanocobalamin 1,000 Mcg Tablet PO 1,000 mcg DAILY VINAY Administration Docusate Sodium 100 mg 12/10/23 09:00 12/10/23 20:50 Docusate Sodium 100 Mg Capsule PO 100 mg Q12HR VINAY Administration Enoxaparin Sodium 40 mg 12/09/23 21:00 12/10/23 20:51 Enoxaparin 40 Mg/0.4 Ml Syringe SUB-Q 40 mg Q24H VINAY Administration Dextrose/Sodium Chloride 1,000 mls @ 125 mls/hr 12/09/23 15:13 12/10/23 23:00 Dextrose 5% Sodium Chloride 0.45% IV CONT Infused .Q8H VINAY Infusion Dextrose/Sodium Chloride 1,000 mls @ 125 mls/hr 12/10/23 19:15 Dextrose 5% Sodium Chloride 0.45% IV CONT .Q8H [facility] Ibuprofen 600 mg 12/10/23 06:12 12/11/23 01:53 Ibuprofen 600 Mg Tablet PO 600 mg Q6H PRN Administration Cramping Methocarbamol 1,500 mg 12/09/23 15:13 12/10/23 17:36 Methocarbamol 750 Mg Tablet PO 1,500 mg TID PRN Administration vaginal spasms Metoclopramide HCl 10 mg 12/09/23 15:13 Metoclopramide Hcl Inj 10 Mg/2 Ml Vial IV PUSH Q6H PRN Nausea Miscellaneous Information 1 each 12/10/23 00:01 Please Send Down Patient Home Supply Of Crisaborole [Eucrisa] 2 % Ointment For Pharmacy Ve XX 01/09/24 00:00 CLARIFY [facility] Non-Formulary Medication 60 applic 12/09/23 21:00 Crisaborole [Eucrisa] TOPICAL 01/08/24 20:59 HS [facility] Ondansetron HCl 4 mg 12/09/23 15:13 Ondansetron Inj 4 Mg/2 Ml Vial IV PUSH Q6H PRN Nausea Oxycodone/Acetaminophen 1 tablet 12/09/23 15:13 12/10/23 09:16 Oxycodone/Acetaminophen (*Crx) 5-325 Mg Tablet PO 1 tablet Q4H PRN Administration Pain Rated 4-6 Oxycodone/Acetaminophen 1 tab 12/09/23 15:13 12/10/23 20:26 Oxycodone/Acetaminophen (*Crx) 10-325 Mg Tablet PO 1 tab Q4H PRN Administration Pain Rated 7-10 Phenazopyridine HCl 200 mg 12/10/23 22:00 12/10/23 17:59 Phenazopyridine Hcl 100 Mg Tablet PO 200 mg Q8HR VINAY Administration Simethicone 80
[2023-12-11 06:35] VITALS: BP 111/55; PULSE 92; RESP 18; TEMP 37; O2SAT 96
[2023-12-11] MEDS: PHENAZOPYRIDINE HCL 100 MG TABLET 200 MG PO ×3 (06:35→21:56)
--- NOTE | 2023-12-11 10:01 | WPDUROPN2 ---
Progress Note: A&P Assessment and Plan (1) Postoperative urinary retention: Code(s): N99.89 - Other postprocedural complications and disorders of genitourinary system; R33.8 - Other retention of urine Status: Acute Assessment and Plan: Repeat cystogram tomorrow morning to exclude bladder injury Will start Flomax for postoperative urinary retention and plan voiding trial tomorrow morning Subjective Subjective Date/Time Seen: 12/11/23 10:01 Interval history: Comfortable, tolerating catheter. Urine clear Review of Systems Review of Systems: All systems reviewed & are unremarkable except as noted in HPI and below Exam Const: General: no acute distress Resp: Effort & Inspection: normal respiratory effort GI: Inspection: non-distended GI Palp: No abdominal tenderness and No Guarding due to palpation present (GI) Auscultation: normal bowel sounds Urinary Catheter: Urinary Catheter: patent and draining and urine clear Objective Data Vital Signs Vital Signs: Vital Signs - 24 hr 12/10/23 13:12 12/10/23 13:12 12/10/23 19:22 Temperature 98.6 F 99.8 F H Pulse Rate 91 97 Respiratory Rate 18 16 Blood Pressure 121/69 117/70 Pulse Oximetry 95 96 Oxygen Delivery Room Air 12/10/23 22:55 Temperature 98.6 F Pulse Rate 100 Respiratory Rate 16 Blood Pressure 122/70 Pulse Oximetry 97 Oxygen Delivery Intake/Output Intake/Output: Intake & Output 12/08/23 12/09/23 12/10/23 12/11/23 23:59 23:59 23:59 23:59 Intake Total 4649 3876.4 Output Total 3160 2025 200 Balance 1489 1851.4 -200 Meds/Results Medications: Active Medications Generic Name Dose Route Start Last Admin Trade Name Freq PRN Reason Stop Dose Admin Cyanocobalamin 1,000 mcg 12/10/23 09:00 12/10/23 09:15 Cyanocobalamin 1,000 Mcg Tablet PO 1,000 mcg DAILY VINAY Administration Docusate Sodium 100 mg 12/10/23 09:00 12/10/23 20:50 Docusate Sodium 100 Mg Capsule PO 100 mg Q12HR VINAY Administration Enoxaparin Sodium 40 mg 12/09/23 21:00 12/10/23 20:51 Enoxaparin 40 Mg/0.4 Ml Syringe SUB-Q 40 mg Q24H VINAY Administration Dextrose/Sodium Chloride 1,000 mls @ 125 mls/hr 12/09/23 15:13 12/10/23 23:00 Dextrose 5% Sodium Chloride 0.45% IV CONT Infused .Q8H VINAY Infusion Dextrose/Sodium Chloride 1,000 mls @ 125 mls/hr 12/10/23 19:15 Dextrose 5% Sodium Chloride 0.45% IV CONT .Q8H [facility] Ibuprofen 600 mg 12/10/23 06:12 12/11/23 01:53 Ibuprofen 600 Mg Tablet PO 600 mg Q6H PRN Administration Cramping Methocarbamol 1,500 mg 12/09/23 15:13 12/10/23 17:36 Methocarbamol 750 Mg Tablet PO 1,500 mg TID PRN Administration vaginal spasms Metoclopramide HCl 10 mg 12/09/23 15:13 Metoclopramide Hcl Inj 10 Mg/2 Ml Vial IV PUSH Q6H PRN Nausea Miscellaneous Information 1 each 12/10/23 00:01 Please Send Down Patient Home Supply Of Crisaborole [Eucrisa] 2 % Ointment For Pharmacy Ve XX 01/09/24 00:00 CLARIFY [facility] Non-Formulary Medication 60 applic 12/09/23 21:00 Crisaborole [Eucrisa] TOPICAL 01/08/24 20:59 [facility] Ondansetron HCl 4 mg 12/09/23 15:13 Ondansetron Inj 4 Mg/2 Ml Vial IV PUSH Q6H PRN Nausea Oxycodone/Acetaminophen 1 tablet 12/09/23 15:13 12/10/23 09:16 Oxycodone/Acetaminophen (*Crx) 5-325 Mg Tablet PO 1 tablet Q4H PRN Administration Pain Rated 4-6 Oxycodone/Acetaminophen 1 tab 12/09/23 15:13 12/10/23 20:26 Oxycodone/Acetaminophen (*Crx) 10-325 Mg Tablet PO 1 tab Q4H PRN Administration Pain Rated 7-10 Phenazopyridine HCl 200 mg 12/10/23 22:00 12/11/23 06:35 Phenazopyridine Hcl 100 Mg Tablet PO 200 mg Q8HR VINAY Administration Simethicone 80 mg 12/09/23 16:24 12/10/23 20:53 Simethicone 80 Mg Tab.Chew PO 12/12/23 16:17 80 mg Q2H PRN Administration Gas Discomfort Radiology Results: ITS Impressions Venous Doppler Study 12/09/23
[2023-12-11] MEDS: oxyCODONE/ACETAMINOPHEN (*CRX) 10-325 MG TABLET 1 TAB PO ×2 (10:54→14:01)
[2023-12-11] MEDS: SIMETHICONE 80 MG TAB.CHEW PO ×2 (11:06→18:02)
[2023-12-11] MEDS: CYANOCOBALAMIN 1,000 MCG TABLET 1000 MCG PO (13:59)
[2023-12-11 19:17] VITALS: BP 116/65; PULSE 101; RESP 16; TEMP 36.9; O2SAT 97
[2023-12-11] MEDS: DOCUSATE SODIUM 100 MG CAPSULE PO (21:41)
[2023-12-11] MEDS: ENOXAPARIN 40 MG/0.4 ML SYRINGE SUB-Q (21:42)
[2023-12-11] MEDS: LORATADINE 10 MG TABLET PO (21:49)
[2023-12-11] MEDS: TAMSULOSIN HCL 0.4 MG CAPSULE PO (21:56)
[2023-12-12] MEDS: IBUPROFEN 600 MG TABLET PO ×2 (00:35→06:55)
[2023-12-12] MEDS: DOCUSATE SODIUM 100 MG CAPSULE PO ×2 (06:55→06:58)
[2023-12-12] MEDS: SIMETHICONE 80 MG TAB.CHEW PO (06:55)
[2023-12-12] MEDS: CYANOCOBALAMIN 1,000 MCG TABLET 1000 MCG PO (07:03)
[2023-12-12] MEDS: PHENAZOPYRIDINE HCL 100 MG TABLET 200 MG PO ×2 (07:04→14:53)
[2023-12-12 08:00] VITALS: BP 111/69; PULSE 102; RESP 17; TEMP 36.4; O2SAT 96
[2023-12-12] MEDS: oxyCODONE/ACETAMINOPHEN (*CRX) 5-325 MG TABLET 1 TABLET PO ×2 (11:39→16:04)
[2023-12-12] MEDS: methocarbamoL 750 MG TABLET 1500 MG PO (11:40)
--- NOTE | 2023-12-12 12:51 | WPDUROPN2 ---
Progress Note: A&P Assessment and Plan (1) Postoperative urinary retention: Code(s): N99.89 - Other postprocedural complications and disorders of genitourinary system; R33.8 - Other retention of urine Status: Acute Assessment and Plan: Repeat cystogram completed today is unremarkable; no concerns for bladder injury Proceed with gilman catheter removal and void trial today. Check bladder scan after first void Started on tamsulosin for postoperative urinary retention; would continue for a short course following discharge Okay for discharge from urologic standpoint once voiding Subjective Subjective Date/Time Seen: 12/12/23 12:51 Interval history: Florencia is doing fairly well today. She is tolerating her gilman catheter which is draining clear yellow urine. Complains of intermittent bladder spasms. Review of Systems Review of Systems: All systems reviewed & are unremarkable except as noted in HPI and below Exam Narrative: General: Awake, alert, comfortable, no acute distress HEENT: Normocephalic, atraumatic, sclerae anicteric Respiratory: Normal respiratory effort, no accessory muscle use Abdomen: Nondistended, soft, nontender : gilman catheter draining clear yellow urine Skin: Normal coloration, warm and dry Neurologic: No focal neuro deficits noted Psychiatric: Appropriate mood and affect, judgment and insight intact Objective Data Vital Signs Vital Signs: Vital Signs - 24 hr 12/11/23 19:17 12/12/23 08:00 12/12/23 08:00 Temperature 98.5 F 97.6 F Pulse Rate 101 H 102 H Respiratory Rate 16 17 Blood Pressure 116/65 111/69 Pulse Oximetry 97 96 Oxygen Delivery Room Air Intake/Output Intake/Output: Intake & Output 12/09/23 12/10/23 12/11/23 12/12/23 23:59 23:59 23:59 23:59 Intake Total 4649 3876.4 600 500 Output Total 3160 2025 1400 850 Balance 1489 1851.4 -800 -350 Meds/Results Medications: Active Medications Generic Name Dose Route Start Last Admin Trade Name Freq PRN Reason Stop Dose Admin Cyanocobalamin 1,000 mcg 12/10/23 09:00 12/12/23 07:03 Cyanocobalamin 1,000 Mcg Tablet PO 1,000 mcg DAILY VINAY Administration Docusate Sodium 100 mg 12/10/23 09:00 12/12/23 06:58 Docusate Sodium 100 Mg Capsule PO 100 mg Q12HR VINAY Administration Enoxaparin Sodium 40 mg 12/09/23 21:00 12/11/23 21:42 Enoxaparin 40 Mg/0.4 Ml Syringe SUB-Q 40 mg Q24H VINAY Administration Ibuprofen 600 mg 12/10/23 06:12 12/12/23 06:55 Ibuprofen 600 Mg Tablet PO 600 mg Q6H PRN Administration Cramping Methocarbamol 1,500 mg 12/09/23 15:13 12/12/23 11:40 Methocarbamol 750 Mg Tablet PO 1,500 mg TID PRN Administration vaginal spasms Metoclopramide HCl 10 mg 12/09/23 15:13 Metoclopramide Hcl Inj 10 Mg/2 Ml Vial IV PUSH Q6H PRN Nausea Miscellaneous Information 1 each 12/10/23 00:01 Please Send Down Patient Home Supply Of Crisaborole [Eucrisa] 2 % Ointment For Pharmacy Ve XX 01/09/24 00:00 CLARIFY [facility] Non-Formulary Medication 60 applic 12/09/23 21:00 Crisaborole [Eucrisa] TOPICAL 01/08/24 20:59 HS [facility] Ondansetron HCl 4 mg 12/09/23 15:13 Ondansetron Inj 4 Mg/2 Ml Vial IV PUSH Q6H PRN Nausea Oxycodone/Acetaminophen 1 tablet 12/09/23 15:13 12/12/23 11:39 Oxycodone/Acetaminophen (*Crx) 5-325 Mg Tablet PO 1 tablet Q4H PRN Administration Pain Rated 4-6 Oxycodone/Acetaminophen 1 tab 12/09/23 15:13 12/11/23 14:01 Oxycodone/Acetaminophen (*Crx) 10-325 Mg Tablet PO 1 tab Q4H PRN Administration Pain Rated 7-10 Phenazopyridine HCl 200 mg 12/10/23 22:00 12/12/23 07:04 Phenazopyridine Hcl 100 Mg Tablet PO 200 mg Q8HR VINAY Administration Simethicone 80 mg 12/09/23 16:24 12/12/23 06:55 Simethicone 80 Mg Tab.Chew PO 12/12/23 16:17 80 mg Q2H PRN Administration Gas Discomfort Tamsulosin HCl 0.4 mg 12/11/23 21:00 12/11/23 21
--- NOTE | 2023-12-12 13:20 | PM.GYNPNOP ---
[employer] - A/P Assessment and plan (1) Fibroid uterus: Code(s): D25.9 - Leiomyoma of uterus, unspecified Status: Acute Assessment and Plan: A: POD#3, doing well. P: Home today. Very much appreciate urology input! F/u 2 weeks. (2) Menometrorrhagia: Code(s): N92.1 - Excessive and frequent menstruation with irregular cycle Status: Acute Postoperative Procedures: Procedures Operation Date: 12/09/23 12:00 Actual Procedure Side Surgeon p Total Abdominal Hysterectomy with Bilateral Salpingectomy Not Applicable Joe Avila MD Postoperative day: 3 Time Spent With Patient Time with patient: less than 15 minutes [employer]- PN:Subj Post-Op Subjective Date/time seen: 12/12/23 13:20 Pain OK. Plan to take gilman out per urology. She would like to go home. Exam Narrative: AVSS I/O OK ABD soft, nontender. Incision c/d/i. EXT nontender [employer] - PN: Obj Data Vital Signs Vital Signs: Vital Signs - 24 hr 12/11/23 19:17 12/12/23 08:00 12/12/23 08:00 Temperature 36.9 C 36.4 C Pulse Rate 101 H 102 H Respiratory Rate 16 17 Blood Pressure 116/65 111/69 Pulse Oximetry 97 96 Oxygen Delivery Room Air Intake/Output Intake/Output: Intake & Output 12/09/23 12/10/23 12/11/23 12/12/23 23:59 23:59 23:59 23:59 Intake Total 4649 3876.4 600 500 Output Total 3160 2025 1400 850 Balance 1489 1851.4 -800 -350 Meds/Results Medications: Active Medications Generic Name Dose Route Start Last Admin Trade Name Freq PRN Reason Stop Dose Admin Cyanocobalamin 1,000 mcg 12/10/23 09:00 12/12/23 07:03 Cyanocobalamin 1,000 Mcg Tablet PO 1,000 mcg DAILY VINAY Administration Docusate Sodium 100 mg 12/10/23 09:00 12/12/23 06:58 Docusate Sodium 100 Mg Capsule PO 100 mg Q12HR VINAY Administration Enoxaparin Sodium 40 mg 12/09/23 21:00 12/11/23 21:42 Enoxaparin 40 Mg/0.4 Ml Syringe SUB-Q 40 mg Q24H VINAY Administration Ibuprofen 600 mg 12/10/23 06:12 12/12/23 06:55 Ibuprofen 600 Mg Tablet PO 600 mg Q6H PRN Administration Cramping Methocarbamol 1,500 mg 12/09/23 15:13 12/12/23 11:40 Methocarbamol 750 Mg Tablet PO 1,500 mg TID PRN Administration vaginal spasms Metoclopramide HCl 10 mg 12/09/23 15:13 Metoclopramide Hcl Inj 10 Mg/2 Ml Vial IV PUSH Q6H PRN Nausea Miscellaneous Information 1 each 12/10/23 00:01 Please Send Down Patient Home Supply Of Crisaborole [Eucrisa] 2 % Ointment For Pharmacy Ve XX 01/09/24 00:00 CLARIFY [facility] Non-Formulary Medication 60 applic 12/09/23 21:00 Crisaborole [Eucrisa] TOPICAL 01/08/24 20:59 HS VINAY Ondansetron HCl 4 mg 12/09/23 15:13 Ondansetron Inj 4 Mg/2 Ml Vial IV PUSH Q6H PRN Nausea Oxycodone/Acetaminophen 1 tablet 12/09/23 15:13 12/12/23 11:39 Oxycodone/Acetaminophen (*Crx) 5-325 Mg Tablet PO 1 tablet Q4H PRN Administration Pain Rated 4-6 Oxycodone/Acetaminophen 1 tab 12/09/23 15:13 12/11/23 14:01 Oxycodone/Acetaminophen (*Crx) 10-325 Mg Tablet PO 1 tab Q4H PRN Administration Pain Rated 7-10 Phenazopyridine HCl 200 mg 12/10/23 22:00 12/12/23 07:04 Phenazopyridine Hcl 100 Mg Tablet PO 200 mg Q8HR VINAY Administration Simethicone 80 mg 12/09/23 16:24 12/12/23 06:55 Simethicone 80 Mg Tab.Chew PO 12/12/23 16:17 80 mg Q2H PRN Administration Gas Discomfort Tamsulosin HCl 0.4 mg 12/11/23 21:00 12/11/23 21:56 Tamsulosin Hcl 0.4 Mg Capsule PO 0.4 mg HS VINAY Administration Radiology Results: ITS Impressions Venous Doppler Study 12/09/23 09:31 IMPRESSION: 1. No deep venous thrombosis in the left lower limb. Abdomen/Pelvis CT 12/11/23 06:29 Impression: Status post interval hysterectomy, with small to moderate abdominopelvic ascites and small amount of free air in the pelvis, which is likely postoperative in nature. Urinary bladder collapsed aroun
--- NOTE | 2023-12-12 14:45 | PC.NURSE ---
CARLOS Ireland up on unit around 1300 stating that cystogram results were good and patient is ok to discharge from urology standpoint. States to call her if patient has trouble voiding post urinary catheter removal or continues to have bladder spasms not controlled by the medication she is giving. She states patient will be ok to discharge home on flomax and pyridum, but does not want to continue Oxybutynin at home due to risk of urinary retention. She states she will put these medications in her discharge orders.
--- NOTE | 2023-12-12 14:51 | PC.NURSE ---
CARLOS Ireland up on unit around 1300 stating that cystogram results were good and patient is ok to discharge from urology standpoint. States to call her if patient has trouble voiding post urinary catheter removal or continues to have bladder spasms not controlled by the medication she is giving. She states patient will be ok to discharge home on flomax and pyridum. She states she will put these medications in her discharge orders.
--- NOTE | 2023-12-13 08:53 | PM.DS ---
DS: Admitting Diagnosis Discharge Date 12/12/23 Admitting Diagnosis Heavy vaginal bleeding Fibroid uterus DS: Discharge Diagnosis Discharge Diagnosis (1) Fibroid uterus: Code(s): D25.9 - Leiomyoma of uterus, unspecified Status: Acute (2) Menometrorrhagia: Code(s): N92.1 - Excessive and frequent menstruation with irregular cycle Status: Acute (3) Postoperative urinary retention: Code(s): N99.89 - Other postprocedural complications and disorders of genitourinary system; R33.8 - Other retention of urine Status: Acute DS: Summary Hospital Course Hospital Course: 38 y/o female with a fibroid uterus and heavy, prolonged episodes of vaginal bleeding, scheduled for hysterectomy in a few weeks. She has tried combined oral contraceptives and Lysteda, but has continued to have irregular and sometimes heavy bleeding. She had an episode of passage of hand-sized clots, prompting a visit to the ED. She was admitted and underwent total vaginal hysterectomy with bilateral salpingectomies. Postoperatively she had urinary retention and some bloody urine. Urology was consulted and ruled out cystotomy. She was subsequently able to void, tolerated a regular diet, and had good pain control. Was able to go home on POD#3. DS: Data Data Completed and Pending Completed studies during hospitalization: Pending at discharge 12/09/23 12:40 Surgical [PTH] Routine Discharge Plan Discharge Attending physician on discharge: Joe Avila Discharging Clinician: Joe Avila Patient Disposition: Home, Self-Care Activity: may shower, may drive after 2 weeks and pelvic rest Diet: regular Wound Care Instructions: incision open to air Discharge Instructions: Call or return if temperature above 100.4? F, increased abdominal pain, increased vaginal bleeding or any new problems. Patient Instructions: VCUG (Voiding Cystourethrogram) (DC), Hysterectomy (GEN) Stand Alone Forms: General Discharge Information, Work/School Release IP Follow-up/Referrals: Joe Avila MD [Physician] - 2 Weeks Discharge Medications: New oxycodone-acetaminophen [Percocet] 5-325 mg tablet 1 - 2 tablet PO Q6H PRN (Reason: pain) Qty: 30 0RF ibuprofen 600 mg tablet 600 mg PO Q6H PRN (Reason: cramps) Qty: 30 0RF phenazopyridine [Pyridium] 200 mg tablet 200 mg PO TID PRN (Reason: pain) Qty: 20 0RF ferrous sulfate 325 mg (65 mg iron) tablet 325 mg PO DAILY Qty: 30 0RF tamsulosin 0.4 mg Capsule 0.4 mg PO HS Qty: 30 0RF Continued Saccharomyces boulardii [Daily Probiotic (S. boulardii)] 250 mg capsule 250 mg PO BID cyanocobalamin (vitamin B-12) 1,000 mcg capsule 1,000 mcg PO DAILY methocarbamol 750 mg tablet 1,500 mg PO TID PRN (Reason: vaginal spasms ) Qty: 90 0RF Rx Instructions: take 2 tabs by mouth three times per day as needed for up to 2-3 days for vaginal spasms Eucrisa 2 % Ointment 60 applic TOPICAL HS semaglutide (weight loss) 1 mg/0.5 mL Pen Injector 1 mg SUBCUT WEEKLY Rx Instructions: administer weeks 9 through 12 of therapy Discontinued oxycodone-acetaminophen [Percocet] 5-325 mg tablet 1 - 2 tablet PO Q6H PRN (Reason: pain) Qty: 30 0RF Date of admission: 12/09/23 09:48 Primary Care Provider: Anthony,Bernard Quick Admitting Provider: Joe Avila Attending physician on admission: Joe Avila Condition: Stable
== END 2023-12-12 17:00 | disposition home or self-care (01) | DRG 743 ==
LOC: ANHED 12-09 03:14 → ANHOB2 12-09 04:29
PROVIDERS: Emergency Medicine; Admitting Provider Obstetrics & Gynecology; Emergency Provider Registered Nurse; PCP Internal Medicine; Visit Provider Obstetrics & Gynecology
PROC: 0UT94ZZ Resection of Uterus, Percutaneous Endoscopic Approach (ICD-10-PCS; principal; 2023-12-09 12:00)
DX: D25.9 Leiomyoma of uterus, unspecified (principal); N92.1 Excessive and frequent menstruation with irregular cycle; N99.89 Other postprocedural complications and disorders of genitourinary system; R33.8 Other retention of urine
CPT/HCPCS: 36415; 51600; 74018; 74176; 74177; 74430; 80053; 81025; 85014; 85018; 85025; 85461; 85610; 85730; 86850; 86900; 86901; 88307; 93971; 96361; 96365; 96375; 99285; A9270; G0378; J1100; J1170; J1200; J1650; J1885; J2250; J2270; J2405; J3010; J7030; J7120; Q9967

== ENCOUNTER 2024-05-24 12:21 | Outpatient (CLI) | payer OTHER, SELFPAY ==
--- OUTSIDE RECORDS SUMMARY | 2024-05-24 12:26 | XMS_ITS | Encounter Summary ---
Author Organization [facility] Address [address] [place] [address] Phone Care Team Providers Care Iron Launder Operator Name Role Phone Bernard Cruz MD Primary Care Provider [phone] Reason for Visit * Reason Onset Date Comments Medication Refill 12/05/2019 Encounter Details Date Type Department Care Team (Late st Contact Info) Description 12/05/2019 Refill [facility] [address] [place] [address] Bernard Cruz MD [address] [address] Medication Refill Social History Tobacco Use Types Packs/Day Years Used Date Smoking Tobacco: Never Smokeless Tobacco: Never Alcohol Use Standard Drinks/Week Comments No 0 (1 standard drink = 0.6 oz pur e alcohol) PHQ-2 Answer Date Recorded Total Score - Questions 1-9 1 07/2019 Sexually Active Control Partners Comments Yes Male Comments No Sex and Gender Information Value Date Recorded Sex Assigned at Not on file Legal Sex Female 8:52 PM CDT Gender Identity Not on file Sexual Orientation Not on file documented as of this encounter Miscellaneous Notes * Telephone Encounter - Bernard Cruz MD - 12/05/2019 4:26 PM CDT Prescription pending signature * Telephone Encounter - Virginia Davis RN - 12/05/2019 4:19 PM CDT Medication failed the protocol, provider to review and approve the medication order. Requested Prescriptions Pending Prescriptions Disp Refills traMADol (ULTRAM) 50 MG Tablet 30 Tab 0 Sig: Take 1 Tab by mouth every 6 hours as needed for Severe pain. Not Delegated - Analgesics: Opioid Agonists Failed - 12/05/2019 4:07 PM Failed - This refill cannot be delegated Passed - Valid encounter within last 6 months Past Office Visits Recent Outpatient Visits 2 months ago Chronic midline low back pain without sciatica [facility] Lidia Delvalle APN SPECIALTY [employer] PRODUCTS SUPERVISOR 4 months ago Intertrigo [facility] Bernard Cruz MD 6 months ago Non morbid obesity due to excess calories [facility] Bernard Cruz MD 8 months ago Sore throat [facility] Lidia Puckett APN SPECIALTY [employer]OD PRODUCTS SUPERVISOR 10 months ago Eyelid twitch [facility] Lidia Puckett APN SPECIALTY [employer]OD PRODUCTS SUPERVISOR Upcoming Appointments Future Appointments In 3 months Bernard Cruz MD [facility], [facility] ELECTRICAL CALIBRATOR - Recent and Past Visits Recent Visits Date Type Provider Dept 09/11/19 Office Visit Lidia Puckett APN, CNP [facility] 07/31/19 Telemedicine Bernard Cruz MD [facility] 06/06/19 Office Visit Bernard Cruz MD [facility] 03/13/19 Office Visit Lidia Puckett APN, CNP [facility] 01/22/19 Office Visit Lidia Puckett APN, CNP [facility] 09/04/18 Office Visit Lidia Puckett APN, CNP [facility] Showing recent visits within past 460 days with a meds authorizing provider and meeting all other requirements Future Appointments No visits were found meeting these conditions. Showing future appointments within next 90 days with a meds authorizing provider and meeting all other requirements * Telephone Encounter - Krystal Lazaro, RN - 12/05/2019 4:02 PM CDT Received: [x]FAX []TELEPHONE CALL []MYCHART from: [x]PHARMACY []PATIENT/OTHER regarding medication management. Medication name and dose: tramadol 50mg tabs Quantity: (30 day, 90 day, 3 monthly scripts) 30 tabs Pharmacy preference for this medication: [facility] Outcome: [x]Medication pended, routed to surescripts []Medication refused []Informed caller of refills at pharmacy []Additional message to medication management RN []Verbal authorization for written order to pharmacy []Additional message to provider []Verified medication with pharmacy PEGGY Hollingsworth RN Nurse Triage documented in this encounter Plan of Treatment Not on file documented as of this encounter Visit Diagnoses Diagnosis Closed fracture of coccyx with delayed healing, subsequent encounter Chronic midline low back pain without sciatica Coccyx pain Other disorder of coccyx documented in this encounter Additional Health Concerns Assessment Noted Time PHQ-9 Depression Total Score: 1 06/06/19 20 10:55 AM CATALOGUE AND SPECIAL PRODUCTS MANAGER documented as of this encounter Care Teams Iron Launder Operator Relationship Specialty Start Date End Date Bernard Cruz MD [address] [address] PCP - General Family Medicine 09/05/15 documented as of this encounter
--- OUTSIDE RECORDS SUMMARY | 2024-05-24 12:26 | XMS_ITS | Continuity of Care Document ---
Author Organization [facility] Address [address] [place] [address] Phone Care Team Providers Care Event Crew Technician Name Role Phone Joshua Hawley MD Unavailable Unavailable Advance Directives Directive Yes / No Effective Date File Name No Information Encounters Encounter Description Practice Location Reason(s) For Visit Diagnoses Date Provider Providers Copied on Encounter [facility], [address], [place], [place], [id number], [place] tel:[phone] [facility] No Information Cahndan Lewis. [address], [place], [place], [id number], [place]. tel:[phone] Referring Provider: Clayton Hood, [address], [place], [address]. tel:[phone] Family History Family Member Type Diagnosis Age At Onset No Information Payers Payer name Insurance type Covered green party ID Authoriza tion(s) [employer] INACTIVE OUT OF STATE [id number] [facility] CHOICE [facility] [id number] Social History Type Description Quantity Date Captured Comments Sex Female Smoking Status No Information Chief Complaint And Reason For Visit No Information Reason For Referral Reason For Referral No Information History Of Present Illness Encounter Date Complaint History Of Prese nt Illness No Information Functional Status Date Functional Assessmen t No Information Instructions Date Instruction Additional Infor mation No Information Assessments Type Assessment Date No Information Patient Care Teams Name Effective Dates (start - stop) Status Members No Information
--- OUTSIDE RECORDS SUMMARY | 2024-05-24 12:26 | XMS_ITS | Clinical Summary ---
Author Organization [facility] Address [address] [place] [address] Care Team Providers Care Field Nurse Name Role Phone Kirk Kent MD Unavailable Bernard Cruz MD Primary Care Provider [phone] Allergies Active Allergy Reactions Criticality Noted Date Comments Latex Hives,Swelling High 03/02/2015 Hives and swelling Reaction: HIVES Medications multivitamin tablet Take 1 tablet by mouth daily Active traMADoL (ULTRAM) 50 mg tablet Take 50 mg by mouth every 6 (six) hours as needed 03/18/2020 Active Ventolin HFA 90 mcg/actuation inhaler INHALE 2 PUFFS BY MOUTH EVERY 4 HOURS NEEDED FOR WHEEZING OR COUGHING 06/30/[address] (ACIPHEX) 20 mg EC tablet Take 20 mg by mouth as needed 05/17/2020 Active loratadine (CLARITIN) 10 mg tablet Take 10 mg by mouth daily Active Orilissa 150 mg tablet Take 1 tablet by mouth daily 09/15/2021 Active fluconazole (DIFLUCAN) 150 mg tablet Take 1 tablet (150 mg total) by mouth as directed Take one tab now. Repeat in 7 days if symptoms persist. 2 tablet 07/08/2022 Active Active Problems Problem Noted Date Diagnosed Date Patellofemoral pain syndrome of both knees 10/14 Patellar tendinosis 10/14/2021 Chronic pain of both knees 10/14/2021 IUD (intrauterine device) in place 04/16/2020 Coccyx pain 09/01/2017 B12 deficiency 05/30/2017 Vitamin D deficiency 05/30/2017 Chronic midline low back pain without sciatica 1 Thyroid goiter 09/04/2015 Resolved Problems Problem Noted Date Diagnosed Date Resolved Date Left ureteral stone 04/22/2020 10/15/19 22 Overview (04/22/2020): Added automatically from request for surgery [id number] Hydronephrosis, left 04/16/2020 022 Renal stone 04/16/2020 10/14/2021 Hepatitis 04/16/2020 10/14/2021 Bandemia 04/16/2020 10/14/2021 Chest pressure 04/10/2017 10/14/2021 Assessment & Plan (04/10/2017 10: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 No Calf pain or swelling Will get D-dimers- If Positive - get CT PE Protocol to R/o PE Discussed other Common causes Including Esophageal Spasms, GERD, hiatal Hernias, Gastritis GB Problems Etc. 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 Folate defficiency Weight gain 04/10/2017 10/14/2021 Assessment & Plan (04/10/2017 10:44 PM PASSENGER TIRE BUILDER): Will check For TSH/T4 Immunizations Immunization Administration Dates Next Due Influenza, Quadrivalent, Spl it, Preservative Free, Intramuscular 01/25/2020,01/22/2019,03/15/2018,01/14,12/09/2015 Influenza, Trivalent, Preser vative Free, Intramuscular 11/03/2011 Td, adsorbed 11/03/2011 Tdap 04/26/2015 Surgical History Surgery Date Site/Laterality Comments ABDOMINAL SURGERY SECTION 2011 & 2016 COCCYGECTOMY 09/03/2016 CARDIAC CATHETERIZATION 04/04/2017 - 04/03/2018 no stents placed TONSILLECTOMY CYST REMOVAL Medical History Medical History Date Comments Spina bifida (HCC) Urinary tract infection Varicella Motion sickness GERD (gastroesophageal reflux disease) Kidney stone Hydronephrosis, left 04/16/2020 Renal stone 04/16/2020 Family History Medical History Relation Name Comments Alcohol abuse Father COPD Father Lung disease Father Relation Name Status Comments Father Social History Tobacco Use Types Packs/Day Years Used Date Smoking Tobacco: Never Smokeless Tobacco: Never Alcohol Use Standard Drinks/Week Comments Yes 0 (1 standard drink = 0.6 oz pur e alcohol) occasional Personal Safety Answer Date Recorded Getting School Help Needed Not on file 05/07 Comments No Sex and Gender Information Value Date Recorded Sex Assigned at Not on file Legal Sex Female 1:46 AM PASSENGER TIRE BUILDER Gender Identity Not on file Sexual Orientation Not on file Obstetrics History Last Filed Vital Signs Vital Sign Reading Time Taken Comments Blood Pressure 127/77 10/14/2021 1:59 PM CDT Pulse 87 10/14/2021 1:59 PM CDT Temperature 36.8 C (98.2 F) 07/19/2021 10:41 AM CDT Respiratory Rate 16 07/19/2021 10:41 AM CDT Oxygen Saturation 98% 07/19/2021 10:41 AM CDT Inhaled Oxygen Concentration - - Weight 91.6 kg (202 lb) 10/14/2021 1:59 PM CDT Height 152.4 cm (5') 10/14/2021 1:59 PM CDT Body Mass Index 39.45 10/14/2021 1:59 PM CDT Plan of Treatment Health Maintenance Due Date Last Done Comments Breast Cancer Screening-Mammogram 1985 Cervical Cancer Screening 1983 Depression Screening 1983 Hepatitis C Screening 1983 Hepatitis B Screening 11/21/2001 Regular Well Visit/Exam 18-64 11/21/2001 Covid-19 Vaccine ( season) 2023 07/18/2020, 06/20/2020 Influenza Vaccine (#1) 2023 , 01/25/2020, 01/22/2019, Additional history exists DTaP/Tdap/Td Vaccine (2 - Td or Tdap) 04/26/2025 04/26/2015, 11/03/2011 HPV Vaccines Aged Out No longer eligi ble based on patient's age to complete this topic Pneumococcal vaccine <65 Aged Out No longer eligible based on patient's age to complete this topic Medical Devices Implanted Type Area Whizzer Operator Device Identifier Shelf Expiration Date Model / Serial / Lot [employer] [id number] Stent Taper 20cm 7fr Ureteral Hydroglide [place] Polymer Phreecoat Pusher Fluoro Marker Atraumatic Insertion Sterile Latex Free Disposable [place] - [id number] Implanted:Qty: 1 on 05/08/2020 by Kirk Kent MD at [facility] Left: Ureter [employer] [id number] 06/29/2022 [id number] / / [id number] Explanted Type Area Whizzer Operator Device Identifier Shelf Expiration Date Model / Serial / Lot [employer] [id number] [place] 7fr 20cm Pusher Fluoro Marker Atraumatic Insertion Latex Free - [id number] Implanted:Qty: 1 on 04/16/2020 by Kirk Kent MD at [facility] Explanted:Qty: 1 on 05/08/2020 by Kirk Kent MD at [facility] Left: Ureter [employer] [id number] 06/29/2022 [id number] / / [id number] [place] [address] [facility] CHOICE PLUS [facility] HMO/PPO Address: [facility] [address] [place] [address] [facility] [id number] [place] [address] [facility] HMO/PPO Address: [address] [address] [facility] OPEN ACCESS Advance Directives For more information, please contact: [phone] * Full Code (Latest Code Status on File) Date Activated Date Inactivated Comments 04/16/2020 2:21 AM 04/17/2020 7:40 PM * Full Code Date Activated Date Inactivated Comments 04/10/2017 6:38 PM 04/13/2017 4:38 PM Care Teams Field Nurse Relationship Specialty Start Date End Date eBrnard Cruz MD [address] [address] PCP - General Family Medicine 10/14/21 [place] [id number] [facility] [address] [place] [address] Consulting Physician Urology 04/17/20
--- OUTSIDE RECORDS SUMMARY | 2024-05-24 12:26 | XMS_ITS | Referral Summary ---
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): Cardiac Workup Was Negative Normal EKG , [...] 04/10/201710/02 Assessment & Plan (04/10/2017 10:47 PM 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 OPERATOR): Neurology Was Consulted In ED - Recommended [...] 10/14/2021 Assessment & Plan (04/10/2017 10:44 PM 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 OPERATOR): Will check For TSH/T4 Immunizations Immunization Administration Dates Next Due Influenza, Quadrivalent, Spl it, Preservative Free, Intramuscular 01/25/2020,01/22/2019,03/15/2018,01/14,12/09/2015 Influenza, Trivalent, Preser vative Free, Intramuscular 11/03/2011 Td, adsorbed 11/03/2011 Tdap 04/26/2015 Social History Tobacco Use Types Packs/Day Years [...] on file Legal Sex Female 1:46 AM 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 Gender Identity Not on file Sexual Orientation Not on file Last Filed Vital Signs Vital Sign Reading [...] 10/14/2021 1:59 PM CDT Plan of Treatment Not on file Medical Devices Implanted Type Area Fiberglass Auto Body Repairer Device Identifier Shelf Expiration Date Model / Serial / Lot [employer] [id number] Stent Taper 20cm 7fr Ureteral Hydroglide [place] Polymer Phreecoat Pusher Fluoro Marker Atraumatic Insertion Sterile Latex Free Disposable [place] - [id number] Implanted:Qty: 1 on 05/08/2020 by Kirk Kent MD at [facility] Left: Ureter [employer] [id number] 06/29/2022 [id number] / / [id number] Explanted Type Area Fiberglass Auto Body Repairer Device Identifier Shelf Expiration Date Model / Serial / Lot [employer] [id number] [place] 7fr 20cm Pusher Fluoro Marker Atraumatic Insertion Latex Free - [id number] Implanted:Qty: 1 on 04/16/2020 by Kirk Kent MD at [facility] Explanted:Qty: 1 on 05/08/2020 by Kirk Kent MD at [facility] Left: Ureter [employer] [id number] 06/29/2022 [id number] / / [id number] Insurance [facility] CHOICE PLUS [facility] HMO/PPO Address: [address] [address] [place] [address] [facility] HMO/PPO Address: [address] [address] [place] [address] [address] HMO/PPO Address: [address] [address] [place] [address] [facility] OPEN ACCESS Advance Directives For more information, please contact: [phone] * Full Code (Latest Code Status on File) Date Activated Date Inactivated Comments 04/16/2020 2:21 AM 04/17/2020 7:40 PM * Full Code Date Activated Date Inactivated Comments 04/10/2017 6:38 PM 04/13/2017 4:38 PM Care Teams Gardener Florist Relationship Specialty Start Date End Date Bernard Cruz MD [address] [address] PCP - General Family Medicine 10/14/21 [place] [address] [facility] [address] [place] [address] Consulting Physician Urology 04/17/20
--- OUTSIDE RECORDS SUMMARY | 2024-05-24 12:26 | XMS_ITS | Clinical Summary ---
Author Organization [facility] Address [facility] [address] [place] [address] Phone Care Team Providers Care Flower Machine Operator Name Role Phone Bernard Cruz MD Primary Care Provider [phone] Allergies Active Allergy Reactions Criticality Noted Date Comments Latex Swelling High 03/02/2015 Hives and swelling Medications Multiple Vitamin (MULTI-VITAMIN) Tablet Take by mouth. Activ e vitamin b-12 (CYANOCOBALAMIN) 100 MCG Tablet Take 100 mcg by mouth daily. Active vitamin D (CHOLECALCIFEROL) 1000 UNIT Tablet Take 1,000 Units by mouth daily. Active Probiotic Product (ALIGN PO) Take by mouth. Acti ve albuterol 108 (90 Base) MCG/ACT Aerosol SolutionIndications :Cough take 2 Puffs by inhalation every 4 hours as needed for Wheezing or Cough. 8.5 g 07/01/19 21 Active Levocetirizine Dihydrochloride (XYZAL ALLERGY 24HR PO) Take by mouth. Activ e terbinafine (LamISIL) 1 % CreamIndications:Ti everett corporis Lamisil OTC 0 01/25/20 23 Active hydrocortisone 2.5 % CreamIndications:Ti everett corporis Cortisone OTC 30 g 01/25/20 23 Active metFORMIN (GLUCOPHAGE) 500 MG TabletIndications:O besity (BMI 30-39.9),Prediabete s Take 1 Tablet by mouth 2 times daily (with meals). 180 Tablet 3 04/01/20 Active Additional Information Patient not taking.Reported on 04/02/2024 tirzepatide (Mounjaro) 2.5 MG/0.5ML Solution Pen-injectorIndicat ions:Obesity (BMI 30-39.9),Prediabete s 2.5 mg by Subcutaneous route once a week. 2 mL 04/14/19 Active Additional Information Patient not taking.Reported on 04/02/2024 traMADol (ULTRAM) 50 MG TabletIndications:C losed fracture of coccyx with delayed healing, subsequent encounter,Chronic midline low back pain without sciatica Take 1 Tablet by mouth every 6 hours as needed for Moderate or more severe pain or Severe pain. 28 Tablet 03/23/20 Active methylPREDNISolone (MEDROL DOSPACK) 4 MG Tablet Therapy Pack Use as per instructions on package. 1 Tablet 04/02/20 Active Active Problems Problem Noted Date Diagnosed Date Coccyx pain 09/01/2017 Vitamin D deficiency 05/30/2017 B12 deficiency 05/30/2017 Chronic midline low back pain without sciatica 1 Need for influenza vaccination 12/09/2015 Physical exam 10/02/2015 Non morbid obesity due to excess calories 2015 Thyroid goiter 09/04/2015 Hemorrhoid Encounters Date Type Department Care Team Description 04/02/2024 2:00 PM INHALATION THERAPIST Office Visit [facility] [address] [place] [address] Anne White, PROGRAMMER ANALYST HEALTH IT, SURGICAL ATTENDANT Viral infection (Primary Dx) Discharge Disposition: Discharged to home or Selfcare 04/02/2024 Travel 03/22/2024 MyChart RX Renewal [facility] [address] [place] [address] Bernard Cruz MD Medication Renewal Reviewed from Last 3 Months Immunizations Immunization Administration Dates Next Due Covid-19, Mrna, Lnp-s, PF, 1 00 mcg/0.5 mL Dose (Moderna) 07/18/2020,06/20/2020 Influenza Vaccine 11/03/2011 Influenza Vaccine, Quadrivalent, PF 01/03,01/25/2020,01/22/2019,2017,01/14/2017,12/09/2015 PUR FLU 3+ YRS PRES FREE QUAD IM 12/09/2015 TD VACCINE 11/03/2011 TDAP Vaccine 04/26/2015 Family History Medical History Relation Name Comments Alcohol Abuse Father Chronic Obstructive Pulmonary Disease Father Cancer Maternal Grandmother brain Thyroid Disease Maternal Grandmother Ovarian Cancer Mother cervical canc er Thyroid Disease Mother Relation Name Status Comments Father Alive Maternal Grandmother Mother Alive Social History Tobacco Use Types Packs/Day Years Used Date Smoking Tobacco: Never Smokeless Tobacco: Never Tobacco Cessation:Counseling Given: No Alcohol Use Standard Drinks/Week Comments No 0 (1 standard drink = 0.6 oz pur e alcohol) PHQ-2 Answer Date Recorded Total Score - Questions 1-9 0 06/2021 Education Answer Date Recorded What is the highest level of school you have completed or the highest degree you have received? Bachelor's degree (e.g., BA, AB, BS) 01/25/2020 Sexually Active Control Partners Comments Yes Male Comments No Sex and Gender Information Value Date Recorded Sex Assigned at Not on file Legal Sex Female 8:52 PM CDT Gender Identity Not on file Sexual Orientation Not on file Last Filed Vital Signs Vital Sign Reading Time Taken Comments Blood Pressure 118/60 04/02/2024 1:59 PM INHALATION THERAPIST Pulse 92 04/02/2024 1:59 PM INHALATION THERAPIST Temperature 36.4 C (97.6 F) 04/02/2024 1:59 PM INHALATION THERAPIST Respiratory Rate 14 04/02/2024 1:59 PM INHALATION THERAPIST Oxygen Saturation 97% 04/02/2024 1:59 PM INHALATION THERAPIST Inhaled Oxygen Concentration - - Weight 85.9 kg (189 lb 4.8 oz) 04/02/2024 1:59 P M INHALATION THERAPIST Height 160 cm (5' 3 ) 04/02/2024 1:59 PM INHALATION THERAPIST Body Mass Index 33.53 04/02/2024 1:59 PM INHALATION THERAPIST Plan of Treatment Health Maintenance Due Date Last Done Comments Hepatitis C Virus (HCV) Screening 1983 Hepatitis B Immunization (1 of 3 - 19+ 3-dose series) 11/21/2002 Discussion re Starting/Frequency of Mammograms 2023 Influenza Immunization (#1) 12/04/202301/03, 01/25/2020, 01/22/2019, Additional history exists SARS-COV-2 Immunization ( season) 2023 04/17/2021, 07/18/2020, 06/20/2020 Td Immunization Every 10 Years (Adults With 1 Tdap) 04/26/2025 04/26/2015, 11/03/2011 Respiratory Syncytial Virus (RSV) Immunization (Adult) (1 - 1-dose 75+ series) 11/21/2058 Cervical Cancer Screening (CCS) Discontinued Pap Smear Discontinued 10/03/2011 HPV/Cotest Discontinued Meningococcal Immunization (ACWY) Aged Out No longer eligible based on patient's age to complete this topic Pneumococcal Immunization Combined Aged Out No longer eligible based on patient's age to complete this topic Rotavirus Immunization Aged Out No lo nger eligible based on patient's age to complete this topic Procedures Procedure Name Priority Date/Time Associated Diagnosis Comments PAP SMEAR Routine 10/03/2011 from Last 3 Months or Most Recently Relevant to Health Maintenance Results * PAP SMEAR (10/03/2011) 10/03/2011 us Unknown Provider [facility] - LABORATORY Final Result from Last 3 Months or Most Recently Relevant to Health Maintenance Insurance [employer] Advance Directives * Full Code (Latest Code Status on File) Date Activated Date Inactivated Comments 04/23/2015 11:44 PM 04/26/2015 5:50 PM Full Code: FULL ARREST: Attempt Resuscitation/CPR and use intubation and mechanical ventilation as indicated. PRE-ARREST: Use all measures to stabilize patient. * Full Code Date Activated Date Inactivated Comments 04/10/2015 6:42 PM 04/11/2015 12:20 AM Full Code: FULL ARREST: Attempt Resuscitation/CPR and use intubation and mechanical ventilation as indicated. PRE-ARREST: Use all measures to stabilize patient. * Full Code Date Activated Date Inactivated Comments 03/23/2015 6:05 PM 03/23/2015 10:15 PM Full Code : FULL ARREST: Attempt Resuscitation/CPR and use intubation and mechanical ventilation as indicated. PRE-ARREST: Use all measures to stabilize patient. * Full Code Date Activated Date Inactivated Comments 03/12/2015 8:35 PM 03/13/2015 1:38 AM Full Code: FULL ARREST: Attempt Resuscitation/CPR and use intubation and mechanical ventilation as indicated. PRE-ARREST: Use all measures to stabilize patient. * Full Code Date Activated Date Inactivated Comments 03/02/2015 2:45 PM 03/02/2015 6:39 PM Full Code: FULL ARREST: Attempt Resuscitation/CPR and use intubation and mechanical ventilation as indicated. PRE-ARREST: Use all measures to stabilize patient. Care Teams Flower Machine Operator Relationship Specialty Start Date End Date Bernard Cruz MD [address] [place] [address] PCP - General Family Medicine 09/05/15
--- OUTSIDE RECORDS SUMMARY | 2024-05-24 12:26 | XMS_ITS | Continuity of Care Document ---
Author Organization [facility] Address [address] [place] [address] [place] [address] Phone Care Team Providers Care [employer] Caretaker Name Role Phone Delia Fine MD Unavailable Unavailable Procedures Procedure Date Office/outpatient Visit, Est Advance Directives Directive Yes / No Effective Date File Name No Information Encounters Encounter Description Practice Location Reason(s) For Visit Diagnoses Date Provider Providers Copied on Encounter Office/outpat ient Visit, Est [facility], [address] [place] [address] [address], [place], [place], [id number], [place] tel:[phone] [facility] Professional No Information [address] [facility] [address], [place], [address], [place]. tel:[phone] Family History Family Member Type Diagnosis Age At Onset No Information Payers Payer name Insurance type Covered green party ID Authoriza tikeila(s) [facility] Commercial CI [id number] Social History Type Description Quantity Date Captured [...]
--- OUTSIDE RECORDS SUMMARY | 2024-05-24 12:26 | XMS_ITS | Encounter Summary ---
Author Organization [facility] Address [address] [place] [address] Phone Care Team Providers Care Planning Engineer Name Role Phone Bernard Cruz MD Primary Care Provider [phone] Reason for Visit * Reason Comments Medication Refill Encounter Details Date Type Department Care Team (Late st Contact Info) Description 01/27/2023 Refill [facility] - [place] [address] [place] [address] Lidia Puckett APRN, PRINTED CIRCUIT BOARD DRAFTER [address] [address] Medication Refill Social History Tobacco Use Types Packs/Day Years Used Date Smoking Tobacco: Never Smokeless Tobacco: Never Alcohol Use Standard Drinks/Week Comments No 0 (1 standard drink = 0.6 oz pur e alcohol) PHQ-2 Answer Date Recorded Total Score - Questions 1-9 0 08/0 06/2021 Education Answer Date Recorded What is [...] on file Sexual Orientation Not on file COVID-19 Exposure Response Date Recorded In the last 10 days, have yo u been in contact with someone who was confirmed or suspected to have Coronavirus/COVID-19? No / Unsure 01/24/2023 4:18 PM CDT documented as of this encounter Miscellaneous Notes * Telephone Encounter - Tami Rizo RN - 01/27/2023 2:29 PM CDT PDMP: dispensed 11/26/22 as 7-day supply (28 tabs) Medication failed the protocol, provider to review and approve the medication order if appropriate. Requested Prescriptions Pending Prescriptions Disp Refills traMADol (ULTRAM) 50 MG Tablet [Pharmacy Med Name: TRAMADOL HCL 50 MG TABLET] 28 Tablet Sig: TAKE 1 TABLET BY MOUTH EVERY 6 HOURS NEEDED FOR MODERATE OR MORE SEVERE PAIN OR SEVERE PAIN. Not Delegated - Opioid Agonists Protocol Failed - 01/27/2023 2:12 PM Failed - This refill cannot be delegated Passed - Visit with relevant provider in past 12 months or upcoming 90 days Recent Visits Date Type Provider Dept 01/24/23 Office Visit Dani Anna APRN, CNP [facility] 11/26/22 Telemedicine Lidia Puckett APRN, CNP [facility] [place] 07/30/22 Office Visit Lidia Puckett APRN, CNP [facility] [place] Showing recent visits within past 365 days and meeting all other requirements Future Appointments No visits were found meeting these conditions. Showing future appointments within next 90 days and meeting all other requirements documented in this encounter Plan of Treatment Not on file documented as of this encounter Visit Diagnoses Diagnosis Closed fracture of coccyx with delayed healing, subsequent encounter Chronic midline low back pain without sciatica documented in this encounter Additional Health Concerns Assessment Noted Time PHQ-9 Depression Total Score: 0 10/09/19 21 12:35 PM CDT documented as of this encounter Care Teams Planning Engineer Relationship Specialty Start Date End Date Bernard Cruz MD [address] [place] [id number] PCP - General Family Medicine 09/05/15 documented as of this encounter
--- OUTSIDE RECORDS SUMMARY | 2024-05-24 12:26 | XMS_ITS | Encounter Summary ---
Author Organization [facility] Address [address] [place] [address] Phone Care Team Providers Care Launch Operator Name Role Phone Bernard Cruz MD Primary Care Provider [phone] Encounter Details Date Type Department Care Team (Late st Contact Info) Description 06/29/2019 Telephone [facility] [address] [place] [address] Bernard Cruz MD #[address] [address] Social History Tobacco Use Types Packs/Day Years [...] encounter Miscellaneous Notes * Telephone Encounter - Breonna Adamspieter Doran - 06/29/2019 8:44 AM CDT [id number] - EXTERNAL DERMATOLOGY REFERRAL We have been unable to contact patient by phone or mail in regards to referral. Thank you. [facility] documented in this encounter Plan of Treatment Not on file documented as of this encounter Visit Diagnoses Not on filedocumented in this encounter Additional Health Concerns Assessment Noted Time PHQ-9 Depression Total Score: 1 06/06/19 20 10:55 AM SOCIOLOGY ADJUNCT INSTRUCTOR documented as of this encounter Care Teams Launch Operator Relationship Specialty Start Date End Date Bernard Cruz MD #[address] [place] [id number] PCP - General Family Medicine 09/05/15 documented as of this encounter
[2024-05-24 13:21] LABS: Alanine Aminotransferase 16 U/L (6-35); Albumin Level 4.5 g/dL (3.5-5.1); Alkaline Phosphatase 62 U/L (38-126); Amylase 63 U/L (30-110); Aspartate Amino Transferase 18 U/L (14-36); Bilirubin,Total 0.5 mg/dL (0.2-1.3); Lipase 70 U/L (23-300)
== END 2024-05-24 12:22 | disposition home or self-care (01) ==
LOC: ANHLAB 12:24
PROVIDERS: PCP Internal Medicine; Visit Provider Surgery
DX: K80.20 Calculus of gallbladder without cholecystitis without obstruction (principal)
CPT/HCPCS: 36415; 80076; 82150; 83690

== ENCOUNTER 2024-05-25 05:59 | Day surgery (SDC) | payer OTHER, SELFPAY ==
[2024-05-21 14:53] VITALS: BMI 35.8
--- NOTE | 2024-05-21 14:54 | PC.NURSE ---
Report to the Outpatient Waiting Room, entrance under the green pavilion located off [facility], at time _1000_ on date _03-30-3051_. Planned Procedure Time: _1200_.? Time changes happen often and if your time is changed the preop area will call you the afternoon before. - You and your visitor will be asked to self-screen and do not enter if you have any COVID symptoms. Please call surgeon if you need to reschedule. - A mask is optional within the hospital at this time. Patients may have clear liquids (water, carbonated beverages, clear teas, apple juice) until 3 hours prior to surgery with a maximum of 20 ounces. - No food from midnight until time of surgery and no smoking, or chewing tobacco (or any form of nicotine). No chewing gum, candy or mints. Take only the following medications with a SIP of water on the morning of surgery: __None____ DO NOT STOP ANY OF YOUR OTHER PRESCRIPTION MEDICATIONS PRIOR TO SURGERY EXCEPT THE FOLLOWING Hold all vitamins and supplements for 3 days per anesthesiologist. Medications to discontinue per physician Date to take last dose___Stop now.___ Please no make-up, nail eritrean, hairspray, perfume, deodorant, or body powder the day of surgery.? No jewelry (including any body piercings) or valuables the day of surgery, leave them at home.? Please take a shower or bath the night before, or the morning of, surgery with an antibacterial soap.? Wear comfortable, loose fitting clothing.? - Jewelry must be removed prior to entering the operating room.? Rings and piercings that are not removed may be cut off. - The hospital will not accept responsibility for valuables.? - Please leave all valuables, including medications, at home the day of surgery. If you are going home after surgery, a licensed taxi driver must drive you home.? - NO public transportation without another adult if you receive anesthesia. - We recommend that an adult stay with you for 24 hours following discharge. - We also recommend that you do not drive, make important decision, drink alcoholic beverages, or take any drugs that were not prescribed by your health care provider for at least 24 hours after your discharge time. Follow any additional instructions given to you from your surgeon. Telephone instructions given to __Jose Antoniojesus__and asked if any additional questions and then verbalized understanding. Patient advised to call surgeon office or pre surgery nurse liaison [phone] if any additional questions.
[2024-05-25] VITALS (9 sets, daily range): BP systolic 101–129; BP diastolic 53–63; PULSE 76–100; RESP 12–18; TEMP 36.6–36.7; O2SAT 98–100
--- NOTE | ~2024-05-25 | XR_ITS ---
EXAMINATION: XR cholangiogram surg 1st inj DATE: 05/25/2024 13:44 INDICATION: Intraoperative evaluation during laparoscopic cholecystectomy TECHNIQUE: Multiple fluoroscopic images of the right upper quadrant were obtained during intraoperati ve cholangiography. A total of 89 fluoroscopic images were obtained. The amount of fluoroscopy time used during this procedure was minutes. COMPARISON: None. FINDINGS: Cannulation of the cystic duct demonstrates filling of a normal appearing common bile duct which tapers smoothly distally. There is a small mobile lucent filling defect in the common hepatic d uct which appears to coalesce from more ill-defined lucency refluxing from the common bile duct and w ould favor a gas bubble over a gallstone. Contrast extends into the duodenum and central intrahepatic biliary tree which also appears normal. IMPRESSION: 1. Small nonobstructing mobile filling defect in the common hepatic duct which appears more likely to represent a gas bubble refluxing from the distal common bile duct rather than a gallstone. No other filling defects or strictures within the common bile duct or contrast opacified central biliary tree. Reviewed, dictated and finalized at location [facility]. [facility] IMPRESSION: 1. Small nonobstructing mobile filling defect in the common hepatic duct which appears more likely to represent a gas bubble refluxing from the distal common bile duct rather than a gallstone. No other filling defects or strictures withi n the common bile duct or contrast opacified central biliary tree.
--- OUTSIDE RECORDS SUMMARY | 2024-05-25 06:10 | XMS_ITS | Encounter Summary ---
Author Organization [facility] Address [address] [place] [address] Phone Care Team Providers Care Dietary Services Director Name Role Phone Bernard Cruz MD Primary Care Provider [phone] Reason for Visit * Reason Comments Medication Refill Encounter Details Date Type Department Care Team (Late st Contact Info) Description 01/27/2023 Refill [facility] - [facility] - [place] [address] [place] [address] Lidia Puckett APRN, HOTEL BAGGAGE HANDLER #[address] [address] Medication Refill Social History Tobacco [...] Ya 11/26/22 Telemedicine Lidia Puckett APRN, CNP [facility] [place] 07/30/22 Office Visit Lidia Puckett APRN, CNP [facility] [place] Showing recent visits within past 365 [...] documented as of this encounter Care Teams Dietary Services Director Relationship Specialty Start Date End Date Bernard Cruz MD [address] [place] [id number] PCP - General Family Medicine 09/05/15 documented as of this encounter
--- OUTSIDE RECORDS SUMMARY | 2024-05-25 06:10 | XMS_ITS | Clinical Summary ---
Author Organization [facility] Address [address] [place] [address] Care Team Providers Care Railroad Car Painter Name Role Phone Kirk Kent MD Unavailable [phone] Bernard Cruz MD Primary Care Provider [phone] Allergies Active Allergy Reactions Criticality Noted Date [...] (04/22/2020): Added automatically from request for surgery [id number] Hydronephrosis, left 04/16/2020 022 Renal stone 04/16/2020 10/14/2021 Hepatitis 04/16/2020 10/14/2021 Bandemia 04/16/2020 10/14/2021 Chest pressure 04/10/2017 10/14/2021 Assessment & Plan (04/10/2017 10:35 PM DESIGN PRINTING MACHINE SET UP OPERATOR): Cardiac Workup Was Negative Normal EKG [...] 04/10/201710/02 Assessment & Plan (04/10/2017 10:47 PM DESIGN PRINTING MACHINE SET UP OPERATOR): Neurology Was Consulted In ED - [...] 10/14/2021 Assessment & Plan (04/10/2017 10:44 PM DESIGN PRINTING MACHINE SET UP OPERATOR): Will check For TSH/T4 Immunizations Immunization [...] on file Legal Sex Female 1:46 AM DESIGN PRINTING MACHINE SET UP OPERATOR Gender Identity Not on file Sexual [...] this topic Medical Devices Implanted Type Area Outsole Beveler Device Identifier Shelf Expiration Date Model / Serial / Lot [employer] [id number] Stent Taper 20cm 7fr Ureteral Hydroglide Inlay [place] Polymer Phreecoat Pusher Fluoro Marker Atraumatic Insertion Sterile Latex Free Disposable [place] Green - [id number] Implanted:Qty: 1 on 05/08/2020 by Kirk Kent MD at [facility] Left: Ureter [employer] [id number] 06/29/2022 [id number] / / [id number] Explanted Type Area Outsole Beveler Device Identifier Shelf Expiration Date Model / Serial / Lot [employer] [id number] Inlay [place] 7fr 20cm Pusher Fluoro Marker Atraumatic Insertion Latex Free - [id number] Implanted:Qty: 1 on 04/16/2020 by Kirk Kent MD at [facility] Explanted:Qty: 1 on 05/08/2020 by Kirk Kent MD at [facility] Left: Ureter [employer] [id number] 06/29/2022 [id number] / / [id number] [place] [address] [facility] CHOICE PLUS [facility] HMO/PPO Address: [facility] [address] [place] [address] [facility] [place] [facility] Address: [address] [id number] [place] [address] [facility] HMO/PPO Address: [address] [address] [facility] OPEN ACCESS Advance Directives For more information, please contact: [phone] * Full Code (Latest Code Status on File) Date Activated Date Inactivated Comments 04/16/2020 2:21 AM 04/17/2020 7:40 PM * Full Code Date Activated Date Inactivated Comments 04/10/2017 6:38 PM 04/13/2017 4:38 PM Care Teams Railroad Car Painter Relationship Specialty Start Date End Date Bernard Cruz MD [address] [address] PCP - General Family Medicine 10/14/21 [place] [address] [facility] [address] [place] [address] Consulting Physician Urology 04/17/20
--- OUTSIDE RECORDS SUMMARY | 2024-05-25 06:10 | XMS_ITS | Clinical Summary ---
Author Organization [facility] Address [facility] [address] [place] [address] Phone Care Team Providers Care Waste/Materials Exchange Specialist Name Role Phone Bernard Cruz MD Primary Care Provider [phone] Allergies Active Allergy Reactions Criticality Noted Date [...] Department Care Team Description 04/02/2024 2:00 PM PLANT ECOLOGIST Office Visit [facility] [address] [place] [address] Anne White, SPACE CONTROLLER, PEARL GLUE OPERATOR Viral infection (Primary Dx) Discharge Disposition: Discharged to home or Selfcare 04/02/2024 Travel 03/22/2024 MyChart RX Renewal [facility] [address] [place] [address] Bernard Cruz MD Medication Renewal Reviewed from [...] Comments Blood Pressure 118/60 04/02/2024 1:59 PM PLANT ECOLOGIST Pulse 92 04/02/2024 1:59 PM PLANT ECOLOGIST Temperature 36.4 C (97.6 F) 04/02/2024 1:59 PM PLANT ECOLOGIST Respiratory Rate 14 04/02/2024 1:59 PM PLANT ECOLOGIST Oxygen Saturation 97% 04/02/2024 1:59 PM PLANT ECOLOGIST Inhaled Oxygen Concentration - - Weight 85.9 kg (189 lb 4.8 oz) 04/02/2024 1:59 P M PLANT ECOLOGIST Height 160 cm (5' 3 ) 04/02/2024 1:59 PM PLANT ECOLOGIST Body Mass Index 33.53 04/02/2024 1:59 PM PLANT ECOLOGIST Plan of Treatment Health Maintenance Due Date [...] all measures to stabilize patient. Care Teams Waste/Materials Exchange Specialist Relationship Specialty Start Date End Date Bernard Cruz MD [address] [place] [address] PCP - General Family Medicine 09/05/15
--- OUTSIDE RECORDS SUMMARY | 2024-05-25 06:10 | XMS_ITS | Encounter Summary ---
Author Organization [facility] Address [address] [place] [address] Phone Care Team Providers Care Social Director Name Role Phone Bernard Cruz MD Primary Care Provider [phone] Encounter Details Date Type Department Care Team (Late st Contact Info) Description 06/29/2019 Telephone [facility] [address] [place] [address] Bernard Cruz MD #[address] [address] Social History Tobacco Use Types Packs/Day Years [...] Adamspieter Doran - 06/29/2019 8:44 AM CDT [id number] - EXTERNAL DERMATOLOGY REFERRAL We have been unable to contact patient by phone or mail in regards to referral. Thank you. [facility] documented in this encounter Plan of Treatment Not on file documented as of this encounter Visit Diagnoses Not on filedocumented in this encounter Additional Health Concerns Assessment Noted Time PHQ-9 Depression Total Score: 1 06/06/19 20 10:55 AM SPICE MILLER documented as of this encounter Care Teams Social Director Relationship Specialty Start Date End Date Bernard Cruz MD #[address] [place] [id number] PCP - General Family Medicine 09/05/15 documented as of this encounter
--- OUTSIDE RECORDS SUMMARY | 2024-05-25 06:10 | XMS_ITS | Encounter Summary ---
Author Organization [facility] Address [address] [place] [address] Phone Care Team Providers Care Parachute Taper Name Role Phone Bernard Cruz MD Primary Care Provider [phone] Reason for Visit * Reason Onset Date Comments Medication Refill 12/05/2019 Encounter Details Date Type Department Care Team (Late st Contact Info) Description 12/05/2019 Refill [facility] [address] [place] [address] Bernard Cruz MD #[address] [address] Medication Refill Social History Tobacco Use Types [...] [facility] Lidia Delvalle APN [employer] SPANISH TEACHER 4 months ago Intertrigo [facility] Bernard Cruz MD 6 months ago Non morbid obesity due to excess calories [facility] Bernard Cruz MD 8 months ago Sore throat [facility] Lidia Puckett APN [employer] SPANISH TEACHER 10 months ago Eyelid twitch [facility] iLdia Puckett APN [employer] SPANISH TEACHER Upcoming Appointments Future Appointments In 3 months Bernard Cruz MD [facility], [facility] REAL ESTATE ATTORNEY - Recent and Past Visits Recent Visits Date Type Provider Dept 09/11/19 Office Visit Lidia Puckett APN, CNP [facility] 07/31/19 Telemedicine Bernard Cruz MD [facility] 06/06/19 Office Visit Bernard Cruz MD [facility] 03/13/19 Office Visit Lidia Puckett APN, CNP [facility] 01/22/19 Office Visit Lidia Puckett APN, CNP [facility] 09/04/18 Office Visit Lidia Puckett APN, CNP [facility] Showing recent visits within past 460 days [...] 30 tabs Pharmacy preference for this medication: [facility] Outcome: [x]Medication pended, routed to surescripts []Medication [...] Total Score: 1 06/06/19 20 10:55 AM PATENT AGENT documented as of this encounter Care Teams Parachute Taper Relationship Specialty Start Date End Date Bernard Cruz MD #[address] [address] PCP - General Family Medicine 09/05/15 documented as of this encounter
--- OUTSIDE RECORDS SUMMARY | 2024-05-25 06:10 | XMS_ITS | Referral Summary ---
Author Organization [facility] Address [address] [place] [address] Care Team Providers Care Tractor Mechanic Apprentice Name Role Phone Kirk Kent MD Unavailable [phone] Bernard Cruz MD Primary Care Provider [phone] Allergies Active Allergy Reactions Criticality Noted Date [...] (04/22/2020): Added automatically from request for surgery [id number] Hydronephrosis, left 04/16/2020 022 Renal stone 04/16/2020 10/14/2021 Hepatitis 04/16/2020 10/14/2021 Bandemia 04/16/2020 10/14/2021 Chest pressure 04/10/2017 10/14/2021 Assessment & Plan (04/10/2017 10:35 PM AVIATION MAINTENANCE INSTRUCTOR): Cardiac Workup Was Negative Normal EKG , [...] 04/10/201710/02 Assessment & Plan (04/10/2017 10:47 PM AVIATION MAINTENANCE INSTRUCTOR): Neurology Was Consulted In ED - Recommended [...] 10/14/2021 Assessment & Plan (04/10/2017 10:44 PM AVIATION MAINTENANCE INSTRUCTOR): Will check For TSH/T4 Immunizations Immunization Administration [...] on file Legal Sex Female 1:46 AM AVIATION MAINTENANCE INSTRUCTOR Gender Identity Not on file Sexual Orientation [...] on file Medical Devices Implanted Type Area Hatch Tender Device Identifier Shelf Expiration Date Model / Serial / Lot [employer] [id number] Stent Taper 20cm 7fr Ureteral Hydroglide Inlay [place] Polymer Phreecoat Pusher Fluoro Marker Atraumatic Insertion Sterile Latex Free Disposable [place] Green - [id number] Implanted:Qty: 1 on 05/08/2020 by Kirk Kent MD at [facility] Left: Ureter [employer] [id number] 06/29/2022 [id number] / / [id number] Explanted Type Area Hatch Tender Device Identifier Shelf Expiration Date Model / Serial / Lot [employer] [id number] Inlay [place] 7fr 20cm Pusher Fluoro Marker Atraumatic Insertion Latex Free - [id number] Implanted:Qty: 1 on 04/16/2020 by Kirk Kent MD at [facility] Explanted:Qty: 1 on 05/08/2020 by Kirk Kent MD at [facility] Left: Ureter [employer] [id number] 06/29/2022 [id number] / / [id number] Insurance [facility] CHOICE PLUS [facility] [employer] [facility] OPEN ACCESS Advance Directives For more information, please contact: [phone] * Full Code (Latest Code Status on File) Date Activated Date Inactivated Comments 04/16/2020 2:21 AM 04/17/2020 7:40 PM * Full Code Date Activated Date Inactivated Comments 04/10/2017 6:38 PM 04/13/2017 4:38 PM Care Teams Tractor Mechanic Apprentice Relationship Specialty Start Date End Date Bernard Cruz MD [address] [address] PCP - General Family Medicine 10/14/21 [place] [address] [facility] [address] [place] [address] Consulting Physician Urology 04/17/20
--- OUTSIDE RECORDS SUMMARY | 2024-05-25 06:10 | XMS_ITS | Continuity of Care Document ---
Author Organization [facility] Address [address] [place] [address] Phone Care Team Providers Care Sanitation Engineer Name Role Phone Joshua Hawley MD Unavailable Unavailable Advance Directives Directive Yes / No Effective Date File Name No Information Encounters Encounter Description Practice Location Reason(s) For Visit Diagnoses Date Provider Providers Copied on Encounter [facility], [address], [place], [place], [id number], [place] tel:[phone] [facility] No Information Chandan Lewis. [address], [place], [place], [id number], [place]. tel:[phone] Referring Provider: Clayton Hood, [address], [place], [address]. tel:[phone] Family History Family Member Type Diagnosis Age At Onset No Information Payers Payer name Insurance type Covered alliance party ID Authoriza tion(s) BCBS INACTIVE OUT OF STATE [id number] [facility] CHOICE [facility] [id number] Social History Type Description Quantity Date Captured [...]
--- OUTSIDE RECORDS SUMMARY | 2024-05-25 06:10 | XMS_ITS | Continuity of Care Document ---
Author Organization [facility] Address [address] [place] [address] [place] [address] Phone Care Team Providers Care Shorer Name Role Phone Delia Fine MD Unavailable Unavailable Procedures Procedure Date Office/outpatient Visit, Est Advance Directives Directive Yes / No Effective Date File Name No Information Encounters Encounter Description Practice Location Reason(s) For Visit Diagnoses Date Provider Providers Copied on Encounter Office/outpat ient Visit, Est [facility], [address] [place] [address] [address], [place], [place], [id number], [place] tel:[phone] [facility] No Information [address] [facility] [address], [place], [address], [place]. tel:[phone] Family History Family Member Type Diagnosis Age At Onset No Information Payers Payer name Insurance type Covered republican ID Authoriza tikeila(s) [facility] Commercial CI [id number] Social History Type Description Quantity Date Captured [...]
[2024-05-25] MEDS: ACETAMINOPHEN 500 MG TABLET 1000 MG PO (12:35)
[2024-05-25] MEDS: LACTATED RINGERS 1,000 ML 30 ML IV CONT ×2 (12:40→13:51)
--- NOTE | 2024-05-25 12:43 | P.PNAN_ITS ---
Anes - Initial Pre Proc Eval Procedure: Operation Date: 05/25/24 14:00 Proposed Procedures p Laparoscopic Cholecystectomy with Intraoperative Cholangiogram Possible Open - Boo Turner DO Date/Time: 05/25/24 12:43 Surgeon: Boo Turner DO Pre Op Diagnosis: symptomatic cholelithiasis Patient Data Age: 38 Gender: F Height: 1.52 m Weight: 83.2 kg Allergies Allergy/AdvReac Type Severity Reaction Status Date / Time adhesive Allergy Unknown RASH Verified 05/21/24 14:47 latex Allergy Unknown Rash Verified 05/21/24 14:47 Home Medications ?Medication ?Instructions ?Recorded ?Confirmed ?Type Saccharomyces boulardii 250 mg 250 mg PO BID 06/22/21 05/22/24 History capsule (Daily Probiotic (S. boulardii)) cyanocobalamin (vitamin B-12) 1,000 mcg PO DAILY 06/22/21 05/22/24 History 1,000 mcg capsule methocarbamol 750 mg tablet 1,500 mg (2 x 750 mg) PO TID PRN 03/29/23 05/22/24 Rx vaginal spasms #90 tabs crisaborole 2 % topical ointment 60 applic topical HS 10/18/23 05/22/24 History (Eucrisa) cholecalciferol (vitamin D3) 125 5,000 unit PO DAILY 05/21/24 05/22/24 History mcg (5,000 unit) tablet (Vitamin D3) levocetirizine 5 mg tablet (24HR 5 mg PO DAILY PRN allergy symptoms 05/21/24 05/22/24 History Allergy Relief) Patient hx anesthesia problems: post op nausea/vomiting Family hx anesthesia problems: none Results Review: All pre-operative results and documents have been reviewed as part of the pre- operative evaluation. [facility] Past Medical History Medical History (Updated 05/25/24 @ 12:52 by Thang De Jesus DO) Asthma Occult spina bifida History of cystogram Cyclical pelvic pain Acid reflux Surgical History Surgical History H/O cystoscopy S/P laparoscopy History of 2 sections History of laser assisted in situ keratomileusis History of laparotomy (05/19/22) History of tonsillectomy History of spinal surgery Coccygectomy. History of lithotripsy History of surgical removal of ganglion cyst Left wrist. Family History Family History Mother Cervical cancer Father Diabetes mellitus Social History Social History Social History: Surrogate medical decision maker: [place] Gamino, spouse. Code status: Full code. Smoking status: Never smoker Second hand tobacco smoke exposure: Yes (Rarely) Alcohol intake: unknown Drinks per week: 0 Alcohol use details: very rare/ social Substance use: never Substance use type: does not use Do You Feel Safe in your Home?: Yes Lack of Transportation: YES Lack of Food: Never True Current Housing: I Have Housing Concerned About Future Housing: No Difficulty Paying Gas/Electric Bills: No Difficulty Paying for Meds: No Currently Unemployed: YES Education: Master's Degree or Higher Difficulty w/ Childcare or Family Care: No Living arrangements: with family Additional living arrangements comments: Lives with and 2 children in [place]. 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 Spiritual care concerns: No Anes - Eval Final PreProcedure Day of Procedure 05/25/24 12:43 Patient weight: obese Heart: regular rate and rhythm Lungs: clear to auscultation Airway: Mallampati scale class II Neurological: alert and oriented Last oral intake: >/= 8 hours ASA classification: III Emergent: no Anesthetic plan: proceed Anesthesia type and monitoring: general ETT and standard monitoring Results Review: All pre-operative results and documents have been reviewed as part of the pre- operative evaluation. Informed Consent: The patient's anesthetic plan and its attendant risks and benefits were discussed with the patient/family/POA. Questions were solicited and answers provided to the satisfaction of the patient/family/POA.
[2024-05-25] MEDS: KETOROLAC 15 MG/ML VIAL (*BKC) IV PUSH (12:45)
--- NOTE | 2024-05-25 12:50 | WPDHPUPDATE1 ---
History and Physical Update Update Date/Time: 05/25/24 12:50 History and Physical has been reviewed, including an updated exam of the patient. There are NO changes in the patient's condition. Risks, benefits, and alternatives have been discussed and questions answered. Patient agrees to proceed with procedure.
[2024-05-25] MEDS: ceFAZolin 2 GM/D5W 50 ML 2 GM/50 ML BAG IVPB (12:59)
[2024-05-25] MEDS: SCOPOLAMINE 1 MG PATCH 1 PATCH TRANSDERM (13:00)
[2024-05-25] MEDS: BUPIVACAINE/EPINEPHRINE 0.5% 50 ML VIAL 30 ML INFILTRATE (13:23)
--- NOTE | 2024-05-25 13:57 | W.PM.PROC2 ---
Procedure Note - Detailed Date of Procedure 05/25/24 Pre-op Diagnosis symptomatic cholelithiasis Post-op Diagnosis Same Procedure Performed Laparoscopic cholecystectomy with cholangiogram Surgeon Boo Turner, DO Anesthesia General and Local (0.5% bupivacaine) Indications This is a 38-year-old woman who presented with right upper quadrant abdominal pain. About 5 months she hysterectomy and had a postoperative CT which showed evidence of cholelithiasis. She was not having symptoms at that time, but over the last few weeks she has noticed some epigastric and right upper quadrant abdominal pain. Her symptoms seem to be after eating. She had a prior history of elevated liver enzymes, but they have since normalized. I discussed treatment options with the patient and decision was made to proceed with laparoscopic cholecystectomy with intraoperative cholangiogram, possible open. Findings Laparoscopic cholecystectomy with cholangiogram was performed. The gallbladder had a few pericholecystic adhesions but otherwise appeared normal. There were a few gallstones within the gallbladder. The cystic duct appeared normal in size. Intraoperative cholangiogram was obtained and there did not appear to be any evidence of obstruction within the common bile duct. The images were sent to the radiologist for interpretation. The gallbladder was removed and sent to the lab for pathology. Description of Procedure Procedure as well as risks, benefits, and alternatives were discussed with patient. Written consent was obtained and placed in chart prior to procedure. The patient was brought back to surgical suite. Patient was placed in supine position on operating table. Time-out was done to confirm patient and procedure. Patient was then intubated by the anesthesia department. Abdomen was prepped and draped in sterile fashion using chlorhexidine prep. 0.5% bupivacaine with epinephrine was infiltrated at each site of incision. A 5 millimeter incision was made near the umbilicus, and a 5 millimeter Optiview trocar was advanced through the abdominal layers under direct visualization. Once inside the abdominal cavity, carbon dioxide was insufflated to create a pneumoperitoneum. The camera was inserted and the abdomen was inspected. No immediate abnormalities were identified. The patient was placed in reverse Trendelenburg position and rotated slightly to the left. An 11 millimeter incision was made in the subxiphoid region, and an 11 millimeter trocar was inserted under direct visualization. Two 5 millimeter incisions were made in the right upper quadrant, and two 5 millimeter trocars were inserted under direct visualization. The gallbladder was identified and grasped at the fundus and retracted superiorly. It was then grasped at the infundibulum retracted laterally. Careful dissection around the neck of the gallbladder was performed using blunt dissection with a [place] grasper and hook electrocautery. The cystic duct was identified, and a window was created behind it. The cystic artery was also identified and a window was created behind it. The critical view of safety was identified, visualizing the cystic duct running directly into the neck of the gallbladder, and the cystic artery running directly into the wall of the gallbladder. A 5 millimeter clip receptionist airline lounge was then used to place 2 clips proximally and 1 clip distally on the cystic artery. It was then transected using endoscopic scissors. The Fish clamp was then placed across the neck of the gallbladder and the Fish cholangiocatheter was then advanced into the distal neck of the gallbladder. The catheter aspirated bile and flushed with saline with ease. The patient was then flattened out in bed and fluoroscopy was used to obtain an intraoperative cholangiogram with Omnipaque contrast. The images were sent to the radiologist for interpretation. The patient was then placed back in reverse Trendelenburg position. The cholangiocatheter was removed. A 5 mm Endoclip receptionist airline lounge was used to place 2 clips proximally 1 clip distally on the cystic duct. It was then transected using endoscopic scissors. Once safely away from the greta hepatitis, the gallbladder was dissected free from the liver bed using hook electrocautery. Hemostasis was achieved along the way. The gallbladder was removed completely and then removed through the subxiphoid port. The liver bed was then inspected. Hemostasis appeared adequate, and our clips appeared secure. The area was gently irrigated with sterile saline. No other abnormalities were seen. The patient was flattened out in bed, and 1 final inspection was made around the abdominal cavity. The subxiphoid port was removed, and a Rian Christina cone was used to approximate the fascia with an 0-Vicryl simple interrupted suture. The remaining ports were then removed under direct visualization, the camera was removed, and the pneumoperitoneum was released. The skin of the incisions was approximated using 4-0 Monocryl subcuticular sutures. Exofin glue was applied on top. The patient was then awakened from anesthesia, extubated, and transferred to recovery. Estimated Blood Loss 5 Pathology Yes (Gallbladder) Complications No immediate complications Condition Stable Disposition Same day [facility] Billing Surgery - Charge Forward: Surgery Billing
[2024-05-25] MEDS: oxyCODONE HCL (*CRX) 5 MG TAB IR PO (15:46)
== END 2024-05-25 16:08 | disposition home or self-care (01) ==
PROVIDERS: PCP Internal Medicine; Visit Provider Surgery
PROC: 0FT44ZZ Resection of Gallbladder, Percutaneous Endoscopic Approach (ICD-10-PCS; CPT 47562; principal; 2024-05-25 14:00)
DX: K80.10 Calculus of gallbladder with chronic cholecystitis without obstruction (principal); K82.8 Other specified diseases of gallbladder; K21.9 Gastro-esophageal reflux disease without esophagitis; J45.909 Unspecified asthma, uncomplicated; Q76.0 Spina bifida occulta; E66.9 Obesity, unspecified; Z68.35 Body mass index [BMI] 35.0-35.9, adult; Z98.890 Other specified postprocedural states; Z98.1 Arthrodesis status; Z80.49 Family history of malignant neoplasm of other genital organs
CPT/HCPCS: 47563; 74300; 88304; A9270; J0690; J1100; J1171; J1885; J2003; J2250; J2405; J2704; J3010; J7030; J7120; Q9966

== ENCOUNTER 2024-06-04 16:32 | Outpatient (CLI) | payer OTHER, SELFPAY ==
[2024-06-04 16:58] LABS: Hematocrit 39.7 % (37.0-47.0); Hemoglobin 12.7 g/dL (12.0-15.0); Mean Corpuscular Hemoglobin 27.5 pg (26-34); Mean Corpuscular Volume 86.1 fl (80-100); Mean Platelet Volume 10.4 fl (7.4-10.4); Platelet Count Result 290 k/mm3 (150-375); Red Blood Count 4.61 M/mm3 (4.2-5.4); Red Cell Distribution Width 15.4 % (11.5-14.5); White Blood Count 12.4 K/mm3 (4.5-10.0)
[2024-06-04 17:14] LABS: Alanine Aminotransferase 26 U/L (6-35); Albumin Level 4.3 g/dL (3.5-5.1); Alkaline Phosphatase 71 U/L (38-126); Anion Gap 12 mmol/L (4-12); Aspartate Amino Transferase 22 U/L (14-36); Bilirubin,Total 0.4 mg/dL (0.2-1.3); Blood Urea Nitrogen 22 mg/dL (7-17); Calcium 9.2 mg/dL (8.4-10.2); Carbon Dioxide 21 mmol/L (22-30); Chloride 105 mmol/L (98-107); Estimated Glomerular Filt Rate > 60; Glucose 128 mg/dL (65-110); Lipase 103 U/L (23-300); Potassium 4.3 mmol/L (3.4-5.0); Sodium 138 mmol/L (137-145)
== END 2024-06-04 16:33 | disposition home or self-care (01) ==
LOC: ANHLAB 16:33
PROVIDERS: PCP Internal Medicine; Visit Provider Surgery
DX: K80.10 Calculus of gallbladder with chronic cholecystitis without obstruction (principal)
CPT/HCPCS: 36415; 80053; 83690; 85027

== ENCOUNTER 2024-08-11 09:18 | Outpatient (CLI) | payer OTHER, SELFPAY ==
--- NOTE | ~2024-08-11 | MM_ITS ---
EXAMINATION: MM screening solo BI w analisa HISTORY: Screening mammogram, family history of breast cancer in her mother. TECHNIQUE: Craniocaudal and mediolateral oblique 3-D tomosynthesis images were obtained and synthetic 2-D images were generated. CAD analysis was submitted and interpreted. COMPARISON: No prior mammogram is available for comparison at this institution. BREAST PARENCHYMAL COMPOSITION:Not Dense. There are scattered areas of fibroglandular density. FINDINGS: Possible asymmetry at the outer right breast. No parenchymal abnormality of the left breast seen. No suspicious microcalcifications. IMPRESSION: Possible right breast asymmetry at the outer aspect. Spot compression views and possibly ultrasound are recommended for further evaluation. BI-RADS Category 0: Incomplete: Needs additional imaging evaluation. Reviewed, dictated and finalized at [facility]. IMPRESSION: Possible right breast asymmetry at the outer aspect. Spot compression views an d possibly ultrasound are recommended for further evaluation. BI-RADS Category 0: Incomplete: Needs additional imaging evaluation.
== END 2024-08-11 09:19 | disposition home or self-care (01) ==
LOC: MICIMG 09:18
PROVIDERS: PCP Internal Medicine; Visit Provider Obstetrics & Gynecology
DX: Z12.31 Encounter for screening mammogram for malignant neoplasm of breast (principal); Z80.3 Family history of malignant neoplasm of breast; N64.89 Other specified disorders of breast
CPT/HCPCS: 77063; 77067

== ENCOUNTER 2024-09-11 10:01 | Outpatient (CLI) | payer OTHER, SELFPAY ==
--- NOTE | ~2024-09-11 | MMUS_ITS ---
EXAMINATION: MM diagnostic solo RT w analisa, US breast RT limited HISTORY: Follow-up right breast asymmetry TECHNIQUE: Additional 3-D tomosynthesis images of the right breast were performed and synthetic 2-D i mages were generated. CAD analysis was submitted and interpreted. High resolution Limited right breas t ultrasound was performed. COMPARISON: 08/11/2024 BREAST PARENCHYMAL COMPOSITION: Not dense: There are scattered areas of fibroglandular density. FINDINGS: MAMMOGRAPHIC FINDINGS: There is a persistent focal asymmetry laterally in the right breast, although no discrete mass is jeremy ntified, possibly superimposed fibroglandular tissue. No suspicious calcifications or architectural d istortion. ULTRASOUND: Limited right breast ultrasound: Normal heterogeneous echotexture without focal solid or cystic mass. IMPRESSION: 1. Probable benign focal asymmetry laterally in the right breast without sonographic correlate. 2. Recommend 6 month follow-up diagnostic right mammogram. BI-RADS category 3, probably benign findings. Reviewed, dictated and finalized at location [facility]. IMPRESSION: 1. Probable benign focal asymmetry laterally in the right breast without sonogr aphic correlate. 2. Recommend 6 month follow-up diagnostic right mammogram. BI-RADS category 3, probably benign findings.
== END 2024-09-11 10:02 | disposition home or self-care (01) ==
PROVIDERS: PCP Internal Medicine; Visit Provider Obstetrics & Gynecology
DX: R92.8 Other abnormal and inconclusive findings on diagnostic imaging of breast (principal)
CPT/HCPCS: 76642; 77061; 77065; G0279